=== PATIENT | female | born 1955 | race Caucasian/White ===

== ENCOUNTER 2019-08-01 13:28 | Outpatient (CLI) | payer OTHER, SELFPAY ==
[2019-08-01 13:54] LABS: Hematocrit 50.2 % (37.0-47.0); Hemoglobin 16.3 g/dL (12.0-15.0); Mean Corpuscular HGB Conc 32.5 g/dl (32-36); Mean Corpuscular Hemoglobin 29.7 pg (26-34); Mean Corpuscular Volume 91.6 fl (80-100); Mean Platelet Volume 10.3 fl (7.4-10.4); Platelet Count Result 246 k/mm3 (150-375); Red Blood Count 5.48 M/mm3 (4.2-5.4); White Blood Count 8.7 K/mm3 (4.5-10.0)
[2019-08-01 14:08] LABS: Alanine Aminotransferase 25 U/L (4-35); Albumin Level 4.6 g/dL (3.5-5.1); Alkaline Phosphatase 95 U/L (38-126); Amylase 91 U/L (30-110); Aspartate Amino Transferase 26 U/L (14-36); Bilirubin,Total 0.3 mg/dL (0.2-1.3); Blood Urea Nitrogen 13 mg/dL (7-17); Calcium 9.2 mg/dL (8.4-10.2); Carbon Dioxide 27 mmol/L (22-30); Chloride 94 mmol/L (98-107); Estimated Glomerular Filt Rate > 60; Glucose 137 mg/dL (65-105); Lipase 162 U/L (23-300); Potassium 4.1 mmol/L (3.4-5.0); Sodium 134 mmol/L (137-145)
== END 2019-08-01 13:29 | disposition home or self-care (01) ==
PROVIDERS: PCP Internal Medicine; Visit Provider Surgery
DX: E11.8 Type 2 diabetes mellitus with unspecified complications (principal); K81.1 Chronic cholecystitis
CPT/HCPCS: 36415; 80053; 82150; 83690; 85027

== ENCOUNTER 2019-08-08 00:56 | Day surgery (SDC) | payer OTHER, SELFPAY ==
[2019-07-30 13:28] VITALS: BMI 31.8
[2019-08-08] VITALS (11 sets, daily range): BP systolic 104–139; BP diastolic 41–69; PULSE 75–86; RESP 14–20; TEMP 36.6; O2SAT 91–100
[2019-08-08] MEDS: LACTATED RINGERS 1,000 ML 30 ML IV CONT ×2 (06:30→09:14)
[2019-08-08 06:40] LABS: Glucose Point of Care 112 (65-105)
--- NOTE | 2019-08-08 06:43 | WPDANESEPP ---
Anes - Eval Pre Procedure Procedure: Operation Date: 08/08/19 07:30 Proposed Procedures p Laparoscopic Cholecystectomy, Possible Intraoperative Cholangiogram, Possible Open - Leno Suárez MD Date/Time: 08/08/19 06:43 Pre Op Diagnosis: Acute Cholecystitis Patient Data Age: 63 Gender: F Height: 5 ft Weight: 73.94 kg Allergies Allergy/AdvReac Type Severity Reaction Status Date / Time thiopental AdvReac Intermediate N/V AND Verified 08/08/19 06:23 RASH WITH SODIUM PENTOTHAL Home Medications Medication Instructions Recorded Confirmed Type metformin 1,000 mg tablet 1,000 mg PO BID #180 tablet 05/20/19 08/08/19 Rx atorvastatin 40 mg tablet 40 mg PO DAILY 06/17/19 08/08/19 History glycopyrrolate 9 mcg-formoterol 2 puff INHALATION BID PRN 06/17/19 08/08/19 History 4.8 mcg HFA aerosol inhaler vortioxetine 10 mg tablet 10 mg PO DAILY 06/17/19 08/08/19 History ertugliflozin 15 mg tablet 15 mg PO QAM #90 tablet 06/18/19 08/08/19 Rx ondansetron HCl 4 mg tablet 4 mg PO Q8H PRN #30 tablet 07/18/19 08/08/19 Rx aspirin [Adult Low Dose Aspirin] 81 mg PO DAILY 07/21/19 08/08/19 History glimepiride 2 mg PO DAILY 07/21/19 08/08/19 History pantoprazole 40 mg PO QAM #30 tablet 07/23/19 08/08/19 Rx multivitamin with minerals 1 tablet PO DAILY 07/30/19 08/08/19 History [Hair,Skin and Nails] trazodone 100 mg PO HS 07/30/19 08/08/19 History nystatin 100,000 unit/gram topical 1 applic TOPICAL BID #15 gm 08/06/19 08/08/19 Rx powder Laboratory Tests 08/08/19 06:36 POC Capillary Glucose 112 mg/dl H mg/dl (65-105) Patient hx anesthesia problems: none Family hx anesthesia problems: none PMFSH Past Medical History Medical History Anxiety and depression Benign essential hypertension Biliary dyskinesia Chronic low back pain Chronic obstructive pulmonary disease Mixed hyperlipidemia Pancreatitis Rheumatoid arthritis of unspecified site with involvement of other organs and systems Type 2 diabetes mellitus with complication Surgical History Surgical History H/O tubal ligation History of appendectomy Open appendectomy for ruptured appendicitis History of arthroplasty of finger of right hand History of tonsillectomy S/P thoracentesis On the left Total knee replacement status Left Family History Family History Grandparent Diabetes mellitus Father Lung cancer Mother Heart attack Social History Social History Social History: The patient has a significant other but does not have a durable power employee benefits attorney for healthcare. The patient desires to be a full code. She has 3 sons. The patient is on disability. She has smoked a pack a cigarettes a day for 40 years. She may be drinks twice a year. She does use marijuana about twice a week for her pain. Smoking packs per day: 1 Smoking cigarettes per day: 20.0 Years smoked: 40 Smoking pack-years: 40.00 Smoking status: Current every day smoker Tobacco type: cigarettes Smoking end date: 07/20/19 Alcohol intake: current Substance use: current Substance use type: marijuana Other substance usage details: occasional marijuana use Last use: 07-20-19 Additional living arrangements comments: Lives with her boyfriend. Additional occupation/education comments: On disability. Gender identity (if verbalized by the patient): Female Spiritual care concerns: No Agree to blood products: Yes Exam Day of Procedure 08/08/19 06:43
--- NOTE | 2019-08-08 06:49 | P.PNAN_ITS ---
Anes - Eval Final PreProcedure Day of Procedure 08/08/19 06:49 Patient weight: obese Heart: regular rate and rhythm Lungs: clear to auscultation and normal air movement Airway: Mallampati scale class II Neurological: alert and oriented Last oral intake: >/= 8 hours ASA classification: III Emergent: no Anesthetic plan: proceed Anesthesia type and monitoring: general ETT Informed Consent: The patient's anesthetic plan and its attendant risks and be nefits were discussed with the patient/family/POA. Questions were solicited and answers provided to the satisfaction of the patient/family/POA.
--- NOTE | 2019-08-08 07:10 | SUR.PREOP ---
0620-STATES NO CHANGE SINCE INTERVIEW.
--- NOTE | 2019-08-08 07:14 | WPDHPUPDATE1 ---
History and Physical Update Update Date/Time: 08/08/19 07:14 History and Physical has been reviewed, including an updated exam of the patient. There are NO changes in the patient's condition. Risks, benefits, and alternatives have been discussed and questions answered. Patient agrees to proceed with procedure.
[2019-08-08] MEDS: ceFAZolin 2 GM/D5W 50 ML 2 GM/50 ML BAG IVPB (07:26)
[2019-08-08] MEDS: BUPIVACAINE/EPINEPHRINE 0.5% 30 ML VIAL INFILTRATE (07:48)
--- NOTE | 2019-08-08 09:15 | PM.PROC ---
Procedure Note - Detailed Date of procedure: 08/08/19 Pre-op diagnosis: Acute Cholecystitis Post-op diagnosis: same Procedure performed: Laparoscopic cholecystectomy Description of procedure: Procedure Details: Patient was seen preoperatively in the holding area and risks, benefits and alternatives confirmed. Patient was taken to the operating room and general anesthesia was induced. A time out was then preformed with the surgery team confirming patient and site of surgery. The abdomen was prepped and draped in the usual sterile fashion. Incision was made just below the umbilicus. Two stay sutures of O- Vicryl were used to elevate the mid-line fascia beneath the umbilicus and a small incision was made under direct vision. The peritoneum was entered. The 12 mm Servin cannula was introduced under direct vision. First under low flow and then under high flow the abdomen was insufflated with carbon dioxide never exceeding a pressure of 14. Three 5 mm trocars were then introduced under direct vision. The following trocars were introduced under direct vision: a 5 mm in the epigastrium and two 5 mm trocars along the right costal margin. There were some omental adhesions on the underside of the umbilicus and also to the underside of the gallbladder that were taken down with blunt and sharp dissection. A small amount of bleeding occurred but it was controlled with Bovie cautery. The gall bladder was grasped and the cystic duct and artery were dissected free. A window of safety was developed and a picture of taken was taken of this with the laparoscope. Following this both the cystic duct and cystic artery were clipped with an 5 mm endo-clip pipe organ installer. The cystic duct and then the cystic artery were then transected. The gall bladder was removed using electrocautery and then removed in an endobag because a small hole began draining some bile from the gallbladder as we dissected it free from the liver. The endobag with the gallbladder in it was then removed via the umbilical incision. Careful palpation of the gallbladder both within the bag and then at the end of the procedure removed from the bag did not reveal any stones within the gallbladder. The trocars were removed visualizing hemostasis and the remaining gas evacuated. The large trocar site at the umbilicus was closed with an 0 vicryl figure of 8 suture. The 2 stay sutures mentioned above on either side of the fascia were also tied together to help approximate this midline fascia. Further local anesthetic was placed into each incision for postop pain control. The skin incisions were closed with a subcuticular of 4-0 Monocryl. Surgical glue then was applied to all the incisions. Patient tolerated the procedure well was taken to the recovery room in good condition. Anesthesia: MULUGETA Surgeon: Leno Suárez MD Bleach Boiler Filler: YINKA Cade, OR 1st assist Estimated blood loss (mL): 30 Drains: No Packing: No Pathology: yes (The gallbladder) Complications: No immediate complications Condition: stable Disposition: PACU Findings: Patient had thin walled non inflamed gallbladder. There were however admit omental adhesions to the underside of the gallbladder. There were also omental he adhesions directly under the umbilicus extending down underneath the infraumbilical scar that she has in the midline. No other obvious abnormalities within the abdominal cavity.
[2019-08-08 09:44] LABS: Glucose Point of Care 178 (65-105)
[2019-08-08] MEDS: HYDROMORPHONE HCL 1 MG/ML INJ 0.25 MG IV PUSH ×4 (09:53→10:08)
== END 2019-08-08 11:30 | disposition home or self-care (01) ==
PROVIDERS: PCP Internal Medicine; Visit Provider Surgery
PROC: 0FT44ZZ Resection of Gallbladder, Percutaneous Endoscopic Approach (ICD-10-PCS; CPT 47562; principal; 2019-08-08 07:30)
DX: K81.1 Chronic cholecystitis (principal); E11.9 Type 2 diabetes mellitus without complications; I10 Essential (primary) hypertension; E78.2 Mixed hyperlipidemia; J44.9 Chronic obstructive pulmonary disease, unspecified; M06.9 Rheumatoid arthritis, unspecified; F41.8 Other specified anxiety disorders; Z79.84 Long term (current) use of oral hypoglycemic drugs; Z79.82 Long term (current) use of aspirin; F17.210 Nicotine dependence, cigarettes, uncomplicated; F12.90 Cannabis use, unspecified, uncomplicated
CPT/HCPCS: 47562; 88304; A9270; J0690; J1100; J1170; J2250; J2370; J2405; J2704; J2710; J3010; J7120

== ENCOUNTER 2019-08-22 08:59 | Outpatient (CLI) | payer OTHER, SELFPAY ==
[2019-08-22 09:57] LABS: Alanine Aminotransferase 27 U/L (4-35); Albumin Level 4.5 g/dL (3.5-5.1); Alkaline Phosphatase 101 U/L (38-126); Aspartate Amino Transferase 29 U/L (14-36); Bilirubin,Total 0.5 mg/dL (0.2-1.3); Blood Urea Nitrogen 11 mg/dL (7-17); Carbon Dioxide 30 mmol/L (22-30); Chloride 96 mmol/L (98-107); Estimated Glomerular Filt Rate > 60; Glucose 133 mg/dL (65-105); Potassium 4.2 mmol/L (3.4-5.0); Sodium 139 mmol/L (137-145)
== END 2019-08-22 09:00 | disposition home or self-care (01) ==
PROVIDERS: PCP Internal Medicine; Visit Provider Nurse Practitioner Family
DX: K81.9 Cholecystitis, unspecified (principal)
CPT/HCPCS: 36415; 80053

== ENCOUNTER 2020-01-06 09:46 | Outpatient (CLI) | payer OTHER, SELFPAY ==
[2020-01-06 10:05] LABS: Basophils Percent Auto 0.3 % (0.2-1.2); Eosinophils Absolute Auto 0.2 K/mm3 (0-0.3); Eosinophils Percent Auto 2.6 % (0-4.4); Hematocrit 49.4 % (37.0-47.0); Hemoglobin 15.7 g/dL (12.0-15.0); Immature Granulocyte Absolute 0.01 K/mm3 (0.00-0.031); Immature Granulocyte Percent A 0.1 % (0-0.5); Lymphocytes Absolute Auto 1.33 K/mm3 (0.9-3.2); Lymphocytes Percent Auto 17.4 % (18.3-44.2); Mean Corpuscular HGB Conc 31.8 g/dl (32-36); Mean Corpuscular Hemoglobin 29.6 pg (26-34); Mean Platelet Volume 10.3 fl (7.4-10.4); Monocytes Absolute Auto 0.5 K/mm3 (0.1-0.6); Monocytes Percent Auto 6.9 % (2.6-8.5); Neutrophils Absolute Auto 5.6 K/mm3 (1.3-6.7); Neutrophils Percent Auto 72.7 % (45.5-73.1); Platelet Count Result 189 k/mm3 (150-375); Red Blood Count 5.31 M/mm3 (4.2-5.4); Red Cell Distribution Width 12.5 % (11.5-14.5); White Blood Count 7.7 K/mm3 (4.5-10.0)
[2020-01-06 10:18] LABS: Alanine Aminotransferase 21 U/L (4-35); Albumin Level 4.4 g/dL (3.5-5.1); Alkaline Phosphatase 100 U/L (38-126); Aspartate Amino Transferase 28 U/L (14-36); Bilirubin,Total 0.3 mg/dL (0.2-1.3); Blood Urea Nitrogen 10 mg/dL (7-17); Calcium 8.8 mg/dL (8.4-10.2); Carbon Dioxide 31 mmol/L (22-30); Chloride 99 mmol/L (98-107); Estimated Glomerular Filt Rate > 60; Glucose 164 mg/dL (65-105); Hemoglobin A1C 7.4 % (<5.7); Sodium 137 mmol/L (137-145)
[2020-01-06 10:45] LABS: Creatinine Urine 49.2 mg/dL
[2020-01-06 11:49] LABS: MALB Creatinine Ratio < 12.2 mg/g (0-30); Microalbumin Urine Random < 6.0 mg/L (0-16.7)
== END 2020-01-06 09:47 | disposition home or self-care (01) ==
PROVIDERS: PCP Internal Medicine; Visit Provider Internal Medicine
DX: E11.8 Type 2 diabetes mellitus with unspecified complications (principal)
CPT/HCPCS: 36415; 80053; 82043; 83036; 85025

== ENCOUNTER 2020-04-22 10:48 | Outpatient (CLI) | payer OTHER, SELFPAY ==
[2020-04-22 11:36] LABS: Basophils Percent Auto 0.4 % (0.2-1.2); Eosinophils Absolute Auto 0.2 K/mm3 (0-0.3); Eosinophils Percent Auto 2.8 % (0-4.4); Hematocrit 54.1 % (37.0-47.0); Hemoglobin 17.3 g/dL (12.0-15.0); Immature Granulocyte Absolute 0.02 K/mm3 (0.00-0.031); Immature Granulocyte Percent A 0.3 % (0-0.5); Lymphocytes Absolute Auto 1.33 K/mm3 (0.9-3.2); Lymphocytes Percent Auto 17.5 % (18.3-44.2); Mean Corpuscular Hemoglobin 30.2 pg (26-34); Mean Corpuscular Volume 94.6 fl (80-100); Mean Platelet Volume 10.4 fl (7.4-10.4); Monocytes Absolute Auto 0.5 K/mm3 (0.1-0.6); Monocytes Percent Auto 6.8 % (2.6-8.5); Neutrophils Absolute Auto 5.5 K/mm3 (1.3-6.7); Neutrophils Percent Auto 72.2 % (45.5-73.1); Platelet Count Result 241 k/mm3 (150-375); Red Blood Count 5.72 M/mm3 (4.2-5.4); Red Cell Distribution Width 12.9 % (11.5-14.5); White Blood Count 7.6 K/mm3 (4.5-10.0)
[2020-04-22 11:49] LABS: Alanine Aminotransferase 22 U/L (4-35); Albumin Level 4.7 g/dL (3.5-5.1); Alkaline Phosphatase 106 U/L (38-126); Anion Gap 9 mmol/L (8-16); Aspartate Amino Transferase 34 U/L (14-36); Bilirubin,Total 0.4 mg/dL (0.2-1.3); Blood Urea Nitrogen 14 mg/dL (7-17); Calcium 9.1 mg/dL (8.4-10.2); Carbon Dioxide 32 mmol/L (22-30); Chloride 98 mmol/L (98-107); Estimated Glomerular Filt Rate > 60; Glucose 194 mg/dL (65-105); Hemoglobin A1C 6.9 % (<5.7); Potassium 4.8 mmol/L (3.4-5.0); Sodium 139 mmol/L (137-145)
[2020-04-22 12:53] LABS: Creatinine Urine 29.3 mg/dL
[2020-04-22 12:58] LABS: MALB Creatinine Ratio < 20.5 mg/g (0-30); Microalbumin Urine Random < 6.0 mg/L (0-16.7)
== END 2020-04-22 10:49 | disposition home or self-care (01) ==
LOC: ANHLAB 10:49
PROVIDERS: PCP Internal Medicine; Visit Provider Internal Medicine
DX: E11.8 Type 2 diabetes mellitus with unspecified complications (principal)
CPT/HCPCS: 36415; 80053; 82043; 83036; 85025

== ENCOUNTER 2020-05-13 09:49 | Outpatient (CLI) | payer OTHER, SELFPAY ==
--- NOTE | ~2020-05-13 | MM_ITS ---
EXAMINATION: MM screening [facility] BI w [place] HISTORY: Screening mammogram TECHNIQUE: Craniocaudal and mediolateral oblique 3-D tomosynthesis images were obtained and synthetic 2-D images were generated. CAD analysis was submitted and interpreted. COMPARISON: 12/25/2018, 06/02/2016 BREAST PARENCHYMAL COMPOSITION: The breasts are almost entirely fatty. FINDINGS: RIGHT BREAST: There is no evidence of suspicious mass, calcification, or architectural distortion to suggest malignancy. There has been no significant interval change. LEFT BREAST: A mass is present in the far posterior third of the breast on mediolateral oblique tomos ynthesis image . IMPRESSION: 1. Left breast mass. 2. Additional mammographic views and possible breast ultrasound are recommended. BI-RADS Category 0: Incomplete: Needs additional imaging evaluation. Reviewed, dictated and finalized at location A. GER STERILE IMPRESSION: 1. Left breast mass. 2. Additional mammographic views and possible breast ultrasound are recommended . BI-RADS Category 0: Incomplete: Needs additional imaging evaluation.
== END 2020-05-13 09:50 | disposition home or self-care (01) ==
LOC: ANHIMG 09:53
PROVIDERS: PCP Internal Medicine; Visit Provider Internal Medicine
DX: Z12.31 Encounter for screening mammogram for malignant neoplasm of breast (principal); R92.8 Other abnormal and inconclusive findings on diagnostic imaging of breast
CPT/HCPCS: 77063; 77067

== ENCOUNTER 2020-06-02 11:15 | Outpatient (CLI) | payer OTHER, SELFPAY ==
--- NOTE | ~2020-06-02 | US_ITS ---
EXAMINATION: US pelvic complete w TV DATE: 06/02/2020 11:36 INDICATION: Postmenopausal bleeding. TECHNIQUE: Multiple transabdominal and transvaginal sonographic images of the pelvis were obtained. COMPARISON: CT abdomen and pelvis 08/26/2018 FINDINGS: TRANSABDOMINAL ULTRASOUND: The uterus measures 5.0 x 2.5 x 3.8 cm. There is no free fluid in the pelvis. TRANSVAGINAL ULTRASOUND: The endometrial complex measures 6 mm in thickness. The ovaries are not visualized. IMPRESSION: 1. Thickened endometrial complex. The differential diagnosis includes endometrial hyperplasia, polyp, and carcinoma. Biopsy is recommended. Reviewed, dictated and finalized at location A. TRICAL LINE SPLICER IMPRESSION: 1. Thickened endometrial complex. The differential diagnosis includes endometri al hyperplasia, polyp, and carcinoma. Biopsy is recommended.
== END 2020-06-02 11:16 | disposition home or self-care (01) ==
LOC: ANHIMG 11:16
PROVIDERS: PCP Internal Medicine; Visit Provider Obstetrics & Gynecology
DX: N95.0 Postmenopausal bleeding (principal)
CPT/HCPCS: 76830; 76856

== ENCOUNTER 2020-06-07 12:13 | Outpatient (CLI) | payer OTHER, SELFPAY ==
--- NOTE | ~2020-06-07 | MMUS_ITS ---
EXAMINATION: MM diagnostic mammo unilat LT, US breast LT limited HISTORY: Follow-up left breast mass TECHNIQUE: Additional 3-D tomosynthesis images of the left breast were performed and synthetic 2-D im ages were generated. CAD analysis was submitted and interpreted. High resolution left breast ultrasou nd was performed. COMPARISON: None BREAST PARENCHYMAL COMPOSITION: Breast composed of scattered areas of fibroglandular density FINDINGS: MAMMOGRAPHIC FINDINGS: There is a 5 mm mass in the lower outer quadrant of the left breast. There are benign calcifications . ULTRASOUND: Left breast ultrasound: At 12:00, 6 cm from the nipple there is a 4 mm cyst. There is a focal echogenic area with posterior s hadowing at 2:00, 2 cm from the nipple, corresponding to calcification. IMPRESSION: 1. No evidence for malignancy in either breast. Benign findings of the left breast. 2. Routine yearly screening mammogram and regular clinical breast examination are recommended. BI-RADS Category 2: Benign finding(s). Reviewed, dictated and finalized at location A. UR CHLORIDE OPERATOR IMPRESSION: 1. No evidence for malignancy in either breast. Benign findings of the left carlos ast. 2. Routine yearly screening mammogram and regular clinical breast examination a re recommended. BI-RADS Category 2: Benign finding(s).
== END 2020-06-07 12:14 | disposition home or self-care (01) ==
LOC: ANHIMG 12:14
PROVIDERS: PCP Internal Medicine; Visit Provider Internal Medicine
DX: N63.20 Unspecified lump in the left breast, unspecified quadrant (principal)
CPT/HCPCS: 76642; 77065

== ENCOUNTER 2020-09-01 11:23 | Outpatient (CLI) | payer OTHER, SELFPAY ==
[2020-09-01 12:04] LABS: Hematocrit 49.9 % (37.0-47.0); Hemoglobin 16.2 g/dL (12.0-15.0); Mean Corpuscular HGB Conc 32.5 g/dl (32-36); Mean Corpuscular Hemoglobin 30.2 pg (26-34); Mean Corpuscular Volume 92.9 fl (80-100); Mean Platelet Volume 10.2 fl (7.4-10.4); Platelet Count Result 217 k/mm3 (150-375); Red Blood Count 5.37 M/mm3 (4.2-5.4); Red Cell Distribution Width 12.3 % (11.5-14.5)
[2020-09-01 12:29] LABS: Alanine Aminotransferase 24 U/L (4-35); Albumin Level 4.4 g/dL (3.5-5.1); Alkaline Phosphatase 90 U/L (38-126); Anion Gap 7 mmol/L (8-16); Aspartate Amino Transferase 30 U/L (14-36); Bilirubin,Total 0.3 mg/dL (0.2-1.3); Blood Urea Nitrogen 12 mg/dL (7-17); Calcium 8.8 mg/dL (8.4-10.2); Carbon Dioxide 33 mmol/L (22-30); Chloride 101 mmol/L (98-107); Cholesterol 146 mg/dL (0-200); Estimated Glomerular Filt Rate > 60; Glucose 182 mg/dL (65-105); HDL Direct 58 mg/dL; Potassium 4.3 mmol/L (3.4-5.0); Sodium 141 mmol/L (137-145); Triglycerides 175 mg/dL (<150)
[2020-09-01 12:39] LABS: LDL Cholesterol Direct 56 mg/dL
[2020-09-01 13:06] LABS: Hemoglobin A1C 6.3 % (<5.7)
[2020-09-01 13:20] LABS: Vitamin D 25 Hydroxy 27.9 ng/mL
[2020-09-01 13:23] LABS: Creatinine Urine 48.2 mg/dL
[2020-09-01 14:04] LABS: MALB Creatinine Ratio < 12.4 mg/g (0-30); Microalbumin Urine Random < 6.0 mg/L (0-16.7)
== END 2020-09-01 11:24 | disposition home or self-care (01) ==
PROVIDERS: PCP Internal Medicine; Visit Provider Internal Medicine
DX: D75.1 Secondary polycythemia (principal); E11.8 Type 2 diabetes mellitus with unspecified complications; F32.9 Major depressive disorder, single episode, unspecified; F41.9 Anxiety disorder, unspecified; I10 Essential (primary) hypertension; E78.2 Mixed hyperlipidemia; G25.81 Restless legs syndrome; E55.9 Vitamin D deficiency, unspecified
CPT/HCPCS: 36415; 80053; 80061; 82043; 82306; 83036; 84443; 85027

== ENCOUNTER 2020-09-10 16:21 | Outpatient (CLI) | payer OTHER, SELFPAY ==
--- NOTE | ~2020-09-10 | CT_ITS ---
EXAMINATION: CT lung screening DATE: 09/10/2020 16:41 INDICATION: Smoker, cough. COPD. Personal history of nicotine dependence. TECHNIQUE: Computed tomography (CT) of the chest was performed without intravenous contrast. The dose -length product was 126.19 mGy-cm. Automated exposure control and iterative reconstruction technique were employed. COMPARISON: CT dated 01/09/2019 FINDINGS: Heart size is normal. Nonenlarged mediastinal lymph nodes, likely reactive. No significant pleural or pericardial effusion. There is atherosclerosis of the aorta and coronary arteries. There a re cholecystectomy clips. There is a subsolid 3 mm nodule left lower lobe, image 50. There is a some solid right lower lobe nodule, superior segment, image 46, not definitely seen on prior examination. There is a subsolid 3 mm nodule left lower lobe, image 64. No endobronchial lesions. No pneumothorax. No focal parenchymal consolidation. Mild thoracic spondylosis. No lytic or blastic lesions. IMPRESSION: 1. Lung-RADS category 2: Benign appearance or behavior. Continue annual screening with noncontrast lo w-dose chest CT in 12 months. Reviewed, dictated and finalized at location A. ILL HAND IMPRESSION: 1. Lung-RADS category 2: Benign appearance or behavior. Continue annual screeni ng with noncontrast low-dose chest CT in 12 months.
== END 2020-09-10 16:22 | disposition home or self-care (01) ==
LOC: ANHIMG 16:22
PROVIDERS: PCP Internal Medicine; Visit Provider Internal Medicine
DX: Z87.891 Personal history of nicotine dependence (principal)
CPT/HCPCS: 71271

== ENCOUNTER 2020-10-26 14:50 | Inpatient (IN) | payer OTHER, SELFPAY ==
[2020-10-26] VITALS (11 sets, daily range): BP systolic 139–164; BP diastolic 64–134; PULSE 89–110; RESP 17–42; TEMP 36.3–36.4; O2SAT 93–96; BMI 32.7
--- NOTE | ~2020-10-26 | XR_ITS ---
EXAMINATION: XR chest 1V portable 10/28/2020 14:49 INDICATION: Chest pain PROCEDURE: AP portable chest COMPARISON: Comparison to multiple prior studies sequentially, with oldest reviewed study dated 05/02. FINDINGS: The lungs are clear. The cardiomediastinal silhouette is within normal limits. There are no pleural effusions. There is no pneumothorax suspected. IMPRESSION: 1: NO ACUTE CARDIOPULMONARY DISEASE. Reviewed, dictated and finalized at location B.
--- NOTE | ~2020-10-26 | CT_ITS ---
EXAMINATION: CTA chest PE protocol DATE: 10/26/2020 17:56 INDICATION: Shortness of breath and chest pain TECHNIQUE: Computed tomography (CT) pulmonary angiogram of the chest was performed with 100 mL Omnipa que-350 intravenous contrast. Additional 3D reconstructions utilizing coronal maximum intensity proje ction (MIP) were performed. Automated exposure control and iterative reconstruction technique were em ployed. The dose-length product was 499.99 mGy-cm. COMPARISON: Chest CT dated 09/10/2020 FINDINGS: Good contrast opacification of the pulmonary arteries. There is mild streak artifact from dense contr ast in the superior vena cava and right atrium. Mild moderate basilar predominant scattered respirato ry motion artifact which decreases sensitivity in some of the smaller basilar subsegmental pulmonary arteries. No pulmonary embolism. And of atelectasis/scarring in the right middle lobe. There are mult iple new tiny centrilobular nodules with tree-in-bud pattern scattered throughout both lungs consiste nt with endobronchial spread of infectious or inflammatory disease no pulmonary edema, pleural effusi on or pneumothorax. Heart size is normal. Atherosclerotic coronary artery calcification. Thoracic aor ta is normal in caliber with no dissection. Interval increase in size of a a few likely reactive medi astinal and bilateral hilar lymph nodes the largest a 1.9 x 1.3 cm subcarinal lymph node. Cholecystec remington clips in the right upper quadrant. Mild thoracic spondylosis. IMPRESSION: 1. No pulmonary embolism. 2. Numerous small centrilobular pulmonary nodules with tree-in-bud pattern scattered throughout both lungs consistent with endobronchial spread of likely infectious or inflammatory disease. 2. Likely reactive mild mediastinal and bilateral hilar lymphadenopathy. Reviewed, dictated and finalized at location A. IMPRESSION: 1. No pulmonary embolism. 2. Numerous small centrilobular pulmonary nodules with tree-in-bud pattern scat tered throughout both lungs consistent with endobronchial spread of likely infe ctious or inflammatory disease. 2. Likely reactive mild mediastinal and bilateral hilar lymphadenopathy.
--- NOTE | ~2020-10-26 | XR_ITS ---
EXAMINATION: XR chest 2V DATE: 10/26/2020 15:22 INDICATION: Shortness of breath and fever. TECHNIQUE: Frontal and lateral views of the chest were obtained. COMPARISON: Chest 2 views 07/22/2019, chest CT 09/10/2020 FINDINGS: The chest demonstrates clear lungs without pneumonia, pleural effusion, or pneumothorax. Th e heart size is normal. IMPRESSION: 1. No acute cardiopulmonary disease. Reviewed, dictated and finalized at location A.
[2020-10-26 15:08] LABS: Glucose Point of Care 210 (65-105)
--- NOTE | 2020-10-26 15:08 | ECG_ITS ---
Measurements Intervals [place] Rate: 87 P: 69 WI: 145 QRS: 11 QRSD: 85 T: 71 QT: 359 QTc: 432 Interpretive Statements SINUS RHYTHM ATRIAL AND VENTRICULAR PREMATURE COMPLEXES BASELINE ARTIFACT- II, III, AVR, AVL, AVF, V1-V6 BORDERLINE ECG Electronically Signed On 10-26-2020 15:37:54 CDT by Yayo Galdamez D.O.
--- NOTE | 2020-10-26 15:14 | ED.SOB ---
HPI - SOB/Dyspnea General Chief Complaint: Shortness of Breath/Dyspnea Stated Complaint: SOB Time Seen by Provider: 10/26/20 15:09 History of Present Illness HPI Narrative: 64 yo female w/ h/o COPD, fibromyalgia presents to the ED for SOB. She has had increasing SOB for the past 4 days. This is associated with headache and nausea. She also reports pain all over, but she cannot tell if this is due to her fibromyalgia. No fever, chills, nausea, vomiting. Related Data Home Medications Medication Instructions Recorded Confirmed aspirin [Adult Low Dose Aspirin] 81 mg PO DAILY 07/21/19 10/12/20 atorvastatin 40 mg PO DAILY 10/26/20 10/26/20 ertugliflozin [Steglatro] 15 mg PO DAILY 10/26/20 10/26/20 glimepiride 2 mg PO DAILY 10/26/20 10/26/20 nystatin 1 applic TOPICAL BID PRN 10/26/20 10/26/20 Allergies Allergy/AdvReac Type Severity Reaction Status Date / Time thiopental Allergy Intermediate N/V AND Verified 10/26/20 19:53 RASH WITH SODIUM PENTOTHAL Review of Systems Review of Systems: All systems reviewed & are unremarkable except as noted in HPI and below Constitutional: Constitutional: Denies chills and Denies fever(s) ENT: Denies sore throat Cardiovascular: Cardiovascular: Reports chest pain Respiratory: Respiratory: Reports chest congestion, Reports cough, Reports dyspnea and Reports wheezing Gastrointestinal: Gastrointestinal: Denies abdominal pain Genitourinary: Genitourinary: Reports no additional female genitourinary complaints Musculoskeletal: Musculoskeletal: Reports back pain Neurologic: Reports system reviewed and no additional complaints, except as documented [facility] Past Medical History Medical History (Updated 10/26/20 @ 20:11 by Sergio Espinosa MD) Anxiety and depression Benign essential hypertension Biliary dyskinesia Chronic low back pain Chronic obstructive pulmonary disease Mixed hyperlipidemia Pancreatitis Rheumatoid arthritis of unspecified site with involvement of other organs and systems Tobacco use Type 2 diabetes mellitus with complication Surgical History Surgical History H/O tubal ligation History of appendectomy Open appendectomy for ruptured appendicitis History of arthroplasty of finger of right hand History of tonsillectomy S/P thoracentesis On the left Total knee replacement status Left Family History Family History Grandparent Diabetes mellitus Father Lung cancer Mother Heart attack Social History Social History Social History: The patient has a significant other but does not have a durable power deputy commonwealth's attorney for healthcare. The patient desires to be a full code. She has 3 sons. The patient is on disability. She has smoked a pack a cigarettes a day for 40 years. She may be drinks twice a year. She does use marijuana about twice a week for her pain. Smoking packs per day: 1 Smoking cigarettes per day: 20.0 Years smoked: 40 Smoking pack-years: 40.00 Smoking status: Former smoker Tobacco type: cigarettes Smoking end date: 10/22/20 Alcohol intake: never Substance use: current Substance use type: marijuana Other substance usage details: occasional marijuana use Last use: 1 week ago Additional living arrangements comments: Lives with her boyfriend. Additional occupation/education comments: On disability. Gender identity (if verbalized by the patient): Female Spiritual care concerns: No Agree to blood products: Yes Exam Const: General: alert and ill appearing Nutritional Appearance: well nourished Orientation/consciousness: patient oriented x3 HENMT: Mouth: Yes dry mucous membranes Neck: Neck: normal visual inspection Resp: Effort & Inspection: labored and tachypneic Auscultation: clear to auscultation bilaterally C
[2020-10-26 15:16] LABS: Basophils Percent Auto 0.3 % (0.2-1.2); Eosinophils Absolute Auto 0.1 K/mm3 (0-0.3); Eosinophils Percent Auto 1.2 % (0-4.4); Hematocrit 45.3 % (37.0-47.0); Hemoglobin 14.5 g/dL (12.0-15.0); Immature Granulocyte Absolute 0.07 K/mm3 (0.00-0.031); Immature Granulocyte Percent A 0.7 % (0-0.5); Lymphocytes Absolute Auto 1.96 K/mm3 (0.9-3.2); Lymphocytes Percent Auto 18.3 % (18.3-44.2); Mean Corpuscular Hemoglobin 29.9 pg (26-34); Mean Corpuscular Volume 93.4 fl (80-100); Mean Platelet Volume 9.7 fl (7.4-10.4); Monocytes Absolute Auto 1.1 K/mm3 (0.1-0.6); Monocytes Percent Auto 10.6 % (2.6-8.5); Neutrophils Absolute Auto 7.4 K/mm3 (1.3-6.7); Neutrophils Percent Auto 68.9 % (45.5-73.1); Platelet Count Result 324 k/mm3 (150-375); Red Blood Count 4.85 M/mm3 (4.2-5.4); Red Cell Distribution Width 12.1 % (11.5-14.5); White Blood Count 10.7 K/mm3 (4.5-10.0)
[2020-10-26 15:25] LABS: Lactic Acid Reflex 1.7 mmol/L (0.7-2.1)
[2020-10-26 15:26] LABS: Anion Gap 9 mmol/L (8-16); Blood Urea Nitrogen 12 mg/dL (7-17); Calcium 9.2 mg/dL (8.4-10.2); Carbon Dioxide 33 mmol/L (22-30); Chloride 100 mmol/L (98-107); Estimated CRCL calculation 87 ml/min; Estimated Glomerular Filt Rate > 60; Glucose 212 mg/dL (65-105); Sodium 142 mmol/L (137-145)
[2020-10-26] MEDS: ALBUTEROL SULFATE NEB 2.5 MG/0.5 ML INH 5 MG INHALATION ×2 (15:29→21:48)
[2020-10-26] MEDS: IPRATROPIUM BR 0.02% INH SOLN 0.5 MG/2.5 ML VIAL INHALATION ×2 (15:29→21:47)
[2020-10-26 15:54] LABS: Alveolar/Arterial O2 Gradient 50.5 mmHg; Base Excess ABG 7.1 mEq/l (+/-2.0); Carboxyhemoglobin 0.7 % THb (0-2.0); Fractional Inspired Oxygen 24 %; Methemoglobin ABG 0.1 %THb (0-1.5); Oxygen Saturation ABG 93.7 % (95.0-100.0); Oxyhemoglobin 92.5 % THb (90.0-100.0); PCO2 ABG 46.3 mmHg (35.0-45.0); PO2 ABG 65.5 mmHg (80.0-100.0); PO2 FiO2 Ratio Arterial Blood 2.73 %; Reduced Hemoglobin 6.7 %THb (0-5.0); Site Drawn LEFT BRACHIAL; Total Hemoglobin 14.6 g/dL (12.0-18.0); pH ABG 7.458 (7.350-7.450)
[2020-10-26 15:55] LABS: Device NASAL CANNULA
[2020-10-26] MEDS: ALBUTEROL SULFATE NEB 2.5 MG/0.5 ML INH 10 MG INHALATION (16:30)
[2020-10-26] MEDS: IPRATROPIUM BR 0.02% INH SOLN 0.5 MG/2.5 ML VIAL 1 MG INHALATION (16:30)
[2020-10-26] MEDS: methylPREDNISolone SOD SUCC 125 MG VIAL IV PUSH (16:43)
[2020-10-26 16:57] LABS: INR 0.9; Prothrombin Time 13.1 Seconds (11.1-14.7)
[2020-10-26 16:58] LABS: Partial Thromboplastin Time 28.1 SECONDS (22.3-36.8)
[2020-10-26 17:00] LABS: CRP 8.1 mg/dL (<1.0)
--- NOTE | 2020-10-26 19:30 | ADMGEN ---
This patient, Sophia Padilla, was admitted to Medical Room 341-01. Patient/family oriented to hospital policies and general routines including ID bracelet, bed and alarms, visiting hours, pain management, procedures, bathroom and other care routines, personal items, smoking policy, room service/diet, and visiting hours. Information on how to activate the Rapid Response Team has been discussed. Patient/Family are encouraged to report perceived risks to care and to ask questions if they do not understand what they are told or what they should do.
--- NOTE | 2020-10-26 21:01 | PM.IMHP ---
H&P: HPI History of Present Illness Date/Time: 10/26/20 21:01 the patient stated that she has been smoking a pack a cigarettes a day on and off for 40 years. The patient stated that she suspected that she has COPD but was never given a PFT. The patient also has fibromyalgia and has been complaining of shortness of breath she stated since his last Sunday and she had a fever 100.3. The patient thought that she might have had COVID so she went to urgent care and got checked out today and she was afebrile and was negative for COVID-19. She has had no nausea vomiting or diarrhea. The patient Thought that she might have pneumonia since her COVID-19 test was negative. The patient does take inhalers at home and she has been using that. She does not have any oxygen at home. But she stated that she was getting short of breath just walking 5-10 feet. She said she called her [id number] to bring her some oxygen because her daughter in-law is on oxygen. The patient stated she just could not breathe. She used to the off her in-laws oxygen and that seemed to help her. The patient was given a nebulizer treatment, Solu-Medrol, Rocephin, and Zithromax in the emergency room. her white count is 10.7. Her chest x-ray was read as no acute cardiopulmonary findings. CTA was read per radiologist as no pulmonary embolism. Numerous small central lobular pulmonary nodules with tree-in-bud pattern scattered throughout both lungs consistent with endobronchial spread likely infectious or inflammatory disease. Likely reactive mild mediastinal and bilateral hilar lymphadenopathy. On 09/10/2020 the patient did have a CT lung which shows lung rads category benign appearance are behavior continue annual screening with noncontrast dosed chest CT in 12 months. The patient is being admitted to observation status on the date of service of 10/26/2020. Chief Complaint: Dyspnea on exertion Review of Systems Review of Systems: All systems reviewed & are unremarkable except as noted in HPI and below Constitutional: Constitutional: Reports as per HPI and Reports no additional constitutional complaints Eyes: Eyes: Reports as per HPI and Reports no additional eye complaints ENT: Reports system reviewed and no additional complaints, except as documented and Reports Normal hearing present Cardiovascular: Cardiovascular: Reports no additional cardiovascular complaints Respiratory: Respiratory: Reports no additional respiratory complaints and Reports no additional respiratory complaints Gastrointestinal: Gastrointestinal: Reports as per HPI and Reports no additional gastrointestinal complaints Musculoskeletal: Musculoskeletal: Reports no additional musculoskeletal complaints Integumentary/Breasts: Skin/Breast: Reports system reviewed and no additional complaints, except as docu and Reports as per HPI Neurologic: Reports system reviewed and no additional complaints, except as documented, Reports as per HPI and Reports Normal hearing present Psychiatric: Psychiatric: Reports no additional psychiatric complaints and Reports as per HPI Endocrine: Endocrine: Reports no additional endocrine complaints Hematologic/Lymphatic: Hematologic/Lymphatic: Reports no additional hematologic/lymphatic complaints Allergic/Immunologic: Allergic/Immunologic: Reports no additional allergic/immunologic complaints [facility] Past Medical History Medical History (Updated 10/26/20 @ 21:11 by Denise Bass NP) Anxiety and depression Benign essential hypertension Biliary dyskinesia Chronic low back pain Chronic obstructive pulmonary disease Mixed hyperlipidemia Pancreatitis Rheumatoid arthritis of unspecified site with involvement of other organs and systems Tobacco use Type 2 diabetes mellitus with complication Surgical History Surgical History (Updated 10/26/20 @ 21:07 by Denise Bass NP) H/O tubal ligation History of appendectomy Open appendectomy for ruptured appendicitis Hist
[2020-10-26 21:28] LABS: Glucose Point of Care 321 (65-105)
[2020-10-26] MEDS: traZODone HCL 50 MG TABLET PO (21:53)
[2020-10-26] MEDS: GABAPENTIN 300 MG CAPSULE PO (21:53)
[2020-10-26] MEDS: INSULIN ASPART (*BKC) 100 UNITS/ML 6 UNITS SUB-Q (21:53)
[2020-10-26] MEDS: DULoxetine HCL 30 MG CAPSULE.DR PO (21:53)
[2020-10-26] MEDS: methylPREDNISolone SOD SUCC 125 MG VIAL 60 MG IV PUSH (23:00)
[2020-10-27] VITALS (17 sets, daily range): BP systolic 135–144; BP diastolic 67–90; PULSE 97–120; RESP 16–22; TEMP 35.6–36.4; O2SAT 92–95
[2020-10-27] MEDS: IPRATROPIUM BR 0.02% INH SOLN 0.5 MG/2.5 ML VIAL INHALATION ×4 (02:40→19:18)
[2020-10-27] MEDS: ALBUTEROL SULFATE NEB 2.5 MG/0.5 ML INH 5 MG INHALATION ×2 (02:50→07:54)
[2020-10-27] MEDS: methylPREDNISolone SOD SUCC 125 MG VIAL 60 MG IV PUSH (05:42)
[2020-10-27 06:34] LABS: Basophils Percent Auto 0.1 % (0.2-1.2); Hematocrit 39.1 % (37.0-47.0); Hemoglobin 12.5 g/dL (12.0-15.0); Immature Granulocyte Absolute 0.08 K/mm3 (0.00-0.031); Lymphocytes Absolute Auto 0.59 K/mm3 (0.9-3.2); Lymphocytes Percent Auto 7.2 % (18.3-44.2); Mean Corpuscular Hemoglobin 29.7 pg (26-34); Mean Corpuscular Volume 92.9 fl (80-100); Mean Platelet Volume 9.8 fl (7.4-10.4); Monocytes Absolute Auto 0.2 K/mm3 (0.1-0.6); Neutrophils Absolute Auto 7.3 K/mm3 (1.3-6.7); Neutrophils Percent Auto 89.7 % (45.5-73.1); Platelet Count Result 304 k/mm3 (150-375); Red Blood Count 4.21 M/mm3 (4.2-5.4); White Blood Count 8.2 K/mm3 (4.5-10.0)
[2020-10-27 06:51] LABS: Alanine Aminotransferase 13 U/L (4-35); Albumin Level 3.7 g/dL (3.5-5.1); Alkaline Phosphatase 94 U/L (38-126); Anion Gap 6 mmol/L (8-16); Aspartate Amino Transferase 17 U/L (14-36); Bilirubin,Total 0.2 mg/dL (0.2-1.3); Blood Urea Nitrogen 13 mg/dL (7-17); Calcium 8.2 mg/dL (8.4-10.2); Carbon Dioxide 32 mmol/L (22-30); Chloride 101 mmol/L (98-107); Estimated CRCL calculation 89 ml/min; Estimated Glomerular Filt Rate > 60; Glucose 195 mg/dL (65-105); Magnesium 1.7 mg/dL (1.6-2.3); Potassium 4.1 mmol/L (3.4-5.0); Sodium 139 mmol/L (137-145)
[2020-10-27 07:01] LABS: Hemoglobin A1C 6.7 % (<5.7)
[2020-10-27 07:05] LABS: Glucose Point of Care 180 (65-105)
--- NOTE | 2020-10-27 07:58 | PCRCNOTE ---
Dr James wanted pt to only have 1 0.5ml of Albuterol w/atrovent instead 0f both
--- NOTE | 2020-10-27 08:12 | PM.CNPUL ---
Assessment and Plan Assessment and plan (1) COPD exacerbation: Code(s): J44.1 - Chronic obstructive pulmonary disease with (acute) exacerbation Status: Acute Assessment and Plan: Patient carries a diagnosis of COPD and has mild centrilobular emphysema on her CT scan with a history of tobacco use. I have no prior PFTs. Patient presents now with a COPD exacerbation with worsening shortness of breath, cough and increased phlegm production. Patient has improved on Solu-Medrol 60 mg IV Q 6 hours, ipratropium 0.5 mg nebulized q.6 hours, Atrovent albuterol 5 mg nebulized q.6 hours. Patient is complaining of tremors this morning and I will decrease her albuterol to 2.5 mg nebulize Q 6 hours. I will change the patient to prednisone 50 mg p.o. q.day today. Patient has tree-in-bud infiltrates in the bases on her CT scan and I will continue ceftriaxone and azithromycin at this time. Blood cultures are negative. Patient is currently on 2 L nasal cannula with saturation 93-95%. Will wean FiO2 to maintain saturations greater than 90%. Will follow with you. History of Present Illness History of Present Illness Consult date: 10/27/20 Reason for consult: COPD Chief complaint: COPD exacerbation Narrative: This is a new pulmonary consult for COPD exacerbation. This is a 74-year-old with a history of fibromyalgia and diabetes who was told she had COPD 5 years ago by her physician. She has been on inhaler since then. She has had screening CT of the chest on 09/10/2020 and 01/09/2019 that both demonstrate mild upper lobe centrilobular emphysema With 2 different 3 mm nodule in the left lower lobe. patient has never had PFTs and she is maintained on breztri inhaler 1 puff Q day. she has had no prior hospitalizations for COPD, a year ago she received antibiotics for a chest cold, and her baseline dyspnea on exertion is about 2 blocks but she is limited mainly by knee pain. Of note patient is scheduled for a home sleep study on 11/05/2020. Patient smoked tobacco from age 24-5 days ago at 1 pack per day for a total of 40 pack years. Patient was exposed to secondhand smoke from her father but is exposed to no secondhand smoke now. Patient smokes marijuana on a daily basis up until 2 weeks ago for her fibromyalgia and pain. Patient denies cocaine, heroin, methamphetamine use. 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 Patient was in her usual state of health until 3 days prior to admission when she developed cough and green phlegm production. Two days prior to admission she developed shortness of breath and 1 day prior to admission she was tested for COVID which was negative. Shortness of breath continued to worsen and she presented to the emergency room. Patient denies fever chills rigors wheezing or chest pain. In the emergency room she had a White blood cell count of 10.7 with 1.2% eosinophils (128/uL), CT angiogram of the chest that showed no pulmonary embolism, no focal infiltrates or consolidations and tree in bud infiltrates of the lower lobes that were mild. Patient was treated with ceftriaxone, azithromycin, Solu-Medrol, ipratropium nebulizer and albuterol nebulizer for COPD exacerbation and possible pneumonia. 10/27 today patient stat tells me that she is improved and 25% back to normal. The cough is better, the shortness of breath is better. She has no wheezing on exam. Review of Systems Review of Systems: All systems reviewed & are unremarkable except as noted in HPI and below Eyes: Eyes: Reports no additional eye complaints ENT: Reports system reviewed and no additional complaints, except as documented and Reports sinus pressure Cardiovascular: Cardiovascular: Reports no additional cardiovascular complaints Respiratory: Respiratory: Reports no additional respiratory complaints Gastrointestinal: Gastrointestinal: Reports no additional gastrointestinal co
[2020-10-27 08:25] LABS: Thyroid Stimulating Hormone Reflex 0.064 uIU/mL (0.465-4.68)
[2020-10-27] MEDS: GLIMEPIRIDE 2 MG TABLET PO (09:25)
[2020-10-27] MEDS: ASPIRIN 81 MG ENTERIC TABLET PO (09:25)
[2020-10-27] MEDS: metFORMIN HCL 500 MG TABLET 1000 MG PO ×2 (09:25→16:54)
[2020-10-27] MEDS: ATORVASTATIN 40 MG TABLET PO (09:25)
[2020-10-27] MEDS: DULoxetine HCL 30 MG CAPSULE.DR PO ×2 (09:25→20:08)
[2020-10-27] MEDS: predniSONE 10 MG TABLET 50 MG PO (09:25)
[2020-10-27] MEDS: NICOTINE (*PBKC) 21 MG PATCH 1 PATCH TRANSDERM (09:26)
[2020-10-27 10:19] LABS: Free T4 Free Thyroxine Reflex 1.49 ng/dL (0.78-2.19)
[2020-10-27 11:11] LABS: Total Triiodothyronine (T3) 1.11 NG/ML (0.97-1.69)
[2020-10-27 11:55] LABS: Glucose Point of Care 243 (65-105)
[2020-10-27] MEDS: KETOROLAC 15 MG/ML VIAL (*BKC) IV PUSH (12:00)
[2020-10-27] MEDS: INSULIN ASPART (*BKC) 100 UNITS/ML SUB-Q (12:03)
[2020-10-27] MEDS: ALBUTEROL SULFATE NEB 2.5 MG/0.5 ML INH INHALATION ×2 (13:11→19:18)
--- NOTE | 2020-10-27 14:22 | PM.IMPN ---
Progress Note: A&P Assessment and Plan (1) Acute respiratory failure with hypoxia: Code(s): J96.01 - Acute respiratory failure with hypoxia Status: Acute Assessment and Plan: Patient presents with increased shortness of breath and found to have pneumonia and COPD exacerbation. Patient was started on IV antibiotics, DuoNeb treatments, IV Solu-Medrol and a Pulmonary consultation was ordered. Patient is doing well at this time, 93% on room air. Dr. James gill box operator, evaluated the patient this morning and switched steroids to oral prednisone 50 mg. Recommended to continue IV antibiotics at this time and DuoNeb treatments. Will recheck some labs in the morning and monitor the patient's respiratory status. Appreciate pulmonary's input. (2) COPD exacerbation: Code(s): J44.1 - Chronic obstructive pulmonary disease with (acute) exacerbation Status: Acute Assessment and Plan: Continue DuoNeb treatments at this time. Appreciate pulmonary's input and recommendations for discharge planning and medications. (3) Pneumonia: Code(s): J18.9 - Pneumonia, unspecified organism Status: Acute Assessment and Plan: Continue IV antibiotics at this time. Appreciate pulmonary's input and recommendations for discharge planning and medications. (4) Tobacco abuse counseling: Code(s): Z71.6 - Tobacco abuse counseling Status: Acute Assessment and Plan: Educated patient for 3 minutes on quitting smoking. Her last cigarette was 10/24/2020. Nicotine patch is in place at this time. (5) Type 2 diabetes mellitus with complication: Code(s): E11.8 - Type 2 diabetes mellitus with unspecified complications Status: Chronic Assessment and Plan: Hemoglobin A1c Is 6.7%. Will continue her home glimepiride and Metformin. Continue monitoring glucose ACHS. Sliding scale insulin. Hypoglycemic protocol in place. (6) Hemochromatosis: Code(s): E83.119 - Hemochromatosis, unspecified Status: Acute Assessment and Plan: H&H is normal. Patient gets blood draws at times. Time Spent With Patient Time with patient: 25 - 35 minutes Subjective Date/time seen: 10/27/20 14:22 Interval history: Date of service 10/27/2020: Patient is very anxious at this time. She had a feeling matter a few minutes ago and is now having a lot of stress and anxiety. She has some shortness of breath at this time but is due to her anxiety. She states her breathing is improved. She is took a shower and she reports some ?shallow breathing?. She denies much cough. She still has a headache, denies any vision changes. Denies any chest pain, fever, chills, nausea, vomiting, abdominal pain, leg swelling, calf pain or any other symptoms at this time. Review of Systems Review of Systems: All systems reviewed & are unremarkable except as noted in HPI and below Exam Narrative: Exam Narrative: General: 64-year-old woman sitting up on the side of the bed, crying. Appears comfortable, but increased respiratory rate and tachycardia due to crying/anxious. In no acute distress. Skin: No jaundice or cyanosis. Good skin turgor. Neck: Full range of motion. Supple. Respiratory: Decreased lung sounds to upper lung andino. Normal lung sounds to bilateral lower lung andino. No wheezing, rales or rhonchi. No bony chest wall tenderness. Cardiovascular: The heart has a regular rhythm with a tachycardic rate without murmur. Lower extremities: No lower extremity edema. Distal pulses are easily palpated. No calf tenderness to palpation. Gastrointestinal: The abdomen is soft, nontender and nondistended with active bowel sounds.
[2020-10-27 18:19] LABS: Glucose Point of Care 164 (65-105)
--- NOTE | 2020-10-27 18:42 | PHAR ---
HOME MED VERIFIED STEGLATRO 15MG TABLET TAKE 1 TABLET DAILY
--- NOTE | 2020-10-27 18:46 | PHAR ---
HOME MED VERIFIED BREZTRI INHALER 2 PUFFS EVERY 12HOURS
[2020-10-27] MEDS: traZODone HCL 50 MG TABLET PO (20:08)
[2020-10-27] MEDS: GABAPENTIN 300 MG CAPSULE PO (20:08)
[2020-10-27 20:18] LABS: Glucose Point of Care 137 (65-105)
[2020-10-27] MEDS: PANTOPRAZOLE SODIUM IV 40 MG VIAL IV PUSH (20:47)
[2020-10-27] MEDS: ACETAMINOPHEN 325 MG TABLET 650 MG PO (21:58)
[2020-10-28] VITALS (17 sets, daily range): BP systolic 114–123; BP diastolic 65–82; PULSE 79–108; RESP 16–20; TEMP 35.6–36.1; O2SAT 91–100
[2020-10-28] MEDS: IPRATROPIUM BR 0.02% INH SOLN 0.5 MG/2.5 ML VIAL INHALATION ×4 (01:30→20:59)
[2020-10-28] MEDS: ALBUTEROL SULFATE NEB 2.5 MG/0.5 ML INH INHALATION ×4 (01:31→20:59)
[2020-10-28 06:19] LABS: Anion Gap 3 mmol/L (8-16); Blood Urea Nitrogen 27 mg/dL (7-17); Calcium 8.4 mg/dL (8.4-10.2); Carbon Dioxide 34 mmol/L (22-30); Chloride 103 mmol/L (98-107); Estimated CRCL calculation 75 ml/min; Estimated Glomerular Filt Rate > 60; Glucose 122 mg/dL (65-105); Magnesium 1.9 mg/dL (1.6-2.3); Sodium 140 mmol/L (137-145)
[2020-10-28 08:09] LABS: Glucose Point of Care 97 (65-105)
[2020-10-28] MEDS: ASPIRIN 81 MG ENTERIC TABLET PO (08:28)
[2020-10-28] MEDS: GLIMEPIRIDE 2 MG TABLET PO (08:28)
[2020-10-28] MEDS: DULoxetine HCL 30 MG CAPSULE.DR PO ×2 (08:28→20:26)
[2020-10-28] MEDS: metFORMIN HCL 500 MG TABLET 1000 MG PO ×2 (08:28→17:36)
[2020-10-28] MEDS: ATORVASTATIN 40 MG TABLET PO (08:28)
[2020-10-28] MEDS: PANTOPRAZOLE SODIUM IV 40 MG VIAL IV PUSH ×2 (08:29→20:26)
[2020-10-28] MEDS: NICOTINE (*PBKC) 21 MG PATCH 1 PATCH TRANSDERM (08:29)
[2020-10-28] MEDS: predniSONE 10 MG TABLET 50 MG PO (08:29)
[2020-10-28] MEDS: TOLNAFTATE 1% POWDER 45 GM BTL 1 APPLIC TOPICAL (08:31)
--- NOTE | 2020-10-28 11:00 | PM.PNPUL ---
Progress Note: A&P Assessment and Plan (1) COPD exacerbation: Code(s): J44.1 - Chronic obstructive pulmonary disease with (acute) exacerbation Status: Acute Assessment and Plan: 10/27 Patient carries a diagnosis of COPD and has mild centrilobular emphysema on her CT scan with a history of tobacco use. I have no prior PFTs. Patient presents now with a COPD exacerbation with worsening shortness of breath, cough and increased phlegm production. Patient has improved on Solu-Medrol 60 mg IV Q 6 hours, ipratropium 0.5 mg nebulized q.6 hours, Atrovent albuterol 5 mg nebulized q.6 hours. Patient is complaining of tremors this morning and I will decrease her albuterol to 2.5 mg nebulize Q 6 hours. I will change the patient to prednisone 50 mg p.o. q.day today. Patient has tree-in-bud infiltrates in the bases on her CT scan and I will continue ceftriaxone and azithromycin at this time. Blood cultures are negative. Patient is currently on 2 L nasal cannula with saturation 93-95%. Will wean FiO2 to maintain saturations greater than 90%. 10/28 Patient states that she continues to improve and is 75% back to normal. Cough is better but still persists she feels like she can take deeper breaths. Patient still producing yellow to green phlegm which is unchanged. Room air saturations are 94-95%. Continue prednisone 50, albuterol 2.5 mg nebulized q.6 hours, ipratropium 0.5 mg nebulized q.6 hours. Sputum Gram stain with gram-positive cocci awaiting identification, day 3 ceftriaxone and azithromycin. Patient will ultimately need follow-up CT scan in the future for her tree-in-bud infiltrates. Will follow with you. Subjective Date/time seen: 10/28/20 11:00 Interval history: This is a 74-year-old with a history of fibromyalgia and diabetes who was told she had COPD 5 years ago by her physician. She has been on inhaler since then. She has had screening CT of the chest on 09/10/2020 and 01/09/2019 that both demonstrate mild upper lobe centrilobular emphysema With 2 different 3 mm nodule in the left lower lobe. patient has never had PFTs and she is maintained on breztri inhaler 1 puff Q day. she has had no prior hospitalizations for COPD, a year ago she received antibiotics for a chest cold, and her baseline dyspnea on exertion is about 2 blocks but she is limited mainly by knee pain. Of note patient is scheduled for a home sleep study on 11/05/2020. Patient smoked tobacco from age 24-5 days ago at 1 pack per day for a total of 40 pack years. Patient was exposed to secondhand smoke from her father but is exposed to no secondhand smoke now. Patient smokes marijuana on a daily basis up until 2 weeks ago for her fibromyalgia and pain. Patient denies cocaine, heroin, methamphetamine use. 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 Patient was in her usual state of health until 3 days prior to admission when she developed cough and green phlegm production. Two days prior to admission she developed shortness of breath and 1 day prior to admission she was tested for COVID which was negative. Shortness of breath continued to worsen and she presented to the emergency room. Patient denies fever chills rigors wheezing or chest pain. In the emergency room she had a White blood cell count of 10.7 with 1.2% eosinophils (128/uL), CT angiogram of the chest that showed no pulmonary embolism, no focal infiltrates or consolidations and tree in bud infiltrates of the lower lobes that were mild. Patient was treated with ceftriaxone, azithromycin, Solu-Medrol, ipratropium nebulizer and albuterol nebulizer for COPD exacerbation and possible pneumonia. 10/27 today patient stat tells me that she is improved and 25% back to normal. The cough is better, the shortness of breath is better. She has no wheezing on exam. Saturations on 2 L nasal cannula 93%. Prednisone 50 started. 10/28 Patient states brittney
[2020-10-28 11:43] LABS: Glucose Point of Care 103 (65-105)
--- NOTE | 2020-10-28 13:26 | PM.IMPN ---
Progress Note: A&P Assessment and Plan (1) Acute respiratory failure with hypoxia: Code(s): J96.01 - Acute respiratory failure with hypoxia Status: Acute Assessment and Plan: Patient presents with increased shortness of breath and found to have pneumonia and COPD exacerbation. Patient was started on IV antibiotics, DuoNeb treatments, IV Solu-Medrol and a Pulmonary consultation was ordered. Patient is doing well at this time, 91% on room air. Dr. James manufacturing technology analyst, evaluated the patient this morning and will continue oral prednisone 50 mg, albuterol 2.5 mg nebulized q.6 hours, ipratropium 0.5 mg nebulized q.6 hours. Continue IV antibiotics at this time. Sputum culture is growing Gram-positive cocci. No adjustments made to medications at this time. Will follow culture tomorrow Will recheck some labs in the morning and monitor the patient's respiratory status. Appreciate pulmonary's input. (2) COPD exacerbation: Code(s): J44.1 - Chronic obstructive pulmonary disease with (acute) exacerbation Status: Acute Assessment and Plan: Continue DuoNeb treatments at this time. Appreciate pulmonary's input and recommendations for discharge planning and medications. (3) Pneumonia: Code(s): J18.9 - Pneumonia, unspecified organism Status: Acute Assessment and Plan: Continue IV antibiotics at this time. Appreciate pulmonary's input and recommendations for discharge planning and medications. (4) Tobacco abuse counseling: Code(s): Z71.6 - Tobacco abuse counseling Status: Acute Assessment and Plan: Educated patient for 3 minutes on quitting smoking. Her last cigarette was 10/24/2020. Nicotine patch is in place at this time. (5) Type 2 diabetes mellitus with complication: Code(s): E11.8 - Type 2 diabetes mellitus with unspecified complications Status: Chronic Assessment and Plan: Hemoglobin A1c Is 6.7%. Will continue her home glimepiride and Metformin. Continue monitoring glucose ACHS. Sliding scale insulin. Hypoglycemic protocol in place. (6) Hemochromatosis: Code(s): E83.119 - Hemochromatosis, unspecified Status: Acute Assessment and Plan: H&H is normal. Patient gets blood draws at times. Time Spent With Patient Time with patient: 25 - 35 minutes Subjective Date/time seen: 10/28/20 13:26 Interval history: Date of service 10/28/2020: Patient states she still having some shortness of breath with exertion and trouble taking a deep breath. Still having productive cough with yellow-green sputum. States that is unchanged in the color and more frequent. She still has a headache and a feeling of tremors when she has breathing treatments. She denies any chest pain, fever, chills, nausea, vomiting, abdominal pain, leg swelling, calf pain or any other symptoms at this time. Review of Systems Review of Systems: All systems reviewed & are unremarkable except as noted in HPI and below Exam Narrative: Exam Narrative: General: 64-year-old woman sitting up on the side of the bed eating lunch. Resting comfortably on room air. Appears comfortable. In no acute distress. Skin: No jaundice or cyanosis. Good skin turgor. Neck: Full range of motion. Supple. Respiratory: Decreased lung sounds to upper airways, good lung sounds bilateral lower lobes. No wheezing, rales or rhonchi. No bony chest wall tenderness. Cardiovascular: The heart has a regular rate and rhythm without murmur. Lower extremities: No lower extremity edema. Distal pulses are easily palpated. No calf tenderness to palpation. Gastrointestinal: The abdomen is soft, nontender and nondiste
--- NOTE | 2020-10-28 14:31 | ECG_ITS ---
Measurements Intervals [place] Rate: 95 P: 54 [place]: 151 QRS: 21 QRSD: 79 T: 55 QT: 353 QTc: 444 Interpretive Statements SINUS RHYTHM ATRIAL COUPLET AND FREQUENT ATRIAL PREMATURE COMPLEXES DELAYED PRECORDIAL R/S TRANSITION BASELINE ARTIFACT- I, II ABNORMAL ECG Electronically Signed On 10-28-2020 15:06:55 CDT by Yayo Galdamez D.O.
--- NOTE | 2020-10-28 14:40 | PC.NURSE ---
Pt having chest pain. Hospitalist informed. EKG, Portable CXR, and Troponins ordered. All within normal limits. 1545-Patient stated an hour later that she burped and felt better.
[2020-10-28 15:20] LABS: Troponin I < 0.012 ng/mL (0.000-0.034)
[2020-10-28] MEDS: GABAPENTIN 300 MG CAPSULE PO (20:26)
[2020-10-28] MEDS: traZODone HCL 50 MG TABLET PO (20:26)
[2020-10-28 21:15] LABS: Glucose Point of Care 142 (65-105)
[2020-10-29] VITALS (18 sets, daily range): BP systolic 124–135; BP diastolic 73–84; PULSE 75–110; RESP 16–18; TEMP 36.1–36.6; O2SAT 91–94
[2020-10-29] MEDS: ALBUTEROL SULFATE NEB 2.5 MG/0.5 ML INH INHALATION ×3 (02:11→14:08)
[2020-10-29] MEDS: IPRATROPIUM BR 0.02% INH SOLN 0.5 MG/2.5 ML VIAL INHALATION ×3 (02:12→14:08)
[2020-10-29 03:23] LABS: Glucose Point of Care 170 (65-105)
[2020-10-29 07:35] LABS: Glucose Point of Care 73 (65-105)
[2020-10-29 07:35] LABS: Glucose Point of Care 69 (65-105)
[2020-10-29] MEDS: predniSONE 10 MG TABLET 50 MG PO (08:27)
[2020-10-29] MEDS: NICOTINE (*PBKC) 21 MG PATCH 1 PATCH TRANSDERM (08:27)
[2020-10-29] MEDS: DULoxetine HCL 30 MG CAPSULE.DR PO ×2 (08:27→22:12)
[2020-10-29] MEDS: ATORVASTATIN 40 MG TABLET PO (08:28)
[2020-10-29] MEDS: ASPIRIN 81 MG ENTERIC TABLET PO (08:28)
[2020-10-29] MEDS: PANTOPRAZOLE SODIUM IV 40 MG VIAL IV PUSH ×2 (08:28→22:12)
--- NOTE | 2020-10-29 10:45 | PM.IMPN ---
Progress Note: A&P Assessment and Plan (1) Acute respiratory failure with hypoxia: Code(s): J96.01 - Acute respiratory failure with hypoxia Status: Acute Assessment and Plan: Patient presents with increased shortness of breath and found to have pneumonia and COPD exacerbation. Patient was started on IV antibiotics, DuoNeb treatments, IV Solu-Medrol and a Pulmonary consultation was ordered. Patient is doing well at this time, 94% on room air. Home O2 evaluation was normal, no need for oxygen upon discharge. Dr. James store consultant, evaluated the patient this morning and will continue oral prednisone 50 mg, duoneb treatments q.6 hours. Continue IV antibiotics at this time. Sputum culture is growing Gram-positive cocci. No adjustments made to medications at this time. Will follow culture tomorrow Will recheck some labs in the morning and monitor the patient's respiratory status. Appreciate pulmonary's input. (2) COPD exacerbation: Code(s): J44.1 - Chronic obstructive pulmonary disease with (acute) exacerbation Status: Acute Assessment and Plan: Continue DuoNeb treatments at this time. Appreciate pulmonary's input and recommendations for discharge planning and medications. (3) Pneumonia: Code(s): J18.9 - Pneumonia, unspecified organism Status: Acute Assessment and Plan: Continue IV antibiotics at this time. Appreciate pulmonary's input and recommendations for discharge planning and medications. (4) Chest pain: Code(s): R07.9 - Chest pain, unspecified Status: Acute Assessment and Plan: She had an episode of chest pain yesterday we chely troponins, EKG, telemetry monitoring and chest x-ray which were all normal. Believe her chest pain is due to her perfuse coughing, anxiety after taking breathing treatments. Telemetry shows no acute arrhythmia. Normal sinus rhythm heart rate eighty six, with frequent PVCs, bigeminy. Which is to be associated with her breathing treatments every 6 hours. Will DC telemetry at this time. (5) Tobacco abuse counseling: Code(s): Z71.6 - Tobacco abuse counseling Status: Acute Assessment and Plan: Educated patient for 3 minutes on quitting smoking. Her last cigarette was 10/24/2020. Nicotine patch is in place at this time. (6) Type 2 diabetes mellitus with complication: Code(s): E11.8 - Type 2 diabetes mellitus with unspecified complications Status: Chronic Assessment and Plan: Hemoglobin A1c Is 6.7%. Will hold her home medications due to some low glucoses. Continue monitoring glucose ACHS. Sliding scale insulin. Hypoglycemic protocol in place. (7) Hemochromatosis: Code(s): E83.119 - Hemochromatosis, unspecified Status: Acute Assessment and Plan: H&H is normal. Patient gets blood draws at times. Time Spent With Patient Time with patient: 25 - 35 minutes Subjective Date/time seen: 10/29/20 10:45 Interval history: Date of service 10/29/2020: Patient states she still having some shortness of breath with exertion and trouble taking a deep breath, but improving. Denies any more chest pain. She has been walking around the halls multiple times a day without any chest pain symptoms. Still having productive cough with yellow-green sputum. States that is unchanged in the color and more frequent. She still has a headache and a feeling of tremors when she has breathing treatments. She denies any chest pain, fever, chills, nausea, vomiting, abdominal pain, leg swelling, calf pain or any other symptoms at this time. Review of Systems Review of Systems: All systems reviewed & are unremar
[2020-10-29] MEDS: polyethylene glycoL 3350 17 GM POWD.PACK PO (11:06)
[2020-10-29] MEDS: DOCUSATE SODIUM 100 MG CAPSULE PO ×2 (11:06→22:12)
[2020-10-29 12:16] LABS: Glucose Point of Care 133 (65-105)
--- NOTE | 2020-10-29 12:19 | PM.PNPUL ---
Progress Note: A&P Assessment and Plan (1) COPD exacerbation: Code(s): J44.1 - Chronic obstructive pulmonary disease with (acute) exacerbation Status: Acute Assessment and Plan: 10/27 Patient carries a diagnosis of COPD and has mild centrilobular emphysema on her CT scan with a history of tobacco use. I have no prior PFTs. Patient presents now with a COPD exacerbation with worsening shortness of breath, cough and increased phlegm production. Patient has improved on Solu-Medrol 60 mg IV Q 6 hours, ipratropium 0.5 mg nebulized q.6 hours, Atrovent albuterol 5 mg nebulized q.6 hours. Patient is complaining of tremors this morning and I will decrease her albuterol to 2.5 mg nebulize Q 6 hours. I will change the patient to prednisone 50 mg p.o. q.day today. Patient has tree-in-bud infiltrates in the bases on her CT scan and I will continue ceftriaxone and azithromycin at this time. Blood cultures are negative. Patient is currently on 2 L nasal cannula with saturation 93-95%. Will wean FiO2 to maintain saturations greater than 90%. 10/28 Patient states that she continues to improve and is 75% back to normal. Cough is better but still persists she feels like she can take deeper breaths. Patient still producing yellow to green phlegm which is unchanged. Room air saturations are 94-95%. Continue prednisone 50, albuterol 2.5 mg nebulized q.6 hours, ipratropium 0.5 mg nebulized q.6 hours. Sputum Gram stain with gram-positive cocci awaiting identification, day 3 ceftriaxone and azithromycin. Patient will ultimately need follow-up CT scan in the future for her tree-in-bud infiltrates. Home O2 assessment with rest RA sats 93% and ambulation sats 91%. Does not need oxygen. 10/29 Patient states that she continues to improve and is 80% back to normal. Cough is improving. Patient still producing yellow to green phlegm which is unchanged. Room air saturations are 94%. Day 4 antibiotics. I will order overnight oximetry on room air to asses need for oxygen a t night. Anticipate DC home 10/30 on these pulmonary medications: Prednisone 50 mg PO last dose 10/31 Levaquin 750 mg PO last dose 11/04. Breztri 160/9/4.8 at 2 puffs BID Rescue albuterol 2 puffs PRN SOB or wheezing Smoking cessation. She tells me she is done with tobacco. Follow up in pulmonary clinic 3-4 weeks. She will need outpatient PFTs and CT scan in about 6 weeks to follow tree and bud infiltrates on CT scan. Will follow with you. Subjective Date/time seen: 10/29/20 12:19 Interval history: This is a 74-year-old with a history of fibromyalgia and diabetes who was told she had COPD 5 years ago by her physician. She has been on inhaler since then. She has had screening CT of the chest on 09/10/2020 and 01/09/2019 that both demonstrate mild upper lobe centrilobular emphysema With 2 different 3 mm nodule in the left lower lobe. patient has never had PFTs and she is maintained on breztri inhaler 1 puff Q day. she has had no prior hospitalizations for COPD, a year ago she received antibiotics for a chest cold, and her baseline dyspnea on exertion is about 2 blocks but she is limited mainly by knee pain. Of note patient is scheduled for a home sleep study on 11/05/2020. Patient smoked tobacco from age 24-5 days ago at 1 pack per day for a total of 40 pack years. Patient was exposed to secondhand smoke from her father but is exposed to no secondhand smoke now. Patient smokes marijuana on a daily basis up until 2 weeks ago for her fibromyalgia and pain. Patient denies cocaine, heroin, methamphetamine use. 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 Patient was in her usual state of health until 3 days prior to admission when she developed cough and green phlegm production. Two days prior to admission she developed shortness of breath and 1 day prior to admission she was tested for COVID which was negative. Shortness of
[2020-10-29 16:29] LABS: Glucose Point of Care 243 (65-105)
[2020-10-29] MEDS: INSULIN ASPART (*BKC) 100 UNITS/ML SUB-Q (16:29)
[2020-10-29 20:48] LABS: Glucose Point of Care 182 (65-105)
--- NOTE | 2020-10-29 21:58 | PCRCNOTE ---
Window of time for administration has passed. See next scheduled administration.
[2020-10-29] MEDS: GABAPENTIN 300 MG CAPSULE PO (22:12)
[2020-10-29] MEDS: traZODone HCL 50 MG TABLET PO (22:12)
[2020-10-30 05:11] VITALS: BP 122/83; PULSE 80; RESP 18; TEMP 36.9; O2SAT 98
[2020-10-30 06:12] LABS: Hematocrit 40.8 % (37.0-47.0); Hemoglobin 13.3 g/dL (12.0-15.0); Mean Corpuscular HGB Conc 32.6 g/dl (32-36); Mean Corpuscular Hemoglobin 29.9 pg (26-34); Mean Corpuscular Volume 91.7 fl (80-100); Mean Platelet Volume 9.2 fl (7.4-10.4); Platelet Count Result 286 k/mm3 (150-375); Red Blood Count 4.45 M/mm3 (4.2-5.4); Red Cell Distribution Width 12.2 % (11.5-14.5)
[2020-10-30 06:26] LABS: Blood Urea Nitrogen 20 mg/dL (7-17); Carbon Dioxide > 40 mmol/L (22-30); Chloride 99 mmol/L (98-107); Estimated CRCL calculation 74 ml/min; Estimated Glomerular Filt Rate > 60; Glucose 91 mg/dL (65-105); Magnesium 1.7 mg/dL (1.6-2.3); Potassium 4.1 mmol/L (3.4-5.0); Sodium 140 mmol/L (137-145)
[2020-10-30 06:55] LABS: Glucose Point of Care 78 (65-105)
[2020-10-30] MEDS: NICOTINE (*PBKC) 21 MG PATCH 1 PATCH TRANSDERM (08:20)
[2020-10-30] MEDS: polyethylene glycoL 3350 17 GM POWD.PACK PO (08:20)
[2020-10-30] MEDS: predniSONE 10 MG TABLET 50 MG PO (08:20)
[2020-10-30] MEDS: ATORVASTATIN 40 MG TABLET PO (08:20)
[2020-10-30] MEDS: DULoxetine HCL 30 MG CAPSULE.DR PO (08:20)
[2020-10-30] MEDS: ASPIRIN 81 MG ENTERIC TABLET PO (08:20)
[2020-10-30] MEDS: DOCUSATE SODIUM 100 MG CAPSULE PO (08:20)
[2020-10-30] MEDS: PANTOPRAZOLE SODIUM IV 40 MG VIAL IV PUSH (08:20)
[2020-10-30] MEDS: ALBUTEROL SULFATE NEB 2.5 MG/0.5 ML INH INHALATION (08:59)
[2020-10-30 09:00] VITALS: PULSE 80; RESP 16; O2SAT 94
[2020-10-30] MEDS: IPRATROPIUM BR 0.02% INH SOLN 0.5 MG/2.5 ML VIAL INHALATION (09:00)
[2020-10-30 09:09] VITALS: PULSE 76; RESP 16
--- NOTE | 2020-10-30 10:52 | PM.DS ---
DS: Admitting Diagnosis Admitting Diagnosis Admitting Diagnosis: SOB DS: Discharge Diagnosis Discharge Diagnosis (1) Acute respiratory failure with hypoxia: Code(s): J96.01 - Acute respiratory failure with hypoxia Status: Acute Assessment and Plan: Patient presents with increased shortness of breath and found to have pneumonia and COPD exacerbation. Patient was started on IV antibiotics, DuoNeb treatments, IV Solu-Medrol and a Pulmonary consultation was ordered. Patient is doing well at this time, 94% on room air. Home O2 evaluation was normal, no need for oxygen upon discharge. Dr. James regional education manager recommended discharge medications to include: Prednisone 50 mg PO last dose 10/31 Levaquin 750 mg PO last dose 11/04. Breztri 160/9/4.8 at 2 puffs BID Rescue albuterol 2 puffs PRN SOB or wheezing Sputum culture was shown to be growing normal oral kedar and was not further grown out by [facility]. Patient overall improving and ready for discharge home on her birthday. Follow up with Pulmonology as an outpatient in 3-4 weeks. She will need outpatient PFTs and CT scan in about 6 weeks to follow tree and bud infiltrates on CT scan. (2) COPD exacerbation: Code(s): J44.1 - Chronic obstructive pulmonary disease with (acute) exacerbation Status: Acute Assessment and Plan: See above (3) Pneumonia: Code(s): J18.9 - Pneumonia, unspecified organism Status: Acute Assessment and Plan: See above (4) Chest pain: Code(s): R07.9 - Chest pain, unspecified Status: Acute Assessment and Plan: She had an episode of chest pain yesterday we chely troponins, EKG, telemetry monitoring and chest x-ray which were all normal. Believe her chest pain is due to her perfuse coughing, anxiety after taking breathing treatments. Telemetry shows no acute arrhythmia. Normal sinus rhythm heart rate eighty six, with frequent PVCs, bigeminy. Which is to be associated with her breathing treatments every 6 hours. Will DC telemetry at this time. (5) Tobacco abuse counseling: Code(s): Z71.6 - Tobacco abuse counseling Status: Acute Assessment and Plan: Educated patient for 3 minutes on quitting smoking. Her last cigarette was 10/24/2020. Nicotine patch will be prescribed to make sure she quits smoking. She agrees with the plan. (6) Type 2 diabetes mellitus with complication: Code(s): E11.8 - Type 2 diabetes mellitus with unspecified complications Status: Chronic Assessment and Plan: Hemoglobin A1c Is 6.7%. Continue home meds upon discharge. (7) Hemochromatosis: Code(s): E83.119 - Hemochromatosis, unspecified Status: Acute Assessment and Plan: H&H is normal. Follow up with Vp Clinical DS: Summary Hospital Course Reason for hospitalization: The patient is a 65 year old woman with a history of COPD, smoker, who presented to the ER with symptoms of worsening SOB. Initial vitals showed she was afebrile, nontachycardic, increased RR at 42, elevated BP 164/134, O2 96% on 2L NC. Initial labs showed slight leukocytosis at 10,700, normal neutrophil, normal coag panel. CXR showed No acute cardiopulmonary disease. CTA Chest showed No pulmonary embolism. Numerous small centrilobular pulmonary nodules with tree-in-bud pattern scattered throughout both lungs consistent with endobronchial spread of likely infectious or inflammatory disease. Likely reactive mild mediastinal and bilateral hilar lymphadenopathy. She was admitted into the hospital for COPD exacerbation, pneumonia started on IV abx, Solumedrol, duonebs, pulmonary consultation. Please see above un
[2020-10-30 11:31] LABS: Glucose Point of Care 171 (65-105)
--- NOTE | 2020-11-02 10:32 | PC.NURSE ---
Blood cx are negative.
== END 2020-10-30 12:35 | disposition home or self-care (01) | DRG 140 ==
LOC: ANHED 15:23 → ANH3MED 20:11
PROVIDERS: Emergency Medicine; Nurse Practitioner; Physician Assistant; Admitting Provider Internal Medicine; Emergency Provider Emergency Medicine; PCP Internal Medicine; Visit Provider Internal Medicine
DX: J44.1 Chronic obstructive pulmonary disease with (acute) exacerbation (principal); J18.9 Pneumonia, unspecified organism; J44.0 Chronic obstructive pulmonary disease with (acute) lower respiratory infection; F41.9 Anxiety disorder, unspecified; E11.8 Type 2 diabetes mellitus with unspecified complications; E83.119 Hemochromatosis, unspecified; F32.9 Major depressive disorder, single episode, unspecified; E78.2 Mixed hyperlipidemia; I10 Essential (primary) hypertension; M06.9 Rheumatoid arthritis, unspecified; G89.29 Other chronic pain; M54.9 Dorsalgia, unspecified; M79.7 Fibromyalgia; Z96.652 Presence of left artificial knee joint; Z90.49 Acquired absence of other specified parts of digestive tract; Z87.891 Personal history of nicotine dependence
CPT/HCPCS: 36415; 36600; 71045; 71046; 71275; 80048; 80053; 82375; 82805; 82948; 83036; 83050; 83605; 83735; 84439; 84443; 84480; 84484; 85025; 85027; 85610; 85730; 86140; 87040; 87070; 87205; 93005; 94618; 94640; 94667; 94762; 96365; 96367; 96374; 96375; 96376; 99285; A9270; C9113; G0378; G0379; J0131; J0456; J0696; J1815; J1885; J2930; J7512; Q9967

== ENCOUNTER → 2020-11-29 02:08 | Outpatient (CLI) | payer OTHER, SELFPAY ==
[2020-11-29 17:04] LABS: SARS-CoV-2 RNA PCR Negative
== END ==
PROVIDERS: PCP Internal Medicine; Visit Provider Internal Medicine Critical Care Medicine
DX: Z01.812 Encounter for preprocedural laboratory examination (principal); Z20.822 Contact with and (suspected) exposure to COVID-19
CPT/HCPCS: C9803; U0003; U0005

== ENCOUNTER → 2020-12-01 08:09 | Outpatient (CLI) | payer OTHER, SELFPAY ==
--- NOTE | 2020-12-17 17:41 | WPDSLEEPSTUD ---
Sleep Study Date of Study: 12/01/20 Ordering Provider: Ishan James MD Interpreting Physician: Jordana Puckett MD Sleep Study Type: Polysomnogram Height: 1.52 m Weight: 73.482 kg Body Mass Index: 31.6 Neck Circumference (inches): 15 [place]: 15 Reason for Sleep Study hypersomnia Sleep History Sophia Padilla is a 65 year old female with loud snoring and constant fatigue. This is been going on for years. She has a difficult time falling asleep, she wakes up throughout the night and she always has daytime sleepiness. She occasionally awakens from sleep feeling short of breath. She rarely awakens at night with heartburn, belching or coughing. She constantly snores and is constantly loud enough that others complain about it. She constantly has trouble sleeping with a cold. She does not wake up gasping for breath at night. She occasionally has breathing problems at night observed by others. She occasionally sweats excessively at night and notices her heart pounding or beating irregularly at night. She frequently falls asleep during the day, occasionally falls asleep involuntarily but never falls asleep while driving. She does not have loss of muscle tone with strong emotion. She does not have daytime difficulties due to her excessive sleepiness. She does not feel paralyzed on waking or falling asleep. She rarely has vivid dream like scenes upon awakening or falling asleep. She is not afraid to go to sleep. She occasionally has nightmares. She frequently remembers her dreams. She constantly has racing thoughts. She frequently feels sad or depressed. She constantly has anxiety. She frequently has muscular tension. She frequently notices parts of her body jerking and she frequently kicks at night. She occasionally has crawling and aching feelings in her legs. She frequently has leg pain at night. She does not have morning jaw pain and does not grind her teeth during sleep. She constantly is bothered by pain during the day, constantly awakened by pain at night, constantly wakes up feeling stiff in the morning with sore achy muscles and pain in the neck and spine. She has fatigue, depression, headaches, palpitations, and insomnia. Normal bedtime is 9:00 p.m., taking a few hours to fall asleep, typically waking 3-4 times at night. While awake she stays in bed, thinks about different aspects of her life. She tries to get back to sleep. It takes usually a 1/2 hour. She is on disability. She takes naps in the afternoon or evening. She may feel refreshed after short 10-15 minute nap. She is usually drowsy in the morning for 3 hours or longer. She feels better in the afternoon compared to other times of day. Habits: She is a former smoker. She drinks caffeine 6 servings a day. No alcohol or recreational drugs. [facility], [facility] Past Medical History Medical History (Updated 12/17/20 @ 18:12 by Jordana Puckett MD) Anxiety and depression Benign essential hypertension Biliary dyskinesia Chronic low back pain Chronic obstructive pulmonary disease Chronic pain GERD (gastroesophageal reflux disease) Mixed hyperlipidemia Pancreatitis Rheumatoid arthritis of unspecified site with involvement of other organs and systems Tobacco use Type 2 diabetes mellitus with complication Surgical History Surgical History H/O tubal ligation History of appendectomy Open appendectomy for ruptured appendicitis History of arthroplasty of finger of right hand History of tonsillectomy Hx of cholecystectomy S/P thoracentesis On the left Total knee replacement status Left Family History Family History Grandparent Diabetes mellitus Father Lung cancer Mother Heart attack Social History Social History Social History: The patient has a significant other. the patient would like her
[2020-12-17 17:43] VITALS: BMI 31.6
== END ==
PROVIDERS: PCP Internal Medicine; Visit Provider Internal Medicine Pulmonary Disease
DX: G47.36 Sleep related hypoventilation in conditions classified elsewhere (principal); R06.83 Snoring; J43.9 Emphysema, unspecified; Z72.821 Inadequate sleep hygiene
CPT/HCPCS: 95810

== ENCOUNTER 2020-12-08 10:22 | Outpatient (CLI) | payer OTHER, SELFPAY ==
--- NOTE | 2020-12-09 08:12 | P.PCNPFT_ITS ---
PFT Procedure Performed PFT Procedure Performed Spirometry with Pre/Post Bronchodilator Plethysmography (Lung Vol) Diffusing Cap (DLCO) Flow Vol Loop PFT Interpretation DOS: 12/08/2020] REQUESTING: Dr. James REASON FOR TESTING: Pneumonia PULMONARY FUNCTION TESTS Spirometry: FEV1 is 58% predicted, 1.22 L. FVC is 70% predicted. The FEV1/FVC ratio is 66%, reduced and consistent with airflow obstruction. The HAU96-94% is reduced at 37% predicted. After bronchodilator administration, there is a sign ificant response, the FVC increased by 15% and is normal at 81% predicted. This was greater than a 200 mL increase. The FEV1 increased by 11%. Lung volumes: Total lung capacity is 108%, normal. Vital capacity is 71% consistent with FVC. Residual volume increased 158% to system with moderate air trapping. Diffusion: DLCO is 70% Flow volume loop: There is scooping of the expiratory limb consistent with airflow obstruction. IMPRESSION: Moderate obstructive ventilatory defect with good response to bronchodilator, moderate air trapping and mild diffusion impairment. Jordana Puckett MD
== END 2020-12-08 10:23 | disposition home or self-care (01) ==
LOC: ANHPFT 10:24
PROVIDERS: PCP Internal Medicine; Visit Provider Internal Medicine Pulmonary Disease
DX: J18.9 Pneumonia, unspecified organism (principal); R94.2 Abnormal results of pulmonary function studies
CPT/HCPCS: 94060; 94726; 94729

== ENCOUNTER 2020-12-21 10:57 | Outpatient (CLI) | payer OTHER, SELFPAY ==
--- NOTE | ~2020-12-21 | CT_ITS ---
EXAMINATION: CT diagnostic chest wo con DATE: 12/21/2020 11:15 INDICATION: Pneumonia. TECHNIQUE: Computed tomography (CT) of the chest was performed without intravenous contrast. The dose -length product was 281.33 mGy-cm. Automated exposure control and iterative reconstruction technique were employed. COMPARISON: CT dated 10/26/2020 FINDINGS: There are nonenlarged mediastinal lymph nodes, likely reactive. Heart size normal. Mild ath erosclerosis. No significant pleural or pericardial effusion. There are cholecystectomy clips. Signif icant improvement of bilateral reticulonodular densities with a few residual parenchymal nodules ayde uring 3 mm or less, likely resolving pneumonia. No endobronchial lesions. No pneumothorax. No acute o sseous abnormality. IMPRESSION: 1. Significant improvement in number of miliary nodules as well as scattered reticulonodular densitie s in both lungs, most likely resolving infection. Reviewed, dictated and finalized at location B. IMPRESSION: 1. Significant improvement in number of miliary nodules as well as scattered re ticulonodular densities in both lungs, most likely resolving infection.
== END 2020-12-21 10:58 | disposition home or self-care (01) ==
LOC: ANHIMG 10:59
PROVIDERS: PCP Internal Medicine; Visit Provider Internal Medicine Pulmonary Disease
DX: J18.9 Pneumonia, unspecified organism (principal)
CPT/HCPCS: 71250

== ENCOUNTER 2021-03-10 12:55 | Outpatient (CLI) | payer OTHER, SELFPAY ==
[2021-03-10 13:42] LABS: Basophils Percent Auto 0.4 % (0.2-1.2); Eosinophils Absolute Auto 0.2 K/mm3 (0-0.3); Eosinophils Percent Auto 2.9 % (0-4.4); Hematocrit 46.8 % (37.0-47.0); Hemoglobin 14.9 g/dL (12.0-15.0); Immature Granulocyte Absolute 0.02 K/mm3 (0.00-0.031); Immature Granulocyte Percent A 0.3 % (0-0.5); Lymphocytes Absolute Auto 1.34 K/mm3 (0.9-3.2); Lymphocytes Percent Auto 16.9 % (18.3-44.2); Mean Corpuscular HGB Conc 31.8 g/dl (32-36); Mean Corpuscular Hemoglobin 29.9 pg (26-34); Mean Platelet Volume 10.5 fl (7.4-10.4); Monocytes Absolute Auto 0.5 K/mm3 (0.1-0.6); Monocytes Percent Auto 6.8 % (2.6-8.5); Neutrophils Absolute Auto 5.8 K/mm3 (1.3-6.7); Neutrophils Percent Auto 72.7 % (45.5-73.1); Platelet Count Result 222 k/mm3 (150-375); Red Blood Count 4.98 M/mm3 (4.2-5.4); Red Cell Distribution Width 13.1 % (11.5-14.5)
[2021-03-10 14:10] LABS: Hemoglobin A1C 7.6 % (<5.7)
[2021-03-10 14:19] LABS: Alanine Aminotransferase 22 U/L (4-35); Albumin Level 4.3 g/dL (3.5-5.1); Alkaline Phosphatase 99 U/L (38-126); Anion Gap 5 mmol/L (8-16); Aspartate Amino Transferase 26 U/L (14-36); Bilirubin,Total 0.2 mg/dL (0.2-1.3); Blood Urea Nitrogen 12 mg/dL (7-17); Calcium 8.9 mg/dL (8.4-10.2); Carbon Dioxide 34 mmol/L (22-30); Chloride 100 mmol/L (98-107); Estimated Glomerular Filt Rate > 60; Glucose 219 mg/dL (65-110); Potassium 4.7 mmol/L (3.4-5.0); Sodium 139 mmol/L (137-145)
[2021-03-10 14:58] LABS: Creatinine Urine 26.6 mg/dL
[2021-03-10 16:43] LABS: MALB Creatinine Ratio < 22.6 mg/g (0-30); Microalbumin Urine Random < 6.0 mg/L (0-16.7)
== END 2021-03-10 12:56 | disposition home or self-care (01) ==
LOC: ANHIMG 12:57
PROVIDERS: PCP Internal Medicine; Visit Provider Internal Medicine
DX: E11.8 Type 2 diabetes mellitus with unspecified complications (principal); J44.9 Chronic obstructive pulmonary disease, unspecified; I10 Essential (primary) hypertension
CPT/HCPCS: 36415; 80053; 82043; 83036; 85025

== ENCOUNTER 2021-03-14 11:02 | Outpatient (CLI) | payer OTHER, SELFPAY ==
--- NOTE | ~2021-03-14 | XR_ITS ---
XR hand RT min 3V DATE: 03/14/2021 11:15 INDICATION: Osteoarthritis, pain TECHNIQUE: 3 views COMPARISON: 12/26/2016 right hand FINDINGS: No fracture or dislocation is detected. No periosteal reaction or bone destruction or chond rocalcinosis. No erosive change is noted. There is periarticular osteoarthritis, involving particularly the first carpometacarpal joint and mul tiple interphalangeal joints, with mild involvement of the first metacarpophalangeal joint. IMPRESSION: Polyarticular osteoarthritis Reviewed, dictated and finalized at location A.
== END 2021-03-14 11:03 | disposition home or self-care (01) ==
LOC: ANHIMG 11:05
PROVIDERS: PCP Internal Medicine; Visit Provider Internal Medicine
DX: M19.041 Primary osteoarthritis, right hand (principal)
CPT/HCPCS: 73130

== ENCOUNTER 2021-04-28 07:41 | Outpatient (CLI) | payer OTHER, SELFPAY ==
--- NOTE | 2021-05-17 14:56 | WPDSLEEPSTUD ---
Sleep Study Date of Study: 04/28/21 <Kyra Pastrana DO - Last Filed: 05/17/21 16:21> Ordering Provider: Ishan James MD <Kyra Pastrana DO - Last Filed: 05/17/21 16:21> Interpreting Physician: Kyra Pastrana DO <Kyra Pastrana DO - Last Filed: 05/17/21 16:21> Sleep Study Type: Split Polysomnogram <Kyra Pastrana DO - Last Filed: 05/17/21 16:21> Height: 1.52 m <Kyra Pastrana DO - Last Filed: 05/17/21 16:21> Weight: 172 g <Kyra Pastrana DO - Last Filed: 05/17/21 16:21> Body Mass Index: 0.1 <Kyra Pastrana DO - Last Filed: 05/17/21 16:21> Neck Circumference (inches): 14 <Kyra Pastrana DO - Last Filed: 05/17/21 16:21> [place]: 6 <Kyra Pastrana DO - Last Filed: 05/17/21 16:21> Reason for Sleep Study The patient has emphysema with nocturnal hypoxemia. She had a PSG done on 12/01/2020 that showed an AHI of 0.8. She had no supine REM. She did spend 125.2 minutes with an oxygen saturation less than 88%. Her oxygen levels normalized whn 1 lpm of O2 was added. It was recommended that she repeat the sleep study with a hypnotic. <Kyra Pastrana DO - Last Filed: 05/17/21 16:21> Sleep History Sophia Padilla is a 65 year old female with loud snoring and constant fatigue. This is been going on for years. She has a difficult time falling asleep, she wakes up throughout the night and she always has daytime sleepiness. She occasionally awakens from sleep feeling short of breath. She rarely awakens at night with heartburn, belching or coughing. She constantly snores and is constantly loud enough that others complain about it. She constantly has trouble sleeping with a cold. She does not wake up gasping for breath at night. She occasionally has breathing problems at night observed by others. She occasionally sweats excessively at night and notices her heart pounding or beating irregularly at night. She frequently falls asleep during the day, occasionally falls asleep involuntarily but never falls asleep while driving. She does not have loss of muscle tone with strong emotion. She does not have daytime difficulties due to her excessive sleepiness. She does not feel paralyzed on waking or falling asleep. She rarely has vivid dream like scenes upon awakening or falling asleep. She is not afraid to go to sleep. She occasionally has nightmares. She frequently remembers her dreams. She constantly has racing thoughts. She frequently feels sad or depressed. She constantly has anxiety. She frequently has muscular tension. She frequently notices parts of her body jerking and she frequently kicks at night. She occasionally has crawling and aching feelings in her legs. She frequently has leg pain at night. She does not have morning jaw pain and does not grind her teeth during sleep. She constantly is bothered by pain during the day, constantly awakened by pain at night, constantly wakes up feeling stiff in the morning with sore achy muscles and pain in the neck and spine. She has fatigue, depression, headaches, palpitations, and insomnia. Normal bedtime is 9:00 p.m., taking a few hours to fall asleep, typically waking 3-4 times at night. While awake she stays in bed, thinks about different aspects of her life. She tries to get back to sleep. It takes usually a 1/2 hour. She is on disability. She takes naps in the afternoon or evening. She may feel refreshed after short 10-15 minute nap. She is usually drowsy in the morning for 3 hours or longer. She feels better in the afternoon compared to other times of day. Habits: She is a former smoker. She drinks caffeine 6 servings a day. No alcohol or recreational drugs. <Kyra Pastrana DO - Last Filed: 05/17/21 16:21> [facility] Past Medical History Medical History: Medical History Anxiety and depression
== END 2021-04-29 07:17 | disposition home or self-care (01) ==
LOC: ANHCSM 07:42
PROVIDERS: PCP Internal Medicine; Visit Provider Internal Medicine Pulmonary Disease
DX: G47.10 Hypersomnia, unspecified (principal); G47.33 Obstructive sleep apnea (adult) (pediatric)
CPT/HCPCS: 95811

== ENCOUNTER 2021-06-14 11:28 | Outpatient (CLI) | payer OTHER, SELFPAY ==
[2021-06-14 12:00] LABS: Alanine Aminotransferase 26 U/L (4-35); Albumin Level 4.6 g/dL (3.5-5.1); Alkaline Phosphatase 82 U/L (38-126); Anion Gap 6 mmol/L (8-16); Aspartate Amino Transferase 31 U/L (14-36); Bilirubin,Total 0.4 mg/dL (0.2-1.3); Blood Urea Nitrogen 10 mg/dL (7-17); Calcium 9.1 mg/dL (8.4-10.2); Carbon Dioxide 30 mmol/L (22-30); Chloride 101 mmol/L (98-107); Estimated Glomerular Filt Rate > 60; Glucose 119 mg/dL (65-110); Potassium 4.4 mmol/L (3.4-5.0); Sodium 137 mmol/L (137-145)
[2021-06-14 12:11] LABS: Hemoglobin A1C 6.8 % (<5.7)
[2021-06-14 12:31] LABS: Thyroid Stimulating Hormone 0.412 uIU/mL (0.465-4.680)
[2021-06-14 12:32] LABS: Microalbumin Urine Random 7.8 mg/L (0-16.7)
== END 2021-06-14 11:29 | disposition home or self-care (01) ==
LOC: ANHLAB 11:32
PROVIDERS: PCP Internal Medicine; Visit Provider Internal Medicine
DX: E11.8 Type 2 diabetes mellitus with unspecified complications (principal); G47.39 Other sleep apnea; I10 Essential (primary) hypertension; J43.9 Emphysema, unspecified; J44.9 Chronic obstructive pulmonary disease, unspecified; Z23 Encounter for immunization
CPT/HCPCS: 36415; 80053; 82043; 83036; 84443

== ENCOUNTER 2021-07-20 00:59 | Day surgery (SDC) | payer OTHER, SELFPAY ==
[2021-07-14 11:52] VITALS: BMI 33.3
--- NOTE | 2021-07-14 12:05 | PC.NURSE ---
Report to the Outpatient Waiting Room, entrance under the green pavilion located off [facility], at time 0600 on date 07/20/21. OR Time: 0730. - You will be asked a series of questions to screen for COVID 19 for your protection. - A mask is required within the hospital. - No visitors are allowed at this time. Preoperative COVID Testing Requirements: No COVID Test needed if: (proof is required; if not received patient will have Rapid Test prior to entry) - Patient has received COVID Vaccine at least 14 days prior to procedure date or - Patient has positive COVID test result within last 90 days of surgery date. COVID Test needed if above criteria is not met Patients may have clear liquids (water, carbonated beverages, clear teas, apple juice) until 3 hours prior to surgery with a maximum of 20 ounces. - No food from midnight until time of surgery Take the following medications with a SIP of water the morning of surgery: DULOXETINE Medications to discontinue per physician: VITAMINS/SUPPLEMENTS Date to take last dose: 07/16/21 Please no make-up, nail turkmen, hairspray, perfume, deodorant, or body powder the day of surgery. No jewelry (including any body piercings) or valuables the day of surgery, leave them at home. Please take a shower or bath the night before, or the morning of, surgery with an antibacterial soap. Wear comfortable, loose fitting clothing. - Jewelry must be removed prior to entering the operating room. Rings and piercings that are not removed may be cut off. - The hospital will not accept responsibility for valuables. - Please leave all valuables, including medications, at home the day of surgery. If you are going home after surgery, a licensed non cdl driver must drive you home. - NO public transportation without another adult. - We recommend that an adult stay with you for 24 hours following discharge. - We also recommend that you do not drive, make important decision, drink alcoholic beverages, or take any drugs that were not prescribed by your health care provider for at least 24 hours after your discharge time. Follow any additional instructions given to you from your surgeon. Telephone instructions given to LEANNE BIRD and asked if any additional questions and then verbalized understanding. Patient advised to call surgeon office or pre surgery nurse liaison [phone] if any additional questions.
--- NOTE | 2021-07-15 14:15 | PM.HPGS ---
History of Present Illness History of Present Illness Consent: Risks, benefits, and alternatives have been discussed and questions answered. Patient agrees to proceed with procedure. Chief complaint: right first carpometacarpal joint OA Narrative: Sophia Padilla is a 65 year old female With severe osteoarthritis of the right hand particularly the 1st carpometacarpal joint. She was evaluated in May. X-rays going back to 2014 have been reviewed showing progression of her disease the triscaphe joint seems to be minimally involved. The basal joint was injected with Betamethasone after her 1st visit and once again less than a month later. She has tried Voltaren gel gel. She uses a wrist based thumb spica support. All of these interventions have failed to give her ongoing relief. She is consented to right trapezium resection arthroplasty and stabilization with an Arthrex InternalBbrace under general anesthesia. We have discussed this treatment and other options with her. She is anxious to proceed. She understands possible complications include infection, failure of the reconstructive construct, persistent pain, regional pain from other causes, anesthetic risks, thrombophlebitis and others. Review of Systems Review of Systems: All systems reviewed & are unremarkable except as noted in HPI and below Respiratory: Respiratory: Reports dyspnea on exertion Comments: Uses home oxygen. Musculoskeletal: Musculoskeletal: Reports myalgias and Reports joint swelling PMFSH Past Medical History Medical History Anxiety and depression Benign essential hypertension Biliary dyskinesia Chronic low back pain Chronic obstructive pulmonary disease Chronic pain GERD (gastroesophageal reflux disease) Mixed hyperlipidemia Pancreatitis Rheumatoid arthritis of unspecified site with involvement of other organs and systems Tobacco use Type 2 diabetes mellitus with complication Surgical History Surgical History H/O tubal ligation History of appendectomy Open appendectomy for ruptured appendicitis History of arthroplasty of finger of right hand History of tonsillectomy Hx of cholecystectomy S/P thoracentesis On the left Total knee replacement status Left Family History Family History Grandparent Diabetes mellitus Father Lung cancer Mother Heart attack Social History Social History Social History: The patient has a significant other. the patient would like her son to be the durable power ec teacher if necessary. The patient desires to be a full code. She has 3 sons. The patient is on disability. She has smoked a pack a cigarettes a day for 40 years. She may be drinks twice a year. She does use marijuana about twice a week for her pain. Smoking packs per day: 1 Smoking cigarettes per day: 20.0 Years smoked: 40 Smoking pack-years: 40.00 Smoking status: Current some day smoker Tobacco type: cigarettes Second hand tobacco smoke exposure: Yes Smoking end date: 10/22/20 Alcohol intake: never Alcohol use details: Rare alcohol use - Twice per year. Denies binge drinking. Substance use: current Substance use type: marijuana Other substance usage details: occasional marijuana use Last use: 1 week ago Additional living arrangements comments: Lives with her boyfriend. Additional occupation/education comments: On disability. Gender identity (if verbalized by the patient): Female Spiritual care concerns: No Agree to blood products: Yes Meds Home Medications and Allergies Home Medications Medication Instructions Recorded Confirmed Type aspirin [Adult Low Dose Aspirin] 81 mg PO DAILY 07/21/19 07/14/21 History budesonide 160 mcg-glycopyr 9 2 inh INHALATION BID #10.7 g
[2021-07-20] VITALS (9 sets, daily range): BP systolic 93–150; BP diastolic 68–83; PULSE 70–87; RESP 14–20; TEMP 36.2–36.6; O2SAT 91–99
--- NOTE | ~2021-07-20 | XR_ITS ---
EXAMINATION: XR surgery orthopedic DATE: 07/20/2021 08:57 INDICATION: Right thumb arthroplasty TECHNIQUE: 4 fluoroscopic images of the right hand were obtained during procedure performed by Dr. Freeman. Radiologist was not present for the imaging or procedure. The amount of fluoroscopy time used du ring this procedure was 0.2 minutes. COMPARISON: None. FINDINGS: Postoperative changes consistent with a first carpal metacarpal suspension arthroplasty. The trapeziu m has been resected, initially with lucent gas at the operative bed and subsequently this is been romeo led with soft tissue density. Lucent tract at the base of the first metacarpal. No fracture. IMPRESSION: 1. Fluoroscopy utilized during first carpal metacarpal suspension arthroplasty. See procedure note fo r further detail. Reviewed, dictated and finalized at location A. E MAKER IMPRESSION: 1. Fluoroscopy utilized during first carpal metacarpal suspension arthroplasty. See procedure note for further detail.
[2021-07-20] MEDS: ACETAMINOPHEN 500 MG TABLET 1000 MG PO (06:58)
[2021-07-20] MEDS: LACTATED RINGERS 1,000 ML 30 ML IV CONT ×2 (07:00→10:01)
[2021-07-20 07:12] LABS: Glucose Point of Care 129 mg/dl (65-105)
--- NOTE | 2021-07-20 07:12 | WPDANESEPPF ---
Anes - Initial Pre Proc Eval Procedure: Operation Date: 07/20/21 07:30 Proposed Procedures p Right Trapezium Resection Arthroplasty with Arthrex Internal Brace - Mina Phillips MD Date/Time: 07/20/21 07:12 Surgeon: Mina Phillips MD Pre Op Diagnosis: right first carpometacarpal joint OA Patient Data Age: 65 Gender: F Height: 1.52 m Weight: 77.56 kg Allergies Allergy/AdvReac Type Severity Reaction Status Date / Time thiopental Allergy Intermediate N/V AND Verified 07/14/21 11:49 RASH WITH SODIUM PENTOTHAL Home Medications Medication Instructions Recorded Confirmed Type aspirin [Adult Low Dose Aspirin] 81 mg PO DAILY 07/21/19 07/14/21 History budesonide 160 mcg-glycopyr 9 2 inh INHALATION BID #10.7 g 10/26/20 07/14/21 Rx mcg-formot 4.8 mcg/actuation HFA inhaler nystatin 1 applic TOPICAL BID PRN 10/26/20 07/14/21 History albuterol sulfate 2 puff INHALATION QID PRN #6.7 g 10/30/20 07/14/21 Rx gabapentin 300 mg capsule 300 mg PO QHS #90 cap 01/17/21 07/14/21 Rx glimepiride 2 mg tablet 2 mg PO DAILY #90 tablet 03/11/21 07/14/21 Rx trazodone 50 mg tablet 50 mg PO HS #90 tablet 03/21/21 07/14/21 Rx duloxetine 30 mg capsule,delayed 30 mg PO BID #180 cap 05/16/21 07/14/21 Rx release ertugliflozin 15 mg tablet 15 mg PO DAILY #90 tablet 06/20/21 07/14/21 Rx vitamin B complex 1 tablet PO DAILY 06/20/21 07/14/21 History metformin 1,000 mg tablet 1,000 mg PO BID #180 tablet 06/23/21 07/14/21 Rx atorvastatin 40 mg tablet 40 mg PO DAILY #90 tablet 07/14/21 07/14/21 Rx Laboratory Tests 07/20/21 07:09 POC Capillary Glucose Pending Patient hx anesthesia problems: none Family hx anesthesia problems: none Results Review: All pre-operative results and documents have been reviewed as part of the pre-operative evaluation. [facility] Past Medical History Medical History Anxiety and depression Benign essential hypertension Biliary dyskinesia Chronic low back pain Chronic obstructive pulmonary disease Chronic pain GERD (gastroesophageal reflux disease) Mixed hyperlipidemia Pancreatitis Rheumatoid arthritis of unspecified site with involvement of other organs and systems Tobacco use Type 2 diabetes mellitus with complication Surgical History Surgical History H/O tubal ligation History of appendectomy Open appendectomy for ruptured appendicitis History of arthroplasty of finger of right hand History of tonsillectomy Hx of cholecystectomy S/P thoracentesis On the left Total knee replacement status Left Family History Family History Grandparent Diabetes mellitus Father Lung cancer Mother Heart attack Social History Social History Social History: The patient has a significant other. the patient would like her son to be the durable power ip attorney if necessary. The patient desires to be a full code. She has 3 sons. The patient is on disability. She has smoked a pack a cigarettes a day for 40 years. She may be drinks twice a year. She does use marijuana about twice a week for her pain. Smoking packs per day: 1 Smoking cigarettes per day: 20.0 Years smoked: 40 Smoking pack-years: 40.00 Smoking status: Current some day smoker Tobacco type: cigarettes Second hand tobacco smoke exposure: Yes Smoking end date: 10/22/20 Alcohol intake: never Alcohol use details: Rare alcohol use - Twice per year. Denies binge drinking. Substance use: current Substance use type: marijuana Other substance usage details: occasional marijuana use Last use: 1 week ago Living arrangements: with family Additional living arrangements comments: Lives with her boyfriend. Additional occupation/education comments: On disability. [place]
--- NOTE | 2021-07-20 07:19 | WPDHPUPDATE1 ---
History and Physical Update Update Date/Time: 07/20/21 07:19 History and Physical has been reviewed, including an updated exam of the patient. There are NO changes in the patient's condition. Risks, benefits, and alternatives have been discussed and questions answered. Patient agrees to proceed with procedure.
[2021-07-20] MEDS: ceFAZolin 2 GM/D5W 50 ML 2 GM/50 ML BAG IVPB (07:30)
[2021-07-20] MEDS: fentaNYL CITRATE INJ (*CRX) 100 MCG/2 ML VIAL 25 MCG IV PUSH ×8 (09:19→10:12)
--- NOTE | 2021-07-20 09:32 | W.PM.PROC2 ---
Procedure Note - Detailed Date of Procedure 07/21/21 Pre-op Diagnosis right first carpometacarpal joint OA Post-op Diagnosis same Procedure Performed Right trapezium resection arthroplasty with Arthrex internal brace Surgeon Mina Phillips MD Radiotelegraphist [place] Anesthesia general Indications Severe painful osteoarthritis failing conservative treatment Description of Procedure The right basal joint area was marked on the patient in the holding area. She was taken to the operating room placed supine on the operating table. Time-out was held and confirmed. She was given general anesthesia and the extremity was prepped and draped in usual fashion. The site was marked for the incision in this area locally infiltrated with 1% lidocaine with epinephrine. The tourniquet was inflated to 250 mmHg. The incision was made as marked and care was taken to identified the cutaneous nerves in this region and retract them out of the way. One was held with a vessel loop which penetrated through the skin. The interspace between the extensor pollicis brevis and abductor pollicis longus was incised with a 15 blade centered over the carpometacarpal joint. The base of the metacarpal was exposed as needed for eventual placement of the 1st metacarpal suture lock. The trapezium was dissected around its periphery with a 15 blade and small elevators. The trapezium was divided with the mallet and osteotome. The trapezium was resected further with the rongeur were confirming adequate excision. The appropriate site through the radial facet at the base of the 2nd metacarpal was identified with the image intensifier and overlying C-wire. The site was then drilled for placement of the C-wire. The site was over drilled with the a Arthrex drill guide. Those 2 items were removed and the anchor lock placed successfully there. The appropriate site on the base of 1st metacarpal was also drilled with the guidewire. The drill was passed over the guide and the suture lock fenestration made. The anchor lock was placed over the suture tape and fixed appropriately by placing the anchor through the cortex. The tape was cut. The site was irrigated the capsule was repaired with interrupted 4-0 Vicryl suture. The tourniquet was released and the skin was closed with interrupted 3-0 Monocryl and glue. A soft bandage with thumb spica splint was applied and the patient was taken to the recovery room stable condition. About 80 milliliter of 0.5% Marcaine were placed in the subcutaneous tissue prior to application of the bandage. Implants Arthrex internalBrace Estimated Blood Loss 3 Tourniquet Time 45 Drains No Packing No Pathology none sent Complications No immediate complications Condition stable Disposition PACU
[2021-07-20] MEDS: oxyCODONE HCL (*CRX) 5 MG TAB IR PO (10:39)
== END 2021-07-20 11:39 | disposition home or self-care (01) ==
PROVIDERS: PCP Internal Medicine; Visit Provider Plastic Surgery
PROC: (CPT 25447; principal; 2021-07-20 07:30)
DX: M18.11 Unilateral primary osteoarthritis of first carpometacarpal joint, right hand (principal); I10 Essential (primary) hypertension; J44.9 Chronic obstructive pulmonary disease, unspecified; E78.2 Mixed hyperlipidemia; K21.9 Gastro-esophageal reflux disease without esophagitis; E11.9 Type 2 diabetes mellitus without complications; F41.8 Other specified anxiety disorders; M54.9 Dorsalgia, unspecified; G89.29 Other chronic pain; M05.60 Rheumatoid arthritis of unspecified site with involvement of other organs and systems; Z87.891 Personal history of nicotine dependence; F12.90 Cannabis use, unspecified, uncomplicated; E66.9 Obesity, unspecified; Z68.32 Body mass index [BMI] 32.0-32.9, adult; Z79.82 Long term (current) use of aspirin; Z79.51 Long term (current) use of inhaled steroids; Z79.84 Long term (current) use of oral hypoglycemic drugs
CPT/HCPCS: 25447; 82948; A9270; C1713; J0690; J1100; J2250; J2270; J2405; J2704; J3010; J7120

== ENCOUNTER 2021-09-20 08:13 | Outpatient (CLI) | payer OTHER, SELFPAY ==
[2021-09-20 08:57] LABS: Alanine Aminotransferase 211 U/L (4-35); Albumin Level 4.5 g/dL (3.5-5.1); Alkaline Phosphatase 236 U/L (38-126); Anion Gap 6 mmol/L (8-16); Aspartate Amino Transferase 171 U/L (14-36); Bilirubin,Total 0.5 mg/dL (0.2-1.3); Blood Urea Nitrogen 10 mg/dL (7-17); Calcium 8.7 mg/dL (8.4-10.2); Carbon Dioxide 32 mmol/L (22-30); Chloride 100 mmol/L (98-107); Cholesterol 120 mg/dL (0-200); Estimated Glomerular Filt Rate > 60; Glucose 187 mg/dL (65-110); HDL Direct 57 mg/dL; Sodium 138 mmol/L (137-145); Triglycerides 128 mg/dL (<150)
[2021-09-20 08:59] LABS: Hemoglobin A1C 6.7 % (<5.7)
[2021-09-20 09:15] LABS: LDL Cholesterol Direct < 30 mg/dL
[2021-09-20 09:20] LABS: Free T4 Free Thyroxine 1.34 ng/mL (0.78-2.19); Vitamin D 25 Hydroxy 21.7 ng/mL
[2021-09-20 09:23] LABS: Creatinine Urine 126.3 mg/dL
[2021-09-20 09:28] LABS: MALB Creatinine Ratio 7.9 mg/g (0-30)
== END 2021-09-20 08:14 | disposition home or self-care (01) ==
PROVIDERS: PCP Internal Medicine; Visit Provider Internal Medicine
DX: E11.8 Type 2 diabetes mellitus with unspecified complications (principal); D75.1 Secondary polycythemia; E55.9 Vitamin D deficiency, unspecified; F32.9 Major depressive disorder, single episode, unspecified; F41.9 Anxiety disorder, unspecified; I10 Essential (primary) hypertension; Z78.0 Asymptomatic menopausal state; E78.2 Mixed hyperlipidemia
CPT/HCPCS: 80053; 80061; 82043; 82306; 83036; 84439; 84443; 87804

== ENCOUNTER 2021-09-21 11:43 | Outpatient (CLI) | payer OTHER, SELFPAY ==
--- NOTE | ~2021-09-21 | CT_ITS ---
EXAMINATION: CT abdomen pelvis w con INDICATION: Unspecified abdominal pain TECHNIQUE: Computed tomographic images of the abdomen and pelvis were obtained after the administrati on of 100 cc of Omnipaque 350 intravenous contrast. The dose-length product (DLP) was 765.63 mGy-cm. Automated exposure control and iterative reconstruction technique were employed. COMPARISON: 07/21/2019 FINDINGS: The lung bases are clear. The heart size is normal. The gallbladder is surgically absent. T here is mild enlargement of the common bile duct and central intrahepatic ducts which is likely due t o post cholecystectomy state. The liver, pancreas, and adrenal glands are normal. The kidneys are unr emarkable. There is calcified atherosclerosis of the aorta and many of the other arteries. No patholo gically enlarged abdominal or pelvic lymph nodes are identified. There is moderate lumbar spondylosis . A calcified uterine fibroid is noted. IMPRESSION: 1. No CT correlate for the patient's symptoms. Reviewed, dictated and finalized at location B.
== END 2021-09-21 11:44 | disposition home or self-care (01) ==
LOC: ANHIMG 11:46
PROVIDERS: PCP Internal Medicine; Visit Provider Internal Medicine
DX: R10.9 Unspecified abdominal pain (principal)
CPT/HCPCS: 74177; Q9967

== ENCOUNTER 2021-10-03 00:47 | Day surgery (SDC) | payer OTHER, SELFPAY ==
[2021-09-21 13:35] VITALS: BMI 33.5
[2021-10-03 12:55] VITALS: BP 123/88; PULSE 81; RESP 17; TEMP 36.4; O2SAT 97; BMI 32.2
[2021-10-03] MEDS: LACTATED RINGERS 1,000 ML 150 ML IV CONT (13:07)
[2021-10-03 13:09] LABS: Glucose Point of Care 162 mg/dl (65-105)
--- NOTE | 2021-10-03 13:16 | WPDANESEPPF ---
Anes - Initial Pre Proc Eval Procedure: Operation Date: 10/03/21 14:00 Proposed Procedures p Screening Colonoscopy - Adrien Gant MD Date/Time: 10/03/21 13:16 Surgeon: Adrien Gant MD Pre Op Diagnosis: hx of colon polyps Patient Data Age: 65 Gender: F Height: 1.52 m Weight: 74.8 kg Last Vital Signs Temp 97.6 F 10/03/21 12:55 Pulse 81 10/03/21 12:55 Resp 17 10/03/21 12:55 BP 123/88 10/03/21 12:55 Pulse Ox 97 10/03/21 12:55 Allergies Allergy/AdvReac Type Severity Reaction Status Date / Time thiopental Allergy Intermediate N/V AND Verified 10/03/21 12:54 RASH WITH SODIUM PENTOTHAL Home Medications Medication Instructions Recorded Confirmed Type budesonide 160 mcg-glycopyr 9 2 inh INHALATION BID #10.7 g 10/26/20 10/03/21 Rx mcg-formot 4.8 mcg/actuation HFA inhaler nystatin 1 applic TOPICAL BID PRN 10/26/20 10/03/21 History albuterol sulfate 2 puff INHALATION QID PRN #6.7 g 10/30/20 10/03/21 Rx duloxetine 30 mg capsule,delayed 30 mg PO BID #180 cap 05/16/21 10/03/21 Rx release ertugliflozin 15 mg tablet 15 mg PO DAILY #90 tablet 06/20/21 10/03/21 Rx vitamin B complex 1 tablet PO DAILY 06/20/21 10/03/21 History atorvastatin 40 mg tablet 40 mg PO DAILY #90 tablet 07/14/21 10/03/21 Rx gabapentin 300 mg capsule 300 mg PO QHS #90 cap 07/28/21 10/03/21 Rx trazodone 50 mg tablet 50 mg PO HS #90 tablet 09/06/21 10/03/21 Rx ondansetron 4 mg disintegrating 4 mg PO Q8H PRN #14 tablet 09/20/21 10/03/21 Rx tablet Laboratory Tests 10/03/21 13:06 POC Capillary Glucose 162 mg/dl H mg/dl (65-105) Patient hx anesthesia problems: none Family hx anesthesia problems: none Results Review: All pre-operative results and documents have been reviewed as part of the pre-operative evaluation. [facility] Past Medical History Medical History Anxiety and depression Benign essential hypertension Biliary dyskinesia Chronic low back pain Chronic obstructive pulmonary disease Chronic pain GERD (gastroesophageal reflux disease) Mixed hyperlipidemia Pancreatitis Rheumatoid arthritis of unspecified site with involvement of other organs and systems Tobacco use Type 2 diabetes mellitus with complication Surgical History Surgical History H/O tubal ligation History of appendectomy Open appendectomy for ruptured appendicitis History of arthroplasty of finger of right hand History of tonsillectomy Hx of cholecystectomy S/P thoracentesis On the left Total knee replacement status Left Family History Family History Grandparent Diabetes mellitus Father Lung cancer Mother Heart attack Social History Social History Social History: The patient has a significant other. the patient would like her son to be the durable power tax attorney if necessary. The patient desires to be a full code. She has 3 sons. The patient is on disability. She has smoked a pack a cigarettes a day for 40 years. She may be drinks twice a year. She does use marijuana about twice a week for her pain. Smoking packs per day: 1 Smoking cigarettes per day: 20.0 Years smoked: 40 Smoking pack-years: 40.00 Smoking status: Current every day smoker Tobacco type: cigarettes Second hand tobacco smoke exposure: Yes Smoking end date: 10/22/20 Alcohol intake: never Alcohol use details: Rare alcohol use - Twice per year. Denies binge drinking. Substance use: current Substance use type: marijuana Other substance usage details: occasional marijuana use Last use: 1 week ago Living arrangements: alone Additional living arrangements comments: Lives with her boyfriend. Additional occupation/education comments: On disability. Gender identity (if verbal
--- NOTE | 2021-10-03 13:40 | WPDGICN ---
Assessment and Plan Assessment and plan (1) Colon cancer screening: Code(s): Z12.11 - Encounter for screening for malignant neoplasm of colon Status: Acute Assessment and Plan: Colonoscopy with possible biopsy or polypectomy or cautery or injection of substances. (2) Personal history of colonic polyps: Code(s): Z86.010 - Personal history of colonic polyps Status: Acute GI Consult Note Consult date/time: 10/03/21 13:40 HPI: Sophia Padilla is a 65 year old female referred for colon cancer screening. She 3 tubular adenomas removed about 4 years ago. Review of Systems Review of Systems: All systems reviewed & are unremarkable except as noted in HPI and below PMFSH Past Medical History Medical History Anxiety and depression Benign essential hypertension Biliary dyskinesia Chronic low back pain Chronic obstructive pulmonary disease Chronic pain GERD (gastroesophageal reflux disease) Mixed hyperlipidemia Pancreatitis Rheumatoid arthritis of unspecified site with involvement of other organs and systems Tobacco use Type 2 diabetes mellitus with complication Surgical History Surgical History H/O tubal ligation History of appendectomy Open appendectomy for ruptured appendicitis History of arthroplasty of finger of right hand History of tonsillectomy Hx of cholecystectomy S/P thoracentesis On the left Total knee replacement status Left Family History Family History Grandparent Diabetes mellitus Father Lung cancer Mother Heart attack Social History Social History Social History: The patient has a significant other. the patient would like her son to be the durable power patent attorney if necessary. The patient desires to be a full code. She has 3 sons. The patient is on disability. She has smoked a pack a cigarettes a day for 40 years. She may be drinks twice a year. She does use marijuana about twice a week for her pain. Smoking packs per day: 1 Smoking cigarettes per day: 20.0 Years smoked: 40 Smoking pack-years: 40.00 Smoking status: Current every day smoker Tobacco type: cigarettes Second hand tobacco smoke exposure: Yes Smoking end date: 10/22/20 Alcohol intake: never Alcohol use details: Rare alcohol use - Twice per year. Denies binge drinking. Substance use: current Substance use type: marijuana Other substance usage details: occasional marijuana use Last use: 1 week ago Living arrangements: alone Additional living arrangements comments: Lives with her boyfriend. Additional occupation/education comments: On disability. Gender identity (if verbalized by the patient): Female Sexual Orientation (if Verbalized by the Patient): Straight or Heterosexual Spiritual care concerns: No Agree to blood products: Yes Meds Home Medications and Allergies Home Medications Medication Instructions Recorded Confirmed Type budesonide 160 mcg-glycopyr 9 2 inh INHALATION BID #10.7 g 10/26/20 10/03/21 Rx mcg-formot 4.8 mcg/actuation HFA inhaler nystatin 1 applic TOPICAL BID PRN 10/26/20 10/03/21 History albuterol sulfate 2 puff INHALATION QID PRN #6.7 g 10/30/20 10/03/21 Rx duloxetine 30 mg capsule,delayed 30 mg PO BID #180 cap 05/16/21 10/03/21 Rx release ertugliflozin 15 mg tablet 15 mg PO DAILY #90 tablet 06/20/21 10/03/21 Rx vitamin B complex 1 tablet PO DAILY 06/20/21 10/03/21 History atorvastatin 40 mg tablet 40 mg PO DAILY #90 tablet 07/14/21 10/03/21 Rx gabapentin 300 mg capsule 300 mg PO QHS #90 cap 07/28/21 10/03/21 Rx trazodone 50 mg tablet 50 mg PO HS #90 tablet 09/06/21 10/03/21 Rx ondansetron 4 mg disintegrating 4 mg PO Q8H PRN #14 tablet 09/20/21 10/03/21 Rx tablet Allergies Allergy/Adv
[2021-10-03 14:11] VITALS: BP 107/43; PULSE 68; RESP 17; O2SAT 98
[2021-10-03 14:21] VITALS: BP 117/66; PULSE 68; RESP 17; O2SAT 100
[2021-10-03 14:29] VITALS: BP 137/88; PULSE 75; RESP 17; O2SAT 98
== END 2021-10-03 14:42 | disposition home or self-care (01) ==
PROVIDERS: PCP Internal Medicine; Visit Provider Internal Medicine Gastroenterology
PROC: 0DJD8ZZ Inspection of Lower Intestinal Tract, Via Natural or Artificial Opening Endoscopic (ICD-10-PCS; CPT 45378; principal; 2021-10-03 14:00)
DX: Z12.11 Encounter for screening for malignant neoplasm of colon (principal); D12.8 Benign neoplasm of rectum; D12.5 Benign neoplasm of sigmoid colon; D12.0 Benign neoplasm of cecum; K57.30 Diverticulosis of large intestine without perforation or abscess without bleeding; I10 Essential (primary) hypertension; E78.2 Mixed hyperlipidemia; M05.60 Rheumatoid arthritis of unspecified site with involvement of other organs and systems; E11.9 Type 2 diabetes mellitus without complications; F41.8 Other specified anxiety disorders; J44.9 Chronic obstructive pulmonary disease, unspecified; G89.29 Other chronic pain; F17.210 Nicotine dependence, cigarettes, uncomplicated; F12.90 Cannabis use, unspecified, uncomplicated; Z79.51 Long term (current) use of inhaled steroids; Z79.84 Long term (current) use of oral hypoglycemic drugs
CPT/HCPCS: 45385; 45380; 82948; 88305; J2704; J7120

== ENCOUNTER 2021-12-09 09:11 | Outpatient (CLI) | payer OTHER, SELFPAY ==
--- NOTE | ~2021-12-09 | CT_ITS ---
EXAMINATION: CT lung screening DATE: 12/09/2021 09:22 INDICATION: Tobacco use TECHNIQUE: Computed tomography (CT) of the chest was performed without intravenous contrast. The dose -length product was 151.58 mGy-cm. Automated exposure control and iterative reconstruction technique were employed. COMPARISON: CT dated 12/21/2020 FINDINGS: Heart size is normal. No significant pleural or pericardial effusion. No thoracic lymphaden opathy. There are cholecystectomy clips. There is atherosclerosis of the aorta and coronary arteries. Heart size normal. There are a few scattered 1-2 mm miliary nodules. No pneumothorax. No endobronchi al lesions. There is subsegmental atelectasis of the right middle lobe. Mild thoracic spondylosis. IMPRESSION: 1. Lung-RADS category 2: Benign appearance or behavior. Continue annual screening with noncontrast lo w-dose chest CT in 12 months. Reviewed, dictated and finalized at location B. IMPRESSION: 1. Lung-RADS category 2: Benign appearance or behavior. Continue annual screeni ng with noncontrast low-dose chest CT in 12 months.
== END 2021-12-09 09:12 | disposition home or self-care (01) ==
LOC: ANHIMG 09:12
PROVIDERS: PCP Internal Medicine; Visit Provider Physician Assistant
DX: Z72.0 Tobacco use (principal)
CPT/HCPCS: 71271

== ENCOUNTER 2022-03-17 13:00 | Outpatient (CLI) | payer OTHER, SELFPAY ==
--- NOTE | ~2022-03-17 | US_ITS ---
EXAMINATION: US venous doppler [facility] DATE: 03/17/2022 13:33 INDICATION: Left lower limb swelling TECHNIQUE: Sher scale images without and with compression and Doppler images of the left lower extrem ity veins were obtained. COMPARISON: None FINDINGS: The left common femoral vein, profunda femoral vein, femoral vein, popliteal vein, peroneal trunk, posterior tibial veins, and greater saphenous vein are patent. IMPRESSION: 1. Patent left lower extremity veins. No evidence of deep venous thrombosis. Reviewed, dictated and finalized at location B.
== END 2022-03-17 13:01 | disposition home or self-care (01) ==
PROVIDERS: PCP Internal Medicine; Visit Provider Internal Medicine Hematology & Oncology
DX: M79.89 Other specified soft tissue disorders (principal)
CPT/HCPCS: 93971

== ENCOUNTER 2022-03-30 09:46 | Outpatient (CLI) | payer OTHER, SELFPAY ==
[2022-03-30 10:11] LABS: Basophils Percent Auto 0.3 % (0.2-1.2); Eosinophils Absolute Auto 0.2 K/mm3 (0-0.3); Eosinophils Percent Auto 2.2 % (0-4.4); Hematocrit 49.5 % (37.0-47.0); Hemoglobin 15.6 g/dL (12.0-15.0); Immature Granulocyte Absolute 0.02 K/mm3 (0.00-0.031); Immature Granulocyte Percent A 0.3 % (0-0.5); Lymphocytes Absolute Auto 1.06 K/mm3 (0.9-3.2); Lymphocytes Percent Auto 14.6 % (18.3-44.2); Mean Corpuscular HGB Conc 31.5 g/dl (32-36); Mean Corpuscular Hemoglobin 30.3 pg (26-34); Mean Corpuscular Volume 96.1 fl (80-100); Mean Platelet Volume 10.1 fl (7.4-10.4); Monocytes Absolute Auto 0.5 K/mm3 (0.1-0.6); Monocytes Percent Auto 7.1 % (2.6-8.5); Neutrophils Absolute Auto 5.5 K/mm3 (1.3-6.7); Neutrophils Percent Auto 75.5 % (45.5-73.1); Platelet Count Result 222 k/mm3 (150-375); Red Blood Count 5.15 M/mm3 (4.2-5.4); Red Cell Distribution Width 12.8 % (11.5-14.5); White Blood Count 7.3 K/mm3 (4.5-10.0)
[2022-03-30 10:15] LABS: Alanine Aminotransferase 22 U/L (6-35); Albumin Level 4.5 g/dL (3.5-5.1); Alkaline Phosphatase 104 U/L (38-126); Anion Gap 9 mmol/L (8-16); Aspartate Amino Transferase 27 U/L (14-36); Bilirubin,Total 0.5 mg/dL (0.2-1.3); Blood Urea Nitrogen 8 mg/dL (7-17); Calcium 8.8 mg/dL (8.4-10.2); Carbon Dioxide 31 mmol/L (22-30); Chloride 98 mmol/L (98-107); Cholesterol 170 mg/dL (0-200); Estimated Glomerular Filt Rate > 60; Glucose 163 mg/dL (65-110); HDL Direct 75 mg/dL; Hemoglobin A1C 7.3 % (<5.7); Potassium 3.9 mmol/L (3.4-5.0); Sodium 138 mmol/L (137-145); Triglycerides 129 mg/dL (<150)
[2022-03-30 10:23] LABS: Iron 99 ug/dL (37-170)
[2022-03-30 10:26] LABS: LDL Cholesterol Direct 66 mg/dL
[2022-03-30 10:33] LABS: Percent Iron Saturation 26 % (20-50)
[2022-03-30 10:53] LABS: Vitamin D 25 Hydroxy 21.5 ng/mL
== END 2022-03-30 09:47 | disposition home or self-care (01) ==
LOC: ANHLAB 09:48
PROVIDERS: PCP Internal Medicine; Visit Provider Internal Medicine
DX: D75.1 Secondary polycythemia (principal); R79.89 Other specified abnormal findings of blood chemistry; I10 Essential (primary) hypertension; E11.8 Type 2 diabetes mellitus with unspecified complications; E78.5 Hyperlipidemia, unspecified; E55.9 Vitamin D deficiency, unspecified
CPT/HCPCS: 36415; 80053; 80061; 82306; 83036; 83540; 83550; 85025

== ENCOUNTER 2022-04-24 07:52 | Outpatient (CLI) | payer OTHER, SELFPAY ==
--- NOTE | ~2022-04-24 | CT_ITS ---
EXAMINATION: CT abdomen pelvis w con DATE: 04/24/2022 08:09 INDICATION: Left lower quadrant abdominal pain. TECHNIQUE: Computed tomography (CT) of the abdomen and pelvis was performed with 100 mL Omnipaque 350 intravenous contrast. Automated exposure control and iterative reconstruction technique were employe d. The dose-length product was 557.21 mGy-cm. COMPARISON: CT abdomen and pelvis 09/21/2021 FINDINGS: The visualized portions of the lung bases are clear without pneumonia or pleural effusion. The heart size is normal. No pericardial effusion. The liver is normal. There are changes of cholecys tectomy. The spleen, pancreas, and adrenal glands are normal. There is cortical thinning of the kidne ys. There is diverticulosis of the colon without evidence of diverticulitis. There are no dilated loo ps of bowel. The appendix is not visualized. There are no pathologically enlarged lymph nodes. There is no free intraperitoneal fluid. There are small calcified fibroids in the uterus. There is severe l ower lumbar spondylosis. IMPRESSION: 1. No specific etiology for the patient's symptoms. Reviewed, dictated and finalized at location A.
== END 2022-04-24 07:53 | disposition home or self-care (01) ==
LOC: ANHIMG 07:53
PROVIDERS: PCP Internal Medicine; Visit Provider Internal Medicine Gastroenterology
DX: K57.92 Diverticulitis of intestine, part unspecified, without perforation or abscess without bleeding (principal)
CPT/HCPCS: 74177; Q9967

== ENCOUNTER 2022-08-21 12:24 | Outpatient (CLI) | payer OTHER, SELFPAY ==
[2022-08-21 13:28] LABS: Alanine Aminotransferase 24 U/L (6-35); Albumin Level 4.4 g/dL (3.5-5.1); Alkaline Phosphatase 92 U/L (38-126); Anion Gap 7 mmol/L (8-16); Aspartate Amino Transferase 27 U/L (14-36); Bilirubin,Total 0.5 mg/dL (0.2-1.3); Blood Urea Nitrogen 11 mg/dL (7-17); Calcium 8.7 mg/dL (8.4-10.2); Carbon Dioxide 30 mmol/L (22-30); Chloride 97 mmol/L (98-107); Cholesterol 143 mg/dL (0-200); Estimated Glomerular Filt Rate > 60; Glucose 203 mg/dL (65-110); HDL Direct 58 mg/dL; Potassium 3.8 mmol/L (3.4-5.0); Sodium 134 mmol/L (137-145); Triglycerides 147 mg/dL (<150)
[2022-08-21 13:33] LABS: Hemoglobin A1C 7.1 % (<5.7)
[2022-08-21 13:41] LABS: LDL Cholesterol Direct 50 mg/dL
[2022-08-23 12:27] LABS: PCP NEGATIVE ng/mL (<25)
[2022-08-25 08:25] LABS: Amphetamines Negative; Barbiturates Negative; Benzodiazepines Negative; Cocaine Metabolites Negative; Marijuana Metabolites Positive
== END 2022-08-21 12:25 | disposition home or self-care (01) ==
PROVIDERS: PCP Internal Medicine; Visit Provider Nurse Practitioner
DX: E78.5 Hyperlipidemia, unspecified (principal); E11.9 Type 2 diabetes mellitus without complications; Z79.899 Other long term (current) drug therapy
CPT/HCPCS: 36415; 80053; 80061; 80307; 83036

== ENCOUNTER 2022-12-11 09:16 | Outpatient (CLI) | payer MEDICARE, MEDICAID, SELFPAY ==
--- NOTE | ~2022-12-11 | CT_ITS ---
EXAMINATION: CT lung screening DATE: 12/11/2022 09:35 INDICATION: Lung cancer screening TECHNIQUE: Computed tomography (CT) of the chest was performed without intravenous contrast. The dose -length product was 129.95 mGy-cm. Automated exposure control and iterative reconstruction technique were employed. COMPARISON: CT dated 12/09/2021 FINDINGS: No significant pleural or pericardial effusion. Mild mediastinal lymph node enlargement, li toro reactive. There is mild atherosclerosis of the aorta and coronary arteries. There are cholecyste ctomy clips. There is a new 4 mm right upper lobe nodule, image 47. There is a new 4 mm right upper l obe nodule, image 43. There is a 4 mm left upper lobe nodule, image 26. There are a few additional no dules of both lungs measuring 3 mm or less. There is emphysema. There is right upper lobe atelectasis /scarring anteriorly. No pneumothorax. No endobronchial lesions. Mild thoracic spondylosis. IMPRESSION: 1. Lung-RADS category 3: Probably benign. Further evaluation is recommended with noncontrast low-dose chest CT in 6 months. Reviewed, dictated and finalized at location [] IMPRESSION: 1. Lung-RADS category 3: Probably benign. Further evaluation is recommended wit h noncontrast low-dose chest CT in 6 months.
== END 2022-12-11 09:17 | disposition home or self-care (01) ==
PROVIDERS: PCP Internal Medicine; Visit Provider Physician Assistant
DX: Z12.2 Encounter for screening for malignant neoplasm of respiratory organs (principal); F17.210 Nicotine dependence, cigarettes, uncomplicated; R91.8 Other nonspecific abnormal finding of lung field
CPT/HCPCS: 71271

== ENCOUNTER 2023-02-06 11:01 | Outpatient (CLI) | payer MEDICARE, MEDICAID, SELFPAY ==
--- NOTE | ~2023-02-06 | XR_ITS ---
Left Shoulder Technique: AP and scapular Y views were obtained. Clinical History: Pain Findings: No fracture or dislocation is seen. Osseous alignment is anatomic. There is mild AC joint d egenerative change. Glenohumeral joint is intact. Soft tissues are unremarkable. Impression: Mild AC joint degenerative change. Reviewed, dictated and finalized at location . Impression: Mild AC joint degenerative change.
== END 2023-02-06 11:02 | disposition home or self-care (01) ==
PROVIDERS: PCP Family Medicine; Visit Provider Nurse Practitioner
DX: M25.512 Pain in left shoulder (principal); R93.6 Abnormal findings on diagnostic imaging of limbs
CPT/HCPCS: 73030

== ENCOUNTER 2023-03-23 10:16 | Outpatient (CLI) | payer MEDICARE, MEDICAID, SELFPAY ==
[2023-03-23 10:34] LABS: Basophils Percent Auto 0.4 % (0.2-1.2); Eosinophils Absolute Auto 0.3 K/mm3 (0-0.3); Eosinophils Percent Auto 3.2 % (0-4.4); Hematocrit 47.4 % (37.0-47.0); Hemoglobin 15.2 g/dL (12.0-15.0); Immature Granulocyte Absolute 0.01 K/mm3 (0.00-0.031); Immature Granulocyte Percent A 0.1 % (0-0.5); Lymphocytes Absolute Auto 1.69 K/mm3 (0.9-3.2); Mean Corpuscular HGB Conc 32.1 g/dl (32-36); Mean Corpuscular Hemoglobin 30.3 pg (26-34); Mean Corpuscular Volume 94.6 fl (80-100); Mean Platelet Volume 9.9 fl (7.4-10.4); Monocytes Absolute Auto 0.6 K/mm3 (0.1-0.6); Monocytes Percent Auto 7.4 % (2.6-8.5); Neutrophils Absolute Auto 5.5 K/mm3 (1.3-6.7); Neutrophils Percent Auto 67.9 % (45.5-73.1); Platelet Count Result 227 k/mm3 (150-375); Red Blood Count 5.01 M/mm3 (4.2-5.4); White Blood Count 8.1 K/mm3 (4.5-10.0)
== END 2023-03-23 10:17 | disposition home or self-care (01) ==
LOC: ANHLAB 10:19
PROVIDERS: PCP Family Medicine; Visit Provider Internal Medicine Hematology & Oncology
DX: D75.1 Secondary polycythemia (principal)
CPT/HCPCS: 36415; 85025

== ENCOUNTER 2023-04-06 07:53 | Outpatient (CLI) | payer MEDICARE, MEDICAID, SELFPAY ==
--- NOTE | 2023-04-06 09:43 | WPDSIXMINUTE ---
Six Minute Walk Procedure Procedure Performed Pulmonary Stress Test (6 min walk) Six Minute Walk Six Minute Walk: This 6 minute walk test was carried out with the patient breathing ambient air. The baseline pre-walk oxyhemoglobin saturation was 94%. The patient walked 305 m with no stops during testing. During the walk, the oxyhemoglobin saturation remained in the range of 90% to 94%. Impression: No evidence of oxyhemoglobin desaturation on this testing.
== END 2023-04-06 07:54 | disposition home or self-care (01) ==
LOC: ANHPFT 07:54
PROVIDERS: PCP Family Medicine; Visit Provider Physician Assistant
DX: J44.9 Chronic obstructive pulmonary disease, unspecified (principal)
CPT/HCPCS: 94618

== ENCOUNTER → 2023-04-19 15:19 | Outpatient (CLI) | payer MEDICARE, MEDICAID, SELFPAY ==
--- NOTE | ~2023-04-19 | MR_ITS ---
MRI of the left shoulder Technique: Axial proton-density fat-sat images, coronal proton density fat-sat and T2 fat-sat images, and sagittal T1-weighted and T2 fat-sat images were acquired. Clinical History: Pain Findings: There is moderate AC joint degenerative change. Coracoclavicular, coracoacromial, and corac ohumeral ligaments are intact. There are small focal low-grade interstitial tears at the myotendinous junction regions of the supras pinatus and infraspinatus tendons. No high-grade partial or full-thickness tear seen. There is modera te tendinosis of the distal supraspinatus tendon. Subscapularis tendon is intact, with moderate tendi nosis. Tendon of the long head of the biceps is intact. No definite labral tear seen. Inferior glenohumeral ligament is intact. No significant degenerative change of the glenohumeral join t. There is minimal glenohumeral joint effusion. There is minimal fluid in the subacromial/subdeltoid bursa. No muscle atrophy or edema identified. Impression: Focal low-grade interstitial tears at the myotendinous junction regions of the supraspinatus and infr aspinatus tendons. No high-grade partial or full-thickness rotator cuff tear seen. Moderate AC joint degenerative change. Minimal subacromial/subdeltoid bursitis. Reviewed, dictated and finalized at [facility]. Impression: Focal low-grade interstitial tears at the myotendinous junction regions of the supraspinatus and infraspinatus tendons. No high-grade partial or full-thicknes s rotator cuff tear seen. Moderate AC joint degenerative change. Minimal subacromial/subdeltoid bursitis.
== END ==
PROVIDERS: PCP Orthopaedic Surgery; Visit Provider Orthopaedic Surgery
DX: M75.52 Bursitis of left shoulder (principal); M19.012 Primary osteoarthritis, left shoulder
CPT/HCPCS: 73221

== ENCOUNTER 2023-09-25 09:20 | Outpatient (CLI) | payer MEDICARE, MEDICAID, SELFPAY ==
[2023-09-25 09:40] LABS: Basophils Percent Auto 0.3 % (0.2-1.2); Eosinophils Absolute Auto 0.1 K/mm3 (0-0.3); Eosinophils Percent Auto 1.1 % (0-4.4); Hematocrit 42.6 % (37.0-47.0); Hemoglobin 13.5 g/dL (12.0-15.0); Immature Granulocyte Absolute 0.04 K/mm3 (0.00-0.031); Immature Granulocyte Percent A 0.3 % (0-0.5); Lymphocytes Absolute Auto 1.23 K/mm3 (0.9-3.2); Lymphocytes Percent Auto 10.1 % (18.3-44.2); Mean Corpuscular HGB Conc 31.7 g/dl (32-36); Mean Corpuscular Volume 88.4 fl (80-100); Mean Platelet Volume 9.1 fl (7.4-10.4); Monocytes Absolute Auto 0.8 K/mm3 (0.1-0.6); Monocytes Percent Auto 6.7 % (2.6-8.5); Neutrophils Absolute Auto 9.9 K/mm3 (1.3-6.7); Neutrophils Percent Auto 81.5 % (45.5-73.1); Platelet Count Result 429 k/mm3 (150-375); Red Blood Count 4.82 M/mm3 (4.2-5.4); Red Cell Distribution Width 12.2 % (11.5-14.5); White Blood Count 12.2 K/mm3 (4.5-10.0)
[2023-09-25 09:44] LABS: Blood Urea Nitrogen 9 mg/dL (8-26); Carbon Dioxide 34 mmol/L (22-30); Chloride 89 mmol/L (98-109); Estimated Glomerular Filt Rate > 60; Glucose 331 mg/dL (70-105); Ionized Calcium (POC) 1.08 mmol/L (1.11-1.31); Potassium 4.8 mmol/L (3.5-4.9); Sodium 131 mmol/L (138-146)
== END 2023-09-25 09:21 | disposition home or self-care (01) ==
PROVIDERS: PCP Nurse Practitioner; Visit Provider Internal Medicine Hematology & Oncology
DX: D75.1 Secondary polycythemia (principal)
CPT/HCPCS: 36415; 80047; 85025

== ENCOUNTER 2023-12-05 12:31 | Outpatient (CLI) | payer MEDICARE, MEDICAID, SELFPAY ==
--- NOTE | ~2023-12-05 | CT_ITS ---
CT Scan of the Chest without Contrast: Clinical Indication: Pulmonary nodules Technique: Contiguous sections were acquired throughout the chest without intravenous contrast. Dose reduction technique was used on this scan by utilizing automated exposure control and iterative recon struction technique. The dose-length product (DLP) was 118.38 mGy-cm. COMPARISON: 12/11/2022 Findings: No aortic aneurysm. No axillary lymphadenopathy. No pericardial effusion. Probable right supraclavicu lar lymphadenopathy. Moderate to large right pleural effusion present. No left pleural effusion. There is a probable large right upper lobe mass and/or complete right upper lobe atelectasis. There i s obliteration/cut off of the right upper lobe bronchus. Mass probably extends into the subcarinal an d right paratracheal stripe regions. 1 cm left upper lobe pulmonary nodule present (axial image 49). Images through the upper abdomen reveal no abnormalities. Impression: Large right upper lobe mass and/or complete right upper lobe atelectasis with cut off/obliteration of the right upper lobe bronchus. Findings are compatible with a central obstructing right upper lobe n eoplastic mass. Precise delineation of mass versus atelectatic right upper lobe is difficult. Conside r contrast enhanced exam and/or PET/CT to hopefully better delineate extent of underlying mass. Probable direct extension of mass versus confluent lymphadenopathy extending to the right paratrachea l region and subcarinal region. Probable right supraclavicular lymphadenopathy. 1 cm left upper lobe pulmonary nodule, indeterminate. Metastasis or synchronous neoplastic lesion are considerations. Moderate to large layering right pleural effusion. Case reported to [facility]'s staff at the time of this reading. Reviewed, dictated and finalized at location . Impression: Large right upper lobe mass and/or complete right upper lobe atelectasis with c ut off/obliteration of the right upper lobe bronchus. Findings are compatible w ith a central obstructing right upper lobe neoplastic mass. Precise delineation of mass versus atelectatic right upper lobe is difficult. Consider contrast en hanced exam and/or PET/CT to hopefully better delineate extent of underlying ma ss. Probable direct extension of mass versus confluent lymphadenopathy extending to the right paratracheal region and subcarinal region. Probable right supraclavicular lymphadenopathy. 1 cm left upper lobe pulmonary nodule, indeterminate. Metastasis or synchronous neoplastic lesion are considerations. Moderate to large layering right pleural effusion. Case reported to [facility]'s staff at the time of this reading.
== END 2023-12-05 12:32 | disposition home or self-care (01) ==
PROVIDERS: PCP Nurse Practitioner; Visit Provider Physician Assistant
DX: R91.8 Other nonspecific abnormal finding of lung field (principal); R91.1 Solitary pulmonary nodule; J90 Pleural effusion, not elsewhere classified
CPT/HCPCS: 71250

== ENCOUNTER 2023-12-11 08:32 | Outpatient (CLI) | payer MEDICARE, MEDICAID, SELFPAY ==
[2023-12-10 13:28] VITALS: BMI 27.4
--- NOTE | 2023-12-10 13:32 | PC.NURSE ---
Pre Radiology instructions Report to the outpatient awilda patterson on date __12/11/23___ at time __0830 for procedure Time: 1030____ YOU MAY BE MONITORED AT HOSPITAL FOR UP TO 4 HOURS AFTER YOUR PROCEDURE. A visitor will be allowed to accompany the patient into the hospital. You and your visitor will be asked to self-screen and do not enter if you have any COVID symptoms. A mask is OPTIONAL within the hospital. Patients are to have no food or drink 6 hours prior to procedure time Driving will be restricted after the procedure, you must have a person to drive you home. Labs will be drawn in preop area and once reviewed, you will be taken to radiology area for procedure. When the procedure is completed, you will be taken to outpatient where you will be monitored for several hours. You may have one visitor in this area. Other than holding anti-coagulants, patient may take other medication(s) as scheduled. Prior to your appointment date patients are instructed to hold anti-coagulants after discussing with ordering provider to stop. If unable to discontinue anti-coagulants please notify radiologist. ? No aspirin or warfarin (Coumadin) for 7 days prior to the procedure. ? No clopidogrel (Plavix), ticagrelor (Brilinta), prasugrel (Effient) or dabigatran (Pradaxa) for 5 days prior to the procedure. ? No rivaroxaban (Xarelto), apixaban (Eliquis), dipyridamole (Aggrenox or Persantine) or cilostazol (Pletal) for 2 days prior to the procedure. Medications to discontinue per physician: __N/A Date to take last dose: Please leave all valuables, including medications, at home the day of procedure. The hospital will not accept responsibility for valuables. Wear comfortable, loose fitting clothing.? Follow any additional instructions given to you from ordering provider. Telephone instructions given to __PATIENT and asked if any additional questions and then verbalized understanding. Patient advised to call scheduling provider office or registration scheduling [phone] if any additional questions.
[2023-12-11] VITALS (8 sets, daily range): BP systolic 109–144; BP diastolic 58–99; PULSE 75–110; RESP 18–22; TEMP 36.8; O2SAT 90–95
--- NOTE | ~2023-12-11 | US_ITS ---
EXAMINATION: US thoracentesis DATE: 12/11/2023 11:28 INDICATION: Unilateral right pleural effusion TECHNIQUE: The procedure and its risks and benefits were discussed with the patient. Potential risks discussed included bleeding, infection, and pneumothorax. The patient understood the risks and agreed to proceed. The skin was prepped and draped in sterile fashion. 1% lidocaine was used for local anes thesia. Under ultrasound guidance, a 5 Fr catheter with trochar was advanced into the right pleural e ffusion. Fluid was aspirated. The catheter was removed, and a dressing was applied. There were no imm ediate complications. FINDINGS: Ultrasound images demonstrate a moderate-sized right pleural effusion and the catheter within the flu id. Incidentally noted is nodular pleural thickening along the right hemidiaphragm which raises zan rn for malignancy. IMPRESSION: 1. Successful ultrasound-guided thoracentesis yielding 750 mL of yellowish fluid. 2. Nodular pleural thickening along the right hemidiaphragm which raises concern for malignancy. If c ytology thoracentesis as negative, given the consolidation concerning for postobstructive pneumonia i n the right upper lobe on prior CT would consider bronchoscopy for further evaluation. Reviewed, dictated and finalized at location A. IMPRESSION: 1. Successful ultrasound-guided thoracentesis yielding 750 mL of yellowish flu id. 2. Nodular pleural thickening along the right hemidiaphragm which raises concer n for malignancy. If cytology thoracentesis as negative, given the consolidatio n concerning for postobstructive pneumonia in the right upper lobe on prior CT would consider bronchoscopy for further evaluation.
--- NOTE | ~2023-12-11 | XR_ITS ---
EXAMINATION: [id number] DATE: 12/11/2023 10:56 INDICATION: Status post right thoracentesis TECHNIQUE: frontal view of the chest was obtained. COMPARISON: Chest CT dated 12/05/2023 FINDINGS: Near complete resolution of the prior moderate-sized right pleural effusion with residual very small amount of fluid at the right costophrenic angle. Persistent consolidation without associated volume l oss in the right upper lobe which is concerning for underlying malignancy or pneumonia. Left lung rem ains clear. No pulmonary edema, pneumothorax or left-sided pleural effusion. Heart size is normal. IMPRESSION: 1. Very small residual right pleural effusion postthoracentesis with no pulmonary edema or pneumothor ax. 2. Persistent consolidation without volume loss in the right upper lobe which raises concern for pneu monia or malignancy. Reviewed, dictated and finalized at location A. IMPRESSION: 1. Very small residual right pleural effusion postthoracentesis with no pulmona ry edema or pneumothorax. 2. Persistent consolidation without volume loss in the right upper lobe which r aises concern for pneumonia or malignancy.
[2023-12-11 09:58] LABS: Mean Platelet Volume 10.2 fl (7.4-10.4); Platelet Count Result 356 k/mm3 (150-375)
[2023-12-11 10:05] LABS: Prothrombin Time 13.5 Seconds (11.1-14.7)
[2023-12-11 11:35] LABS: pH Pleural Fluid > 7.500 (7.210-7.500)
[2024-01-02 18:34] LABS: LDH Pleural Fluid 251 U/L; Total Protein Pleural Fluid 4.9 g/dL
== END 2023-12-11 13:05 | disposition home or self-care (01) ==
PROVIDERS: PCP Nurse Practitioner; Referring Provider Internal Medicine Critical Care Medicine; Visit Provider Radiology Diagnostic Radiology
DX: J90 Pleural effusion, not elsewhere classified (principal)
CPT/HCPCS: 32555; 36415; 82945; 83615; 83986; 84157; 85049; 85610; 87015; 87070; 87075; 87102; 87116; 87205; 87206; 88104; 88108; 88305; 88342

== ENCOUNTER 2023-12-31 13:08 | Outpatient (CLI) | payer MEDICARE, MEDICAID, SELFPAY ==
[2023-12-31 14:04] LABS: Alanine Aminotransferase 16 U/L (6-35); Albumin Level 4.1 g/dL (3.5-5.1); Alkaline Phosphatase 94 U/L (38-126); Anion Gap 3 mmol/L (4-12); Aspartate Amino Transferase 21 U/L (14-36); Bilirubin,Total 0.5 mg/dL (0.2-1.3); Blood Urea Nitrogen 14 mg/dL (7-17); Carbon Dioxide 38 mmol/L (22-30); Chloride 91 mmol/L (98-107); Cholesterol 136 mg/dL (0-200); Estimated Glomerular Filt Rate > 60; Glucose 322 mg/dL (65-110); HDL Direct 54 mg/dL; Potassium 3.9 mmol/L (3.4-5.0); Sodium 132 mmol/L (137-145); Triglycerides 136 mg/dL (<150)
[2023-12-31 14:14] LABS: LDL Cholesterol Direct 60 mg/dL
[2023-12-31 14:47] LABS: Hemoglobin A1C 9.7 % (<5.7)
== END 2023-12-31 13:09 | disposition home or self-care (01) ==
PROVIDERS: PCP Nurse Practitioner; Visit Provider Nurse Practitioner
DX: E78.5 Hyperlipidemia, unspecified (principal); E11.9 Type 2 diabetes mellitus without complications
CPT/HCPCS: 36415; 80053; 80061; 83036

== ENCOUNTER 2024-01-14 09:00 | Outpatient (CLI) | payer MEDICARE, MEDICAID, SELFPAY ==
--- NOTE | ~2024-01-14 | US_ITS ---
EXAMINATION: US biopsy lymph node DATE: 01/14/2024 10:11 INDICATION: Suspected lung cancer with right supraclavicular lymph node. TECHNIQUE: The procedure including the risks and benefits was discussed with the patient. Risks discu ssed included bleeding and infection. The patient understood the risks and agreed to proceed. The sk in overlying the liver was prepped and draped in usual sterile fashion. Anesthetic was administered with 1% lidocaine subcutaneously. An 18 gauge core biopsy needle was advanced under continuous ultra sound observation to the lesion of interest. 3 core biopsy specimens were obtained. The needle was removed and the entry site was cleaned and dressed. Post procedure ultrasound demonstrated no hemorr anh. FINDINGS: Ultrasound images demonstrate a couple enlarged lymph nodes at the junction of the right st ernoclavicular and inferior jugular chains. The more cephalad biopsied lymph node measures 2.4 x 1.6 x 1.5 cm. Subsequent images demonstrate the biopsy needle advanced into the lymph node. IMPRESSION: 1. Successful Ultrasound-guided biopsy of a 2.4 x 1.6 x 1.5 cm right supraclavicular lymph node. Reviewed, dictated and finalized at location A. IMPRESSION: 1. Successful Ultrasound-guided biopsy of a 2.4 x 1.6 x 1.5 cm right supraclavi cular lymph node.
== END 2024-01-14 09:01 | disposition home or self-care (01) ==
LOC: ANHIMG 09:03
PROVIDERS: PCP Family Medicine; Visit Provider Internal Medicine Critical Care Medicine
DX: C7A.8 Other malignant neuroendocrine tumors (principal)
CPT/HCPCS: 38505; 76942; 88305; 88342

== ENCOUNTER 2024-02-05 09:14 | Outpatient (CLI) | payer MEDICARE, MEDICAID, SELFPAY ==
--- NOTE | ~2024-02-05 | PE_ITS ---
EXAMINATION: PET skull to mid thigh DATE: 02/05/2024 13:37 INDICATION: Small cell lung cancer. TECHNIQUE: Blood glucose level was 148 mg/dL. 9.640 mCi of 18-fluorodeoxyglucose (18-FDG) was adminis tered i.v. Low dose computed tomography (CT) images were acquired from the base of the brain to the p roximal thighs for attenuation correction and anatomic localization. Automated exposure control was e mployed. Dose-length product (DLP) was 613 mGy-cm. Positron emission tomography (PET) images were acq uired in the same distribution. COMPARISON: Chest CT 12/05/2023 FINDINGS: Head/neck: There is right supraclavicular lymphadenopathy with increased activity. Chest: There is a right perihilar mass with involvement of the right mainstem bronchus and total occl usion of the right upper lobe bronchus. There are airspace opacities with volume loss involving the m ajority of the right upper lobe with increased activity. There is a 9 mm nodule in left upper lobe wi th maximum SUV of 1.7, probably benign. There is a small right pleural effusion. There is mediastinal and right hilar lymphadenopathy with increased activity. For example, a 2.5 x 2.1 cm right paratrach eal node demonstrates maximum SUV of 11.6. Abdomen/pelvis/proximal thighs: The liver and spleen are normal. There are changes of cholecystectomy . The pancreas, adrenal glands, and kidneys are normal. There is calcified atherosclerosis of the aor ta and many of the other arteries. There are bilateral inguinal hernias containing fat. There is dive rticulosis of the colon without evidence of diverticulitis. There are no dilated loops of bowel. Ther e are no pathologically enlarged lymph nodes. There is no free intraperitoneal fluid. There is no oss eous malignancy. IMPRESSION: 1. Ill-defined right perihilar mass with involvement of the mainstem bronchus and total occlusion of right upper lobe bronchus, consistent with primary bronchogenic carcinoma. 2. Airspace opacities with volume loss and increased activity involving the majority of right upper l obe, likely some combination of malignancy, postobstructive pneumonia, and atelectasis. 3. Mediastinal, right hilar, and right supraclavicular lymphadenopathy with increased activity, consi stent with metastatic disease. 4. Small right pleural effusion. 5. 9 mm nodule without increased activity in left upper lobe, probably benign. Reviewed, dictated and finalized at location A. IMPRESSION: 1. Ill-defined right perihilar mass with involvement of the mainstem bronchus a nd total occlusion of right upper lobe bronchus, consistent with primary bronch ogenic carcinoma. 2. Airspace opacities with volume loss and increased activity involving the ashlee ority of right upper lobe, likely some combination of malignancy, postobstructi ve pneumonia, and atelectasis. 3. Mediastinal, right hilar, and right supraclavicular lymphadenopathy with inc reased activity, consistent with metastatic disease. 4. Small right pleural effusion. 5. 9 mm nodule without increased activity in left upper lobe, probably benign.
--- NOTE | ~2024-02-05 | MR_ITS ---
EXAMINATION: MR brain/brain stem wo/w con DATE: 02/05/2024 11:00 INDICATION: Small cell lung cancer. TECHNIQUE: Magnetic resonance imaging (MRI) of the brain and brainstem was performed without and with 11 mL MultiHance intravenous contrast. COMPARISON: None. FINDINGS: There are scattered areas of nonspecific increased T2-weighted signal intensity in the cere bral white matter. There is no intracranial hemorrhage, acute infarction, or abnormal intracranial ma ss lesion. The ventricles are normal in size. The paranasal sinuses are clear. The orbits are normal. The mastoid air cells are normal. IMPRESSION: 1. No evidence of metastatic disease. 2. Mild nonspecific cerebral white matter disease, which likely represents chronic small vessel ische gabe disease. Reviewed, dictated and finalized at location A. IMPRESSION: 1. No evidence of metastatic disease. 2. Mild nonspecific cerebral white matter disease, which likely represents clinical staff rn kevin small vessel ischemic disease.
[2024-02-05 11:09] LABS: Glucose Point of Care 148 mg/dl (65-105)
== END 2024-02-05 09:15 | disposition home or self-care (01) ==
PROVIDERS: PCP Family Medicine; Visit Provider Internal Medicine Hematology & Oncology
DX: C34.01 Malignant neoplasm of right main bronchus (principal); R91.1 Solitary pulmonary nodule; J90 Pleural effusion, not elsewhere classified
CPT/HCPCS: 70553; 78815; A9552; A9577

== ENCOUNTER 2024-02-06 01:09 | Day surgery (SDC) | payer MEDICARE, MEDICAID, SELFPAY ==
[2024-02-05 14:00] VITALS: BMI 25.0
--- NOTE | 2024-02-05 14:34 | PC.NURSE ---
Report to the Outpatient Waiting Room, entrance under the green pavilion located off [facility], at time __11:30AM on date __02/06/24 . Planned Procedure Time: __1:30PM . Time changes happen often and if your time is changed the preop area will call you the afternoon before. - You and your visitor will be asked to self-screen and do not enter if you have any COVID symptoms. - A mask is optional within the hospital at this time. Patients may have clear liquids (water, carbonated beverages, clear teas, apple juice) until 3 hours prior to surgery with a maximum of 20 ounces. - No food from midnight until time of surgery - Infants may have breast milk until 4 hours before surgery, formula 6 hours prior to surgery. - Children will be allowed to drink immediately following surgery. If applicable, please bring a bottle or sippy cup to assist with drinking. Juice, water, soda, and popsicles are readily available. For infants on formula, please bring formula the day of surgery. Pacifiers are allowed. Take the following medications with a SIP of water the morning of surgery: ___BREZTRI INHALER, ALPRAZOLAM, DULOXETINE, OXYCODONE OR TRAMADOL NEEDED FOR PAIN, ALBUTEROL INHALER NEEDED FOR DYSPNEA OR WHEEZING DO NOT STOP ANY OF YOUR OTHER PRESCRIPTION MEDICATIONS PRIOR TO SURGERY ?EXCEPT THE FOLLOWING Medications to discontinue per physician ___HOLD ALL VITAMINS/SUPPLEMENTS STARTING NOW-02/05/24 Please no make-up, nail slovak, hairspray, perfume, deodorant, or body powder the day of surgery. No jewelry (including any body piercings) or valuables the day of surgery, leave them at home. Please take a shower or bath the night before, or the morning of, surgery with an antibacterial soap. Wear comfortable, loose fitting clothing. Children are encouraged to wear pajamas. - Jewelry must be removed prior to entering the operating room. Rings and piercings that are not removed may be cut off. - The hospital will not accept responsibility for valuables. - Please leave all valuables, including medications, at home the day of surgery. If you are going home after surgery, a licensed stock driver must drive you home. - NO public transportation without another adult if you receive anesthesia. - We recommend that an adult stay with you for 24 hours following discharge. - We also recommend that you do not drive, make important decision, drink alcoholic beverages, or take any drugs that were not prescribed by your health care provider for at least 24 hours after your discharge time. For Pediatric surgeries, we recommend two adults accompany the child home. Follow any additional instructions given to you from your surgeon. If you or anyone in your household have experienced Covid symptoms in the past week, please notify your surgeon or the nurse liaison at the phone number below for possible testing. Telephone instructions given to ___PATIENT and asked if any additional questions and then verbalized understanding. Patient advised to call surgeon office or pre surgery nurse liaison [phone] if any additional questions.
--- NOTE | ~2024-02-06 | XR_ITS ---
EXAMINATION: XR chest port-a-cath/central DATE: 02/06/2024 14:48 INDICATION: Port placement. TECHNIQUE: A single frontal view of the chest was obtained. COMPARISON: Chest single view 12/11/2023 FINDINGS: There are airspace opacities in right upper lobe. There is a small right pleural effusion. No pneumothorax. The heart size is normal. There is a left internal jugular port with tip in superior vena cava. IMPRESSION: 1. Poor tip in superior vena cava. 2. Airspace opacities in right upper lobe, likely a combination of malignancy, postobstructive pneumo haylee, and atelectasis. 3. Small right pleural effusion. Reviewed, dictated and finalized at location A. IMPRESSION: 1. Poor tip in superior vena cava. 2. Airspace opacities in right upper lobe, likely a combination of malignancy, postobstructive pneumonia, and atelectasis. 3. Small right pleural effusion.
--- NOTE | ~2024-02-06 | XR_ITS ---
EXAMINATION: XR fl guide central line place DATE: 02/06/2024 14:26 INDICATION: Port placement. TECHNIQUE: 2 intraoperative fluoroscopic views of the chest were obtained. I was not present. Fluoros copy time was 74 seconds. COMPARISON: Chest CT 12/05/2023, PET CT 02/05/24 FINDINGS: There is a left internal jugular port with tip in superior vena cava. There are airspace op acities in right upper lobe. IMPRESSION: 1. Poor tip in superior vena cava. 2. Stable airspace opacities in right upper lobe, likely a combination of malignancy, postobstructive pneumonia, and atelectasis. Reviewed, dictated and finalized at location A. IMPRESSION: 1. Poor tip in superior vena cava. 2. Stable airspace opacities in right upper lobe, likely a combination of malig yogi, postobstructive pneumonia, and atelectasis.
--- NOTE | 2024-02-06 10:56 | PM.IMHP ---
H&P: HPI History of Present Illness Date/Time: 02/06/24 10:56 Chief Complaint: RUL lung cancer Narrative: Pt is a 68 y/o F presenting for port placement for chemotherapy access. Pt recently dx'd c right upper lobe lung cancer. Pt denies previous central venous catheterization. Review of Systems Review of Systems: All systems reviewed & are unremarkable except as noted in HPI and below PMFSH Past Medical History Medical History Anxiety and depression Benign essential hypertension Biliary dyskinesia Chronic low back pain Chronic obstructive pulmonary disease Chronic pain Fibromyalgia GERD (gastroesophageal reflux disease) History of tobacco abuse Hypovitaminosis D Mixed hyperlipidemia ASAF (obstructive sleep apnea) Pancreatitis Restless leg syndrome Rheumatoid arthritis of unspecified site with involvement of other organs and systems Seasonal allergies Tobacco use Type 2 diabetes mellitus with complication Surgical History Surgical History H/O tubal ligation History of appendectomy Open appendectomy for ruptured appendicitis History of arthroplasty of finger of right hand History of tonsillectomy Hx of cholecystectomy S/P thoracentesis On the left Total knee replacement status Left Family History Family History Grandparent Diabetes mellitus Father Lung cancer Mother Heart attack Social History Social History Social History: The patient has a significant other. the patient would like her son to be the durable power ip attorney if necessary. The patient desires to be a full code. She has 3 sons. The patient is on disability. She has smoked a pack a cigarettes a day for 40 years. She may be drinks twice a year. She does use marijuana about twice a week for her pain. Smoking packs per day: 1 Smoking cigarettes per day: 20.0 Years smoked: 50 Smoking pack-years: 50.00 Smoking status: Current every day smoker Tobacco type: cigarettes Second hand tobacco smoke exposure: No Smoking end date: 10/22/20 Additional smoking assessment comments: 2 CIG/DAY CURRENTLY- TRYING TO QUIT Alcohol intake: never Alcohol use details: Rare alcohol use - Twice per year. Denies binge drinking. Substance use: current Substance use type: marijuana Other substance usage details: occasional marijuana use Last use: 1 week ago Lack of Transportation: No Lack of Food: Never True Current Housing: I Have Housing Concerned About Future Housing: No Difficulty Paying Gas/Electric Bills: No Difficulty Paying for Meds: No Currently Unemployed: No Education: High School Diploma/GED Difficulty w/ Childcare or Family Care: No Living arrangements: with family Additional living arrangements comments: [facility] Occupation/Education: other Additional occupation/education comments: On disability. Gender identity (if verbalized by the patient): Female Sexual Orientation (if Verbalized by the Patient): Straight or Heterosexual Spiritual care concerns: No Agree to blood products: Yes Meds Home Medications and Allergies Home Medications Medication Instructions Recorded Confirmed Type nystatin 100,000 unit/gram topical 1 applic topical BID PRN Itching 10/26/20 02/05/24 History powder gabapentin 300 mg capsule 300 mg PO QHS #90 caps 09/18/22 02/05/24 Rx Breztri Aerosphere 160 2 inh inhalation BID #10.7 grams 02/06/23 02/05/24 Rx mcg-9mcg-4.8mcg/actuation HFA aerosol inhaler (irafxsiait-hrmwnjca-[id number]) duloxetine 30 mg capsule,delayed 90 mg PO DAILY #90 caps 03/12/23 02/05/24 Rx release albuterol sulfate 90 mcg/actuation 1 - 2 puff inhalation Q4-6H PRN 06/19/23 02/05/24 Rx aerosol inhaler shortness of breath or wheezing #8.5 grams ator
--- NOTE | 2024-02-06 11:01 | WPDHPUPDATE1 ---
History and Physical Update Update Date/Time: 02/06/24 11:01 History and Physical has been reviewed, including an updated exam of the patient. There are NO changes in the patient's condition. Risks, benefits, and alternatives have been discussed and questions answered. Patient agrees to proceed with procedure.
[2024-02-06 11:30] VITALS: BP 123/72; PULSE 90; RESP 16; TEMP 36.3; O2SAT 97
--- NOTE | 2024-02-06 12:08 | WPDANESEPPF ---
Anes - Initial Pre Proc Eval Procedure: Operation Date: 02/06/24 13:30 Proposed Procedures p Insertion Porter Cath - Kimberly Mccray MD Date/Time: 02/06/24 12:08 Surgeon: Kimberly Mccray MD Pre Op Diagnosis: small cell lung CA Patient Data Age: 68 Gender: F Height: 1.52 m Weight: 58 kg Allergies Allergy/AdvReac Type Severity Reaction Status Date / Time thiopental Allergy Intermediate N/V AND Verified 02/05/24 13:51 RASH WITH SODIUM PENTOTHAL Home Medications Medication Instructions Recorded Confirmed Type nystatin 100,000 unit/gram topical 1 applic topical BID PRN Itching 10/26/20 02/05/24 History powder gabapentin 300 mg capsule 300 mg PO QHS #90 caps 09/18/22 02/05/24 Rx Breztri Aerosphere 160 2 inh inhalation BID #10.7 grams 02/06/23 02/05/24 Rx mcg-9mcg-4.8mcg/actuation HFA aerosol inhaler (voygeiktat-vhgiwudo-wdfwdzuyer) duloxetine 30 mg capsule,delayed 90 mg PO DAILY #90 caps 03/12/23 02/05/24 Rx release albuterol sulfate 90 mcg/actuation 1 - 2 puff inhalation Q4-6H PRN 06/19/23 02/05/24 Rx aerosol inhaler shortness of breath or wheezing #8.5 grams atorvastatin 40 mg tablet See Rx Instructions .Route 08/17/23 02/05/24 Rx .COMPLEX #90 tabs metformin 500 mg tablet See Rx Instructions .Route 08/17/23 02/05/24 Rx .COMPLEX #180 tabs trazodone 150 mg tablet 150 mg PO QHS PRN sleep #90 tabs 09/26/23 02/05/24 Rx cyanocobalamin (vitamin B-12) 1,000 mcg PO DAILY 12/10/23 02/05/24 History 1,000 mcg capsule tramadol 50 mg tablet 50 mg PO Q8H PRN pain #80 tabs 12/30/23 02/05/24 Rx empagliflozin 25 mg tablet 25 mg PO QAM #90 tabs 01/02/24 02/05/24 Rx (Jardiance) alprazolam 0.5 mg tablet (Xanax) 0.5 mg PO BID PRN anxiety #30 tabs 01/18/24 02/05/24 Rx ropinirole 0.5 mg tablet 0.5 mg PO QHS PRN RLS #90 tabs 01/24/24 02/05/24 Rx multivitamin 1 tablet PO DAILY 02/05/24 02/05/24 History oxycodone 5 mg tablet 1 mg PO Q4-6H PRN Pain 02/05/24 02/05/24 History Patient hx anesthesia problems: none Family hx anesthesia problems: none Results Review: All pre-operative results and documents have been reviewed as part of the pre-operative evaluation. [facility] Past Medical History Medical History Anxiety and depression Benign essential hypertension Biliary dyskinesia Chronic low back pain Chronic obstructive pulmonary disease Chronic pain Fibromyalgia GERD (gastroesophageal reflux disease) History of tobacco abuse Hypovitaminosis D Mixed hyperlipidemia ASAF (obstructive sleep apnea) Pancreatitis Restless leg syndrome Rheumatoid arthritis of unspecified site with involvement of other organs and systems Seasonal allergies Tobacco use Type 2 diabetes mellitus with complication Surgical History Surgical History H/O tubal ligation History of appendectomy Open appendectomy for ruptured appendicitis History of arthroplasty of finger of right hand History of tonsillectomy Hx of cholecystectomy S/P thoracentesis On the left Total knee replacement status Left Family History Family History Grandparent Diabetes mellitus Father Lung cancer Mother Heart attack Social History Social History Social History: The patient has a significant other. the patient would like her son to be the durable power real estate associate attorney if necessary. The patient desires to be a full code. She has 3 sons. The patient is on disability. She has smoked a pack a cigarettes a day for 40 years. She may be drinks twice a year. She does use marijuana about twice a week for her pain. Smoking packs per day: 1 Smoking cigarettes per day: 20.0 Years smoked: 50 Smoking pack-years: 50.00 Smoking status: Current every day smoker Tobacco type: cigarettes Second hand tobacco s
[2024-02-06 12:19] LABS: Basophils Percent Auto 0.2 % (0.2-1.2); Eosinophils Absolute Auto 0.1 K/mm3 (0-0.3); Hematocrit 44.3 % (37.0-47.0); Hemoglobin 13.7 g/dL (12.0-15.0); Immature Granulocyte Absolute 0.03 K/mm3 (0.00-0.031); Immature Granulocyte Percent A 0.4 % (0-0.5); Lymphocytes Absolute Auto 1.09 K/mm3 (0.9-3.2); Lymphocytes Percent Auto 13.4 % (18.3-44.2); Mean Corpuscular HGB Conc 30.9 g/dl (32-36); Mean Corpuscular Hemoglobin 27.7 pg (26-34); Mean Corpuscular Volume 89.7 fl (80-100); Mean Platelet Volume 9.5 fl (7.4-10.4); Monocytes Absolute Auto 0.6 K/mm3 (0.1-0.6); Monocytes Percent Auto 6.8 % (2.6-8.5); Neutrophils Absolute Auto 6.4 K/mm3 (1.3-6.7); Neutrophils Percent Auto 78.2 % (45.5-73.1); Platelet Count Result 338 k/mm3 (150-375); Red Blood Count 4.94 M/mm3 (4.2-5.4); Red Cell Distribution Width 13.4 % (11.5-14.5); White Blood Count 8.1 K/mm3 (4.5-10.0)
[2024-02-06] MEDS: KETOROLAC 15 MG/ML VIAL (*BKC) IV PUSH (12:30)
[2024-02-06 12:35] LABS: Glucose Point of Care 306 mg/dl (65-105)
--- NOTE | 2024-02-06 12:40 | SUR.PREOP ---
1240- Notified Dr. Marrero patient's BG 222 in pre-op. No additional orders at this time.
[2024-02-06] MEDS: LACTATED RINGERS 1,000 ML 30 ML IV CONT (12:43)
[2024-02-06 12:44] VITALS: BMI 25.0
[2024-02-06 13:06] LABS: Glucose Point of Care 222 mg/dl (65-105)
[2024-02-06] MEDS: ceFAZolin 2 GM/D5W 50 ML 2 GM/50 ML BAG IVPB (13:32)
[2024-02-06] MEDS: HEPARIN SODIUM 5,000 UNITS/ML VIAL 5000 UNITS IRRIGATION (13:54)
[2024-02-06] MEDS: BUPIVACAINE/EPINEPHRINE 0.5% 10 ML VIAL 20 ML INFILTRATE (13:55)
[2024-02-06] MEDS: HEPARIN SODIUM, PORCINE 10,000 UNITS/10 ML VIAL 4000 UNITS IRRIGATION (13:55)
[2024-02-06 14:34] VITALS: BP 114/67; PULSE 82; RESP 15; O2SAT 95
[2024-02-06 14:44] LABS: Glucose Point of Care 179 mg/dl (65-105)
--- NOTE | 2024-02-06 14:45 | W.PM.PROC2 ---
Procedure Note - Detailed Date of Procedure 02/06/24 Pre-op Diagnosis small cell lung CA Post-op Diagnosis Same Procedure Performed Placement of left internal jugular venous access device under both ultrasound and fluoroscopic guidance Surgeon Kimberly Mccray MD Anesthesia MAC and Local Indications 68-year-old female with right-sided small cell lung cancer needing access for adjuvant chemotherapy Findings 1st stick left IJ Description of Procedure Patient was brought into the operating room and placed in the supine position. After adequate induction of mac anesthesia, the patient was prepped and draped in normal sterile fashion. Time-out was then done to verify the patient's identity, as well as the procedure being performed. I began by making a small incision in the left chest. I then used the ultrasound to gain access into the left internal jugular vein. Once access was gained, I placed the guidewire in the vein and confirmed proper positioning. I then locally anesthetized the area in the left chest. I then enlarged the incision including making a subcutaneous pocket inferiorly to allow placement of the port itself. I proceeded to tunnel the catheter from the chest to the left neck insertion site. I then placed a dilating sheath over the guidewire into the left internal jugular vein via sterile Seldinger technique. This was once again done and confirmed via fluoroscopic guidance. I then removed the dilator and the guidewire, now just leaving the sheath in the vein. At this point, there was noted to be high pressure coming from the sheath indicating an arterial pressure. Given this, the sheath was immediately removed and pressure was held. After approximately 10 minutes, there was noted to be a small hematoma however no further active bleeding. The patient was noted to be hemodynamically stable throughout. I then used the ultrasound once again to visualize the left internal jugular vein. I was again able to get access into the vein via ultrasound guidance. The guidewire was then placed in the needle was removed. Fluoroscopy again confirmed good positioning of the guidewire. I then placed the dilating sheath under fluoroscopic guidance over the guidewire into the vein. I then removed the dilator and the guidewire just leaving the sheath in the vein. At this point, this was confirmed to be venous in nature. I then fed the previously flushed catheter into the left internal jugular vein under fluoroscopic guidance. At approximately 27 cm, the catheter was noted to be near the atrial caval junction. I then peeled away the sheath, now just leaving the catheter in the vein. I then was able to easily draw and flush from the catheter. The catheter was cut to fit and attached to the port itself. The port was placed into the previously made subcutaneous pocket and sutured in with 0 Ethibond suture. Final fluoroscopic view showed the termination of the catheter at the atrial caval junction with a nice smooth curvature back to the port itself. I was able to gain access to the port with a Blair needle and was able to easily draw and flush from the port. I then flushed 4 cc of a final heparin flush into the port. The incision was closed with 3 0 Vicryl suture in the subcutaneous tissue and the skin was closed with 4 O Monocryl subcuticular suture. Dermabond was then placed on wound. The patient tolerated the procedure well and will be sent to the recovery room in stable condition. Implants left internal jugular venous access device Estimated Blood Loss 50 Pathology None sent Complications No immediate complications Condition Stable Disposition PACU [facility] Billing Surgery - Charge Forward: Surgery Billing
[2024-02-06 15:05] VITALS: BP 111/66; PULSE 83; RESP 20; O2SAT 93
[2024-02-06 15:35] VITALS: BP 118/67; PULSE 75; RESP 16; O2SAT 97
[2024-02-06 16:05] VITALS: BP 118/70; PULSE 76; RESP 16
== END 2024-02-06 16:14 | disposition home or self-care (01) ==
PROVIDERS: PCP Family Medicine; Visit Provider Surgery
PROC: (CPT 36561; principal; 2024-02-06 13:30)
DX: C34.11 Malignant neoplasm of upper lobe, right bronchus or lung (principal); I10 Essential (primary) hypertension; J44.9 Chronic obstructive pulmonary disease, unspecified; M79.7 Fibromyalgia; E78.2 Mixed hyperlipidemia; K21.9 Gastro-esophageal reflux disease without esophagitis; G47.33 Obstructive sleep apnea (adult) (pediatric); E55.9 Vitamin D deficiency, unspecified; M06.9 Rheumatoid arthritis, unspecified; E11.9 Type 2 diabetes mellitus without complications; F41.8 Other specified anxiety disorders; M54.50 Low back pain, unspecified; G89.29 Other chronic pain; G25.81 Restless legs syndrome; F17.210 Nicotine dependence, cigarettes, uncomplicated; F12.90 Cannabis use, unspecified, uncomplicated; Z79.51 Long term (current) use of inhaled steroids; Z79.84 Long term (current) use of oral hypoglycemic drugs; Z79.891 Long term (current) use of opiate analgesic
CPT/HCPCS: 36561; 36415; 77001; 82948; 85025; C1788; J0690; J1644; J1885; J2250; J2371; J2704; J3010; J7030; J7120

== ENCOUNTER 2024-02-07 07:48 | Outpatient (CLI) | payer MEDICARE, MEDICAID, SELFPAY ==
[2024-02-07 08:05] VITALS: PULSE 98; O2SAT 93
[2024-02-07 08:10] VITALS: PULSE 112; O2SAT 87
[2024-02-07 08:15] VITALS: PULSE 111; O2SAT 88
[2024-02-07 08:20] VITALS: PULSE 112; O2SAT 91
[2024-02-07 08:30] VITALS: PULSE 93; O2SAT 93
--- NOTE | 2024-02-07 08:31 | HOMEO2EVAL ---
Evaluation was performed at [facility] Home Oxygen Evaluation RC: Home Oxygen (O2) Evaluation Start: 02/07/24 08:29 Freq: Status: Active Protocol: RPE Activity Type Activity Date Activity User E-sign Co-sign Detail Recorded Client Recorded Date Recorded By Document 02/07/24 08:05 DJO [email or web address] 02/07/24 08:31 DJO Document 02/07/24 08:10 DJO [email or web address] 02/07/24 08:31 DJO Document 02/07/24 08:15 [email or web address] [email or web address] 02/07/24 08:31 DJO Document 02/07/24 08:20 [email or web address] [email or web address] 02/07/24 08:31 DJO Document 02/07/24 08:30 [email or web address] [email or web address] 02/07/24 08:31 DJO 02/07/24 02/07/24 02/07/24 08:05 08:10 08:15 Home O2 Evaluation [Oxygen] -Test Phase Resting Exercise Exercise -Oxygen Delivery Room Air Room Air Nasal Cannula -Oxygen Flow Rate (L/min) 1 [Pulse Oximetry] -Pulse Oximetry (90-100 %) 93 87 L 88 L [Pulse Rate] -Pulse Rate (60-100 beats/min) 98 112 H 111 H [Evaluation] -Activity Tolerance [Exercise] -Ambulation Distance (feet) -Ambulation Distance (meters) [Charges] -Evaluation Charges O2 Evaluation by Pulmonary 02/07/24 02/07/24 08:20 08:30 Home O2 Evaluation [Oxygen] -Test Phase Exercise Resting -Oxygen Delivery Nasal Cannula Room Air -Oxygen Flow Rate (L/min) 2 [Pulse Oximetry] -Pulse Oximetry (90-100 %) 91 93 [Pulse Rate] -Pulse Rate (60-100 beats/min) 112 H 93 [Evaluation] -Activity Tolerance Good [Exercise] -Ambulation Distance (feet) 1,000 -Ambulation Distance (meters) 304.78 [Charges] -Evaluation Charges
== END 2024-02-07 07:49 | disposition home or self-care (01) ==
PROVIDERS: PCP Family Medicine; Visit Provider Internal Medicine Critical Care Medicine
DX: R06.02 Shortness of breath (principal); C34.90 Malignant neoplasm of unspecified part of unspecified bronchus or lung
CPT/HCPCS: 94618

== ENCOUNTER 2024-02-21 10:30 | Outpatient (RCR) | payer MEDICARE, OTHER, MEDICAID, SELFPAY ==
[2020-10-12 13:31] LABS: Basophils Percent Auto 0.4 % (0.2-1.2); Eosinophils Absolute Auto 0.3 K/mm3 (0-0.3); Eosinophils Percent Auto 4.8 % (0-4.4); Hematocrit 49.5 % (37.0-47.0); Hemoglobin 15.6 g/dL (12.0-15.0); Immature Granulocyte Absolute 0.02 K/mm3 (0.00-0.031); Immature Granulocyte Percent A 0.3 % (0-0.5); Lymphocytes Absolute Auto 1.45 K/mm3 (0.9-3.2); Lymphocytes Percent Auto 21.2 % (18.3-44.2); Mean Corpuscular HGB Conc 31.5 g/dl (32-36); Mean Corpuscular Hemoglobin 30.1 pg (26-34); Mean Corpuscular Volume 95.6 fl (80-100); Mean Platelet Volume 9.9 fl (7.4-10.4); Monocytes Absolute Auto 0.5 K/mm3 (0.1-0.6); Monocytes Percent Auto 7.3 % (2.6-8.5); Neutrophils Absolute Auto 4.5 K/mm3 (1.3-6.7); Platelet Count Result 216 k/mm3 (150-375); Red Blood Count 5.18 M/mm3 (4.2-5.4); Red Cell Distribution Width 12.2 % (11.5-14.5); White Blood Count 6.8 K/mm3 (4.5-10.0)
[2020-10-12 14:34] VITALS: BP 142/76; PULSE 68; RESP 16; TEMP 36.3; O2SAT 97
[2020-10-12 15:00] VITALS: BP 129/65
--- NOTE | 2020-10-12 15:03 | PC.NURSE ---
Obtained phlebotomy from the left forearm and obtained 530 ml of blood. Patient tolerated procedure well.
[2020-11-09 13:17] LABS: Basophils Percent Auto 0.3 % (0.2-1.2); Eosinophils Absolute Auto 0.2 K/mm3 (0-0.3); Eosinophils Percent Auto 1.9 % (0-4.4); Hematocrit 43.2 % (37.0-47.0); Hemoglobin 13.8 g/dL (12.0-15.0); Immature Granulocyte Absolute 0.04 K/mm3 (0.00-0.031); Immature Granulocyte Percent A 0.4 % (0-0.5); Lymphocytes Absolute Auto 1.76 K/mm3 (0.9-3.2); Lymphocytes Percent Auto 17.9 % (18.3-44.2); Mean Corpuscular HGB Conc 31.9 g/dl (32-36); Mean Corpuscular Hemoglobin 29.8 pg (26-34); Mean Corpuscular Volume 93.3 fl (80-100); Mean Platelet Volume 10.2 fl (7.4-10.4); Monocytes Absolute Auto 0.7 K/mm3 (0.1-0.6); Monocytes Percent Auto 7.3 % (2.6-8.5); Neutrophils Absolute Auto 7.1 K/mm3 (1.3-6.7); Neutrophils Percent Auto 72.2 % (45.5-73.1); Platelet Count Result 257 k/mm3 (150-375); Red Blood Count 4.63 M/mm3 (4.2-5.4); Red Cell Distribution Width 12.9 % (11.5-14.5); White Blood Count 9.8 K/mm3 (4.5-10.0)
--- NOTE | 2020-11-09 13:18 | PC.NURSE ---
Patient's hematocrit below 45.
[2020-12-07 12:56] LABS: Basophils Percent Auto 0.3 % (0.2-1.2); Eosinophils Absolute Auto 0.2 K/mm3 (0-0.3); Eosinophils Percent Auto 1.6 % (0-4.4); Hemoglobin 15.4 g/dL (12.0-15.0); Immature Granulocyte Absolute 0.03 K/mm3 (0.00-0.031); Immature Granulocyte Percent A 0.3 % (0-0.5); Lymphocytes Absolute Auto 1.77 K/mm3 (0.9-3.2); Mean Corpuscular HGB Conc 31.4 g/dl (32-36); Mean Corpuscular Hemoglobin 29.2 pg (26-34); Mean Corpuscular Volume 92.8 fl (80-100); Mean Platelet Volume 9.8 fl (7.4-10.4); Monocytes Absolute Auto 0.6 K/mm3 (0.1-0.6); Monocytes Percent Auto 6.8 % (2.6-8.5); Neutrophils Absolute Auto 6.7 K/mm3 (1.3-6.7); Platelet Count Result 271 k/mm3 (150-375); Red Blood Count 5.28 M/mm3 (4.2-5.4); Red Cell Distribution Width 12.8 % (11.5-14.5); White Blood Count 9.3 K/mm3 (4.5-10.0)
[2020-12-07 13:17] VITALS: BP 130/60; PULSE 76; RESP 20; TEMP 36.9
--- NOTE | 2020-12-07 13:52 | PC.NURSE ---
Obtained 525 ml of blood from the right forearm. Patient tolerated well.
[2020-12-07 13:56] VITALS: BP 123/60; PULSE 74; RESP 20; O2SAT 96
[2021-01-04 12:41] LABS: Basophils Percent Auto 0.3 % (0.2-1.2); Eosinophils Absolute Auto 0.1 K/mm3 (0-0.3); Eosinophils Percent Auto 1.9 % (0-4.4); Hematocrit 43.5 % (37.0-47.0); Hemoglobin 13.6 g/dL (12.0-15.0); Immature Granulocyte Absolute 0.03 K/mm3 (0.00-0.031); Immature Granulocyte Percent A 0.4 % (0-0.5); Lymphocytes Absolute Auto 1.07 K/mm3 (0.9-3.2); Lymphocytes Percent Auto 15.7 % (18.3-44.2); Mean Corpuscular HGB Conc 31.3 g/dl (32-36); Mean Corpuscular Hemoglobin 29.1 pg (26-34); Mean Corpuscular Volume 92.9 fl (80-100); Mean Platelet Volume 9.4 fl (7.4-10.4); Monocytes Absolute Auto 0.4 K/mm3 (0.1-0.6); Neutrophils Absolute Auto 5.1 K/mm3 (1.3-6.7); Neutrophils Percent Auto 75.7 % (45.5-73.1); Platelet Count Result 199 k/mm3 (150-375); Red Blood Count 4.68 M/mm3 (4.2-5.4); White Blood Count 6.8 K/mm3 (4.5-10.0)
--- NOTE | 2021-01-04 13:00 | PC.NURSE ---
Treatment cancelled due to protocol of Hgb <15 and Hct <45.
[2021-01-12 19:30] LABS: Thyroid Stimulating Hormone 0.385 uIU/mL (0.465-4.680)
--- NOTE | 2021-01-31 11:36 | PC.NURSE ---
Patient notified of upcoming appointment and stated she is canceled for the next few months per DR Izquierdo. I confirmed with YINKA Gomes and yes she is not returning for 3 months, Registration is aware as well.
[2021-03-14 13:50] LABS: Basophils Percent Auto 0.2 % (0.2-1.2); Eosinophils Absolute Auto 0.2 K/mm3 (0-0.3); Eosinophils Percent Auto 1.8 % (0-4.4); Hematocrit 46.7 % (37.0-47.0); Hemoglobin 14.6 g/dL (12.0-15.0); Immature Granulocyte Absolute 0.02 K/mm3 (0.00-0.031); Immature Granulocyte Percent A 0.2 % (0-0.5); Lymphocytes Absolute Auto 1.68 K/mm3 (0.9-3.2); Lymphocytes Percent Auto 20.1 % (18.3-44.2); Mean Corpuscular HGB Conc 31.3 g/dl (32-36); Mean Corpuscular Hemoglobin 29.1 pg (26-34); Mean Corpuscular Volume 93.2 fl (80-100); Monocytes Absolute Auto 0.6 K/mm3 (0.1-0.6); Monocytes Percent Auto 7.1 % (2.6-8.5); Neutrophils Absolute Auto 5.9 K/mm3 (1.3-6.7); Neutrophils Percent Auto 70.6 % (45.5-73.1); Platelet Count Result 220 k/mm3 (150-375); Red Blood Count 5.01 M/mm3 (4.2-5.4); White Blood Count 8.3 K/mm3 (4.5-10.0)
[2021-04-14 16:54] LABS: Free T4 Free Thyroxine 1.08 ng/mL (0.78-2.19)
[2021-04-14 17:10] LABS: Thyroid Stimulating Hormone 0.401 uIU/mL (0.465-4.680)
[2021-04-17 07:04] LABS: Triiodothyronine T3 Free 3.4 pg/mL (2.3-4.2)
[2021-08-17 10:56] LABS: Hemoglobin 15.9 g/dL (12.0-15.0); Mean Corpuscular HGB Conc 30.6 g/dl (32-36); Mean Corpuscular Hemoglobin 30.1 pg (26-34); Mean Corpuscular Volume 98.5 fl (80-100); Mean Platelet Volume 10.8 fl (7.4-10.4); Platelet Count Result 165 k/mm3 (150-375); Red Blood Count 5.28 M/mm3 (4.2-5.4); Red Cell Distribution Width 12.2 % (11.5-14.5); White Blood Count 6.7 K/mm3 (4.5-10.0)
[2021-08-17 16:23] LABS: Free T4 Free Thyroxine 1.28 ng/mL (0.78-2.19)
[2021-08-20 07:38] LABS: Triiodothyronine T3 Free 3.9 pg/mL (2.3-4.2)
[2021-09-05 12:57] VITALS: BP 133/57; PULSE 78; TEMP 36.6; O2SAT 99
--- NOTE | 2021-09-05 13:17 | PC.NURSE ---
Phlebotomy performed from the left antecubital and obtained 530 ml of blood. Patient tolerated well.
[2021-09-05 13:20] VITALS: BP 127/56
[2021-12-16 12:16] LABS: Basophils Percent Auto 0.3 % (0.2-1.2); Eosinophils Absolute Auto 0.1 K/mm3 (0-0.3); Eosinophils Percent Auto 1.9 % (0-4.4); Hematocrit 48.4 % (37.0-47.0); Hemoglobin 15.2 g/dL (12.0-15.0); Immature Granulocyte Absolute 0.01 K/mm3 (0.00-0.031); Immature Granulocyte Percent A 0.2 % (0-0.5); Lymphocytes Percent Auto 17.2 % (18.3-44.2); Mean Corpuscular HGB Conc 31.4 g/dl (32-36); Mean Corpuscular Hemoglobin 29.6 pg (26-34); Mean Corpuscular Volume 94.2 fl (80-100); Monocytes Absolute Auto 0.5 K/mm3 (0.1-0.6); Monocytes Percent Auto 7.3 % (2.6-8.5); Neutrophils Absolute Auto 4.7 K/mm3 (1.3-6.7); Neutrophils Percent Auto 73.1 % (45.5-73.1); Platelet Count Result 183 k/mm3 (150-375); Red Blood Count 5.14 M/mm3 (4.2-5.4); Red Cell Distribution Width 13.2 % (11.5-14.5); White Blood Count 6.4 K/mm3 (4.5-10.0)
[2021-12-16 12:19] LABS: Blood Urea Nitrogen 9 mg/dL (8-26); Carbon Dioxide 31 mmol/L (22-30); Chloride 98 mmol/L (98-109); Estimated Glomerular Filt Rate > 60; Glucose 248 mg/dL (70-105); Ionized Calcium (POC) 1.09 mmol/L (1.11-1.31); Potassium 4.4 mmol/L (3.5-4.9); Sodium 139 mmol/L (138-146)
[2021-12-16 13:53] LABS: Folic Acid 10.8 ng/mL (2.76->20)
[2022-03-17 11:29] LABS: Hematocrit 47.4 % (37.0-47.0); Hemoglobin 15.1 g/dL (12.0-15.0); Mean Corpuscular HGB Conc 31.9 g/dl (32-36); Mean Corpuscular Hemoglobin 30.1 pg (26-34); Mean Corpuscular Volume 94.6 fl (80-100); Mean Platelet Volume 10.1 fl (7.4-10.4); Platelet Count Result 203 k/mm3 (150-375); Red Blood Count 5.01 M/mm3 (4.2-5.4); Red Cell Distribution Width 12.4 % (11.5-14.5); White Blood Count 8.4 K/mm3 (4.5-10.0)
[2022-04-07 13:16] LABS: Hematocrit 49.2 % (37.0-47.0); Hemoglobin 15.7 g/dL (12.0-15.0); Mean Corpuscular HGB Conc 31.9 g/dl (32-36); Mean Corpuscular Hemoglobin 30.4 pg (26-34); Mean Corpuscular Volume 95.3 fl (80-100); Mean Platelet Volume 10.1 fl (7.4-10.4); Platelet Count Result 237 k/mm3 (150-375); Red Blood Count 5.16 M/mm3 (4.2-5.4); Red Cell Distribution Width 12.3 % (11.5-14.5); White Blood Count 8.4 K/mm3 (4.5-10.0)
[2022-09-15 10:53] LABS: Basophils Percent Auto 0.4 % (0.2-1.2); Eosinophils Absolute Auto 0.1 K/mm3 (0-0.3); Eosinophils Percent Auto 1.5 % (0-4.4); Hematocrit 47.4 % (37.0-47.0); Hemoglobin 15.2 g/dL (12.0-15.0); Immature Granulocyte Absolute 0.02 K/mm3 (0.00-0.031); Immature Granulocyte Percent A 0.2 % (0-0.5); Lymphocytes Absolute Auto 1.45 K/mm3 (0.9-3.2); Mean Corpuscular HGB Conc 32.1 g/dl (32-36); Mean Corpuscular Hemoglobin 29.9 pg (26-34); Mean Corpuscular Volume 93.1 fl (80-100); Mean Platelet Volume 9.6 fl (7.4-10.4); Monocytes Absolute Auto 0.6 K/mm3 (0.1-0.6); Neutrophils Absolute Auto 6.3 K/mm3 (1.3-6.7); Neutrophils Percent Auto 73.9 % (45.5-73.1); Platelet Count Result 257 k/mm3 (150-375); Red Blood Count 5.09 M/mm3 (4.2-5.4); Red Cell Distribution Width 12.9 % (11.5-14.5); White Blood Count 8.6 K/mm3 (4.5-10.0)
[2022-09-15 10:57] LABS: Blood Urea Nitrogen 11 mg/dL (8-26); Carbon Dioxide 31 mmol/L (22-30); Chloride 99 mmol/L (98-109); Estimated Glomerular Filt Rate > 60; Glucose 177 mg/dL (70-105); Ionized Calcium (POC) 1.16 mmol/L (1.11-1.31); Potassium 4.3 mmol/L (3.5-4.9); Sodium 141 mmol/L (138-146)
[2023-04-02 14:32] VITALS: BP 138/65; PULSE 70; TEMP 36.9; O2SAT 96
[2023-04-02 14:54] VITALS: BP 116/59; PULSE 76
--- NOTE | 2023-04-02 15:25 | PC.NURSE ---
Phlebotomy performed to left AC for 524ml, patient tolerated well.
[2024-02-15 13:57] LABS: Hepatitis B Surface Antigen Negative (Negative)
--- NOTE | 2024-02-19 08:18 | WPDRADIATPRO ---
Radiation Procedure Note - Date/Time Date/Time: 02/19/24 08:18 - Summary Summary: Procedure Date: 02/19/2024 RADIATION ONCOLOGY VERIFICATION SIMULATION PURPOSE: The patent initially underwent virtual CT simulation. A simple simulation was performed on the linear accelerator utilizing the integrated CBCT for isocenter verification prior to treatment delivery of the first fraction. EQUIPMENT USED: Simulation was performed on the linear accelerator. PROCEDURE DETAILS: This simulation was performed prior to the first radiation fraction to the right lung, hilum, mediastinum, SCV LN The patient was placed on the treatment couch with her body immobilized using a custom fabricated alpha-cradle in treatment position and aligned to the 3-point setup tattoos. An CBCT was acquired through the treatment area. The CBCT images were fused and aligned to the treatment planning CT image set. I reviewed the CT alignment images and made any necessary adjustments. Couch shifts were calculated in order to bring the patient into precise alignment prior to treatment delivery. ASSESSMENT: The isocenter alignment process was successful. ORDERS: Proceed with treatment as planned. Bjorn Rubin MD
--- NOTE | 2024-02-19 08:20 | WPDRADIATPRO ---
Radiation Procedure Note - Date/Time Date/Time: 02/19/24 08:20 - Summary Summary: SPECIAL TREATMENT MANAGEMENT MEDICAL NECESSITY: A special treatment management code (42442) has been charged for this patient due to the additional time and effort required of myself and the department staff while performing and/or managing a special treatment situation. This procedure has been charged only once during the entire course of treatment. SPECIAL TREATMENT PROCEDURE: Concurrent Chemotherapy The administration of concurrent chemotherapy may result in greater side effects during and after the patient?s planned course of radiation therapy. Radiation can react adversely with the effects of chemotherapy and create medical problems of a much greater severity than would be seen in a patient receiving radiation alone. This will considerably increase the complexity of the current treatment plan and on-going management of this patient. Bjorn Rubin MD
--- NOTE | 2024-02-19 08:20 | WPDRADONCOTV ---
On Treatment Visit - Date/Time of Treatment Date/Time: 02/19/24 08:20 History: RADIATION ONCOLOGY ON-TREATMENT VISIT DATE: 02/19/2024 DIAGNOSIS: 68 y/o F with limited stage small cell lung cancer involving the right hemithorax, mediastinum, right SCV ([id number]). I plan to treat her with definitive chemoradiation 60Gy/30Fx to begin w/C1 chemotherapy. SITE: right hemithorax, mediastinum, right SCV DOSE: 200 cGy of planned 6000 cGy (1 of 30 Fx) HISTORY: She reports feeling generally well. No complaints. Will start chemotherapy. EXAM: Well-appearing, NAD. Breathing comfortably on RA ASSESSMENT/PLAN: Tolerating radiotherapy well. Imaging checked. Continue radiation therapy as planned. He is noted to have 0/10 pain in clinic today. Her individualized pain management will therefore consist of no intervention needed as the patient notes no pain of significance. Bjorn Rubin MD H&P - Exam - Lab Results Laboratory Last Values WBC 8.6 K/mm3 (4.5-10.0) 09/15/22 10:47 RBC 5.09 M/mm3 (4.2-5.4) 09/15/22 10:47 Hgb 15.2 g/dL (12.0-15.0) H 09/15/22 10:47 Hct 47.4 % (37.0-47.0) H 09/15/22 10:47 MCV 93.1 fl (80-100) 09/15/22 10:47 MCH 29.9 pg (26-34) 09/15/22 10:47 MCHC 32.1 g/dl (32-36) 09/15/22 10:47 RDW 12.9 % (11.5-14.5) 09/15/22 10:47 Plt Count 257 k/mm3 (150-375) 09/15/22 10:47 MPV 9.6 fl (7.4-10.4) 09/15/22 10:47 Immature Gran % (Auto) 0.2 % (0-0.5) 09/15/22 10:47 Neut % (Auto) 73.9 % (45.5-73.1) H 09/15/22 10:47 Lymph % (Auto) 17.0 % (18.3-44.2) L 09/15/22 10:47 [place] % (Auto) 7.0 % (2.6-8.5) 09/15/22 10:47 Eos % (Auto) 1.5 % (0-4.4) 09/15/22 10:47 Baso % (Auto) 0.4 % (0.2-1.2) 09/15/22 10:47 Lymph # (Auto) 1.45 K/mm3 (0.9-3.2) 09/15/22 10:47 [place] # (Auto) 0.6 K/mm3 (0.1-0.6) 09/15/22 10:47 Eos # (Auto) 0.1 K/mm3 (0-0.3) 09/15/22 10:47 Baso # (Auto) 0.0 K/mm3 (0.0-0.1) 09/15/22 10:47 Abs Immat Gran (auto) 0.02 K/mm3 (0.00-0.031) 09/15/22 10:47 Absolute Neuts (auto) 6.3 K/mm3 (1.3-6.7) 09/15/22 10:47 Absolute Nucleated RBC 0.0 K/mm3 (0.0-0.012) 09/15/22 10:47 Nucleated RBC % 0.0 % (0.0-0.2) 09/15/22 10:47 Sodium 141 mmol/L (138-146) 09/15/22 10:56 Potassium 4.3 mmol/L (3.5-4.9) 09/15/22 10:56 Chloride 99 mmol/L (98-109) 09/15/22 10:56 Carbon Dioxide 31 mmol/L (22-30) H 09/15/22 10:56 BUN 11 mg/dL (8-26) 09/15/22 10:56 Creatinine 0.60 mg/dL (0.7-1.2) L 09/15/22 10:56 Estim Creat Clear Calc Not Reportable 09/15/22 10:56 Estimated GFR > 60 (59-) 09/15/22 10:56 Glucose 177 mg/dL (70-105) H 09/15/22 10:56 POC Venous Ion Calcium 1.16 mmol/L (1.11-1.31) 09/15/22 10:56 Vitamin B12 975.0 pg/mL (239-931) H 12/16/21 12:13 Folate 10.8 ng/mL (2.76->20) 12/16/21 12:13 TSH 0.401 uIU/mL (0.465-4.680) L 04/14/21 14:28 Free T4 1.28 ng/mL (0.78-2.19) 08/17/21 10:55 Free T3 3.9 pg/mL (2.3-4.2) 08/17/21 10:55 Hep Bs Antigen Negative (Negative) 02/15/24 12:09
[2024-02-19 10:16] VITALS: BP 118/66; PULSE 86; TEMP 36.4; O2SAT 97
[2024-02-19 11:25] LABS: Hematocrit 39.6 % (37.0-47.0); Hemoglobin 12.5 g/dL (12.0-15.0); Mean Corpuscular HGB Conc 31.6 g/dl (32-36); Mean Corpuscular Hemoglobin 28.1 pg (26-34); Platelet Count Result 287 k/mm3 (150-375); Red Blood Count 4.45 M/mm3 (4.2-5.4); White Blood Count 9.6 K/mm3 (4.5-10.0)
[2024-02-19 11:26] LABS: Basophils Percent Auto 0.2 % (0.2-1.2); Eosinophils Absolute Auto 0.1 K/mm3 (0-0.3); Eosinophils Percent Auto 1.5 % (0-4.4); Immature Granulocyte Absolute 0.04 K/mm3 (0.00-0.031); Immature Granulocyte Percent A 0.4 % (0-0.5); Lymphocytes Absolute Auto 1.42 K/mm3 (0.9-3.2); Lymphocytes Percent Auto 14.8 % (18.3-44.2); Mean Platelet Volume 9.3 fl (7.4-10.4); Monocytes Absolute Auto 0.7 K/mm3 (0.1-0.6); Monocytes Percent Auto 7.7 % (2.6-8.5); Neutrophils Absolute Auto 7.2 K/mm3 (1.3-6.7); Neutrophils Percent Auto 75.4 % (45.5-73.1)
[2024-02-19] MEDS: ALTEPLASE 2 MG VIAL (CATHFLO) IV PUSH ×2 (11:28→13:59)
[2024-02-19 11:33] LABS: Blood Urea Nitrogen 17 mg/dL (8-26); Carbon Dioxide 29 mmol/L (22-30); Chloride 94 mmol/L (98-109); Estimated CRCL calculation 108 ml/min; Estimated Glomerular Filt Rate > 60; Glucose 174 mg/dL (70-105); Ionized Calcium (POC) 1.11 mmol/L (1.11-1.31); Potassium 3.6 mmol/L (3.5-4.9); Sodium 134 mmol/L (138-146)
[2024-02-19 12:24] LABS: Alanine Aminotransferase 20 U/L (6-35); Albumin Level 3.9 g/dL (3.5-5.1); Alkaline Phosphatase 111 U/L (38-126); Anion Gap 8 mmol/L (4-12); Aspartate Amino Transferase 25 U/L (14-36); Bilirubin,Total 0.2 mg/dL (0.2-1.3); Blood Urea Nitrogen 18 mg/dL (7-17); Calcium 8.7 mg/dL (8.4-10.2); Carbon Dioxide 30 mmol/L (22-30); Chloride 94 mmol/L (98-107); Estimated CRCL calculation 85 ml/min; Estimated Glomerular Filt Rate > 60; Glucose 172 mg/dL (65-110); Magnesium 1.6 mg/dL (1.6-2.3); Potassium 3.6 mmol/L (3.4-5.0); Sodium 132 mmol/L (137-145)
[2024-02-19 12:51] LABS: Thyroid Stimulating Hormone 0.499 uIU/mL (0.465-4.680)
[2024-02-19] MEDS: dexAMETHasone SOD 4 MG/ML INJ 12 MG in SODIUM CHLORIDE 0.9% IV 100 ML 206 MG IVPB (13:44)
[2024-02-19] MEDS: PALONOSETRON HCL 0.25 MG/5 ML VIAL IV PUSH (13:44)
[2024-02-19] MEDS: OLANZapine DISPERTAB 5 MG PO (13:44)
[2024-02-19] MEDS: FOSAPREPITANT DIMEGLUMINE 150 MG in SODIUM CHLORIDE 0.9% IV 150 ML 300 MG IVPB (13:44)
[2024-02-19 16:32] VITALS: BP 122/78
[2024-02-20 10:26] VITALS: BP 128/69; PULSE 86; TEMP 36.4; O2SAT 96
[2024-02-20] MEDS: dexAMETHasone SOD 4 MG/ML INJ 12 MG in SODIUM CHLORIDE 0.9% IV 100 ML 206 MG IVPB (10:52)
[2024-02-20] MEDS: HEPARIN SODIUM LOCK FLUSH 500 UNITS/5 ML SYRINGE IV PUSH (12:47)
[2024-02-20 12:50] VITALS: BP 112/87
[2024-02-21 10:30] VITALS: BP 122/77; PULSE 95; TEMP 36.4; O2SAT 98
[2024-02-21] MEDS: dexAMETHasone SOD 4 MG/ML INJ 12 MG in SODIUM CHLORIDE 0.9% IV 100 ML 206 MG IVPB (10:54)
[2024-02-21] MEDS: ONDANSETRON INJ 4 MG/2 ML VIAL 8 MG IV PUSH (10:55)
[2024-02-21 11:19] LABS: NIL 0.03 IU/mL; Quantiferon TB Plus, 1T NEGATIVE (NEGATIVE); TB2-NIL <0.00 IU/mL
[2024-02-21] MEDS: HEPARIN SODIUM LOCK FLUSH 500 UNITS/5 ML SYRINGE IV PUSH (12:59)
== END 2024-03-04 08:46 ==
LOC: AMCINF 10:30
PROVIDERS: Nurse Practitioner Family; PCP Internal Medicine; Visit Provider Internal Medicine Hematology & Oncology
DX: Z51.11 Encounter for antineoplastic chemotherapy (principal); C34.90 Malignant neoplasm of unspecified part of unspecified bronchus or lung; D75.1 Secondary polycythemia; M05.60 Rheumatoid arthritis of unspecified site with involvement of other organs and systems; M79.7 Fibromyalgia; M18.9 Osteoarthritis of first carpometacarpal joint, unspecified; I10 Essential (primary) hypertension; J96.01 Acute respiratory failure with hypoxia; J43.9 Emphysema, unspecified; J30.2 Other seasonal allergic rhinitis; E11.8 Type 2 diabetes mellitus with unspecified complications; E66.9 Obesity, unspecified; E55.9 Vitamin D deficiency, unspecified; K21.9 Gastro-esophageal reflux disease without esophagitis; K81.9 Cholecystitis, unspecified; K82.8 Other specified diseases of gallbladder; K85.90 Acute pancreatitis without necrosis or infection, unspecified; G47.33 Obstructive sleep apnea (adult) (pediatric); G25.81 Restless legs syndrome; F17.210 Nicotine dependence, cigarettes, uncomplicated; F41.9 Anxiety disorder, unspecified; F32.9 Major depressive disorder, single episode, unspecified; Z96.652 Presence of left artificial knee joint; Z72.821 Inadequate sleep hygiene; Z86.010 Personal history of colon polyps
CPT/HCPCS: 36415; 36593; 73130; 80047; 80053; 82607; 82746; 83735; 84439; 84443; 84481; 85025; 85027; 86480; 87340; 93971; 96367; 96368; 96375; 96413; 96417; 99195; A9270; J1100; J1453; J2405; J2469; J2997; J7040; J7050; J7060; J9022; J9045; J9181

== ENCOUNTER 2024-02-27 05:44 | Outpatient (CLI) | payer MEDICARE, MEDICAID, SELFPAY ==
[2024-02-26 13:13] VITALS: BMI 25.0
--- NOTE | 2024-02-26 13:21 | PC.NURSE ---
Pre Radiology instructions Report to the outpatient [facility] on date 829__ at time 02/27/24_ for procedure Time: _1030_ YOU MAY BE MONITORED AT HOSPITAL FOR UP TO 4 HOURS AFTER YOUR PROCEDURE. A visitor will be allowed to accompany the patient into the hospital. You and your visitor will be asked to self-screen and do not enter if you have any COVID symptoms. A mask is OPTIONAL within the hospital. Patients are to have no food or drink 6 hours prior to procedure time Driving will be restricted after the procedure, you must have a person to drive you home. Labs will be drawn in preop area and once reviewed, you will be taken to radiology area for procedure. When the procedure is completed, you will be taken to outpatient where you will be monitored for several hours. You may have one visitor in this area. Other than holding anti-coagulants, patient may take other medication(s) as scheduled. Prior to your appointment date patients are instructed to hold anti-coagulants after discussing with ordering provider to stop. If unable to discontinue anti-coagulants please notify radiologist. ? No aspirin or warfarin (Coumadin) for 7 days prior to the procedure. ? No clopidogrel (Plavix), ticagrelor (Brilinta), prasugrel (Effient) or dabigatran (Pradaxa) for 5 days prior to the procedure. ? No rivaroxaban (Xarelto), apixaban (Eliquis), dipyridamole (Aggrenox or Persantine) or cilostazol (Pletal) for 2 days prior to the procedure. Medications to discontinue per physician: ___none Date to take last dose: Please leave all valuables, including medications, at home the day of procedure. The hospital will not accept responsibility for valuables. Wear comfortable, loose fitting clothing.? Follow any additional instructions given to you from ordering provider. Telephone instructions given to kody cuevas___and asked if any additional questions and then verbalized understanding. Patient advised to call scheduling provider office or registration scheduling [phone] if any additional questions.
[2024-02-27] VITALS (7 sets, daily range): BP systolic 115–136; BP diastolic 70–81; PULSE 116–120; RESP 16–20; TEMP 36.6; O2SAT 94–95; BMI 24.0
--- NOTE | ~2024-02-27 | US_ITS ---
EXAMINATION: US thoracentesis DATE: 02/27/2024 11:44 INDICATION: Right pleural effusion TECHNIQUE: The procedure and its risks and benefits were discussed with the patient. Potential risks discussed included bleeding, infection, and pneumothorax. The patient understood the risks and agreed to proceed. The skin was prepped and draped in sterile fashion. 1% lidocaine was used for local anes thesia. Under ultrasound guidance, a 5 Fr catheter with trochar was advanced into the right pleural e ffusion. Fluid was aspirated. The catheter was removed, and a dressing was applied. There were no imm ediate complications. FINDINGS: Ultrasound images demonstrate a moderate-sized complex right pleural effusion and the catheter within the fluid. There is extensive hypoechoic debris and a few curvilinear internal septations which are more evident on real-time imaging. This resulted in recurrent clotting of the catheter limiting the a mount of fluid which could be aspirated. The IMPRESSION: 1. Successful ultrasound-guided thoracentesis yielding 300 mL of yellowish fluid. The effusion was c omplex and a significant portion of the fusion was unable to be aspirated due to clogging of the cath eter. Reviewed, dictated and finalized at location A. IMPRESSION: 1. Successful ultrasound-guided thoracentesis yielding 300 mL of yellowish flu id. The effusion was complex and a significant portion of the fusion was unable to be aspirated due to clogging of the catheter.
--- NOTE | ~2024-02-27 | XR_ITS ---
EXAMINATION: [id number] DATE: 02/27/2024 11:22 INDICATION: Status post right thoracentesis TECHNIQUE: frontal view of the chest was obtained. COMPARISON: Chest radiograph dated 12/11/2023 FINDINGS: Left internal jugular central venous port catheter with distal tip at the cephalad superior vena cava . Persistent consolidation of the right upper lobe without significant volume loss consistent with li toro primary bronchogenic carcinoma with associated postobstructive atelectasis and/or pneumonia. Per sistent small to moderate-sized right pleural effusion with loculated component along the lateral rig ht midlung zone and associated basilar atelectasis. Left lung remains clear with no airspace opacitie s or pleural effusion. No pulmonary edema or pneumothorax. Heart size is normal. Cholecystectomy clip s in right upper quadrant. IMPRESSION: 1. Persistent small to moderate-sized likely complex at least partially loculated right pleural effus ion with no pneumothorax post right thoracentesis. 2. Consolidation of the right upper lobe without associated volume loss consistent with primary bronc hogenic carcinoma and likely associated postobstructive atelectasis and/or pneumonia. Reviewed, dictated and finalized at location A. IMPRESSION: 1. Persistent small to moderate-sized likely complex at least partially loculat ed right pleural effusion with no pneumothorax post right thoracentesis. 2. Consolidation of the right upper lobe without associated volume loss consist ent with primary bronchogenic carcinoma and likely associated postobstructive a telectasis and/or pneumonia.
[2024-02-27 09:15] LABS: INR 1.1; Prothrombin Time 14.7 Seconds (11.1-14.7)
[2024-02-27 11:50] LABS: Glucose Point of Care 116 mg/dl (65-105)
== END 2024-02-27 12:56 | disposition home or self-care (01) ==
PROVIDERS: PCP Family Medicine; Referring Provider Radiology Radiation Oncology; Visit Provider Radiology Diagnostic Radiology
DX: J90 Pleural effusion, not elsewhere classified (principal); J18.1 Lobar pneumonia, unspecified organism
CPT/HCPCS: 32555; 36415; 82948; 85610; 88108; 88305